=== PATIENT | female | born 1960 | race Caucasian/White ===

== ENCOUNTER 2016-05-13 05:00 | Inpatient (IN) ==
[2016-05-13] MEDS ORDERED: methylPREDNISolone 125 MG/2 ML VIAL IVP ONE (05:19)
[2016-05-13] MEDS ORDERED: Ipratropium/Albuterol Neb 3 ML IH ONE (05:19)
[2016-05-13] MEDS ORDERED: *HR* Promethazine 25 MG/ML VIAL IVP ONE (05:27)
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
[2016-05-13 05:49] LABS: Basophils % 0.3 %; Hemoglobin 15.5 g/dL (11.5-15.4); Immature Granulocytes % 0.5 % (0-4)
[2016-05-13 05:51] LABS: Eosinophils # 0.1 K/mcL (0.0-0.6); Eosinophils % 0.6 %; Hematocrit 48.1 % (35.3-44.9); Immature Platelets 21.2 % (1.1-6.1); Lymphocytes # 1.3 K/mcL (0.6-4.6); Lymphocytes % 10.8 %; Mean Corpuscular HGB Conc 32.2 g/dL (31.6-35.5); Mean Corpuscular Hemoglobin 28.1 pg (28.0-33.3); Mean Corpuscular Volume 87.3 fL (83.0-100.0); Mean Platelet Volume 13.1 fL (9.4-12.4); Neutrophils # 9.8 K/mcL (1.6-8.9); Platelet Count 118 K/mcL (140-400); Red Blood Count 5.51 M/mcL (3.82-4.97); Red Cell Distribution Width 15.9 % (11.5-14.5); Segmented Neutrophils % 79.8 %
[2016-05-13 06:02] LABS: Calcium 8.9 mg/dL (8.6-10.8); Potassium 3.4 mEq/L (3.5-4.5)
[2016-05-13 06:29] LABS: Platelet Estimate Slight Decrease (Normal)
[2016-05-13 06:30] LABS: Polychromasia 1+ (Not Present)
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
[2016-05-13] MEDS ORDERED: Vancomycin 1,000 MG in D5% in Water 250 ML IVPB ONE (06:57)
[2016-05-13] MEDS ORDERED: Cefepime HCl 2,000 MG in D5% in Water (Mini-Bag+) 100 ML IVPB ONE (06:58)
[2016-05-13] MEDS ORDERED: *HR* OxyCODONE/APAP 10/325 TABLET PO ONE (07:19)
[2016-05-13] MEDS ORDERED: *HR* Morphine 2 MG/ML SYRINGE IVP PRN (08:06)
[2016-05-13] MEDS ORDERED: Naloxone 0.4 MG/ML INJ IVP PRN (08:06)
[2016-05-13] MEDS ORDERED: *HR* Digoxin 0.125 MG TABLET PO SCH ×3 (08:15→22:28)
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
[2016-05-13] MEDS ORDERED: Torsemide 20 MG TABLET PO SCH (09:00)
[2016-05-13] MEDS ORDERED: Colchicine 0.6 MG TABLET PO SCH (09:00)
[2016-05-13] MEDS ORDERED: Valsartan 80 MG TABLET PO SCH ×2 (09:00→21:00)
[2016-05-13] MEDS: Magnesium Oxide 400 MG TABLET PO SCH (10:02)
[2016-05-13] MEDS: APIXABAN 5 MG TABLET PO SCH ×2 (10:06→21:48)
[2016-05-13] MEDS: Torsemide 20 MG TABLET PO SCH ×2 (13:05→21:48)
[2016-05-13] MEDS: *HR* OxyCODONE/APAP 5/325 TABLET PO PRN ×2 (13:09→21:48)
[2016-05-13 18:30] LABS: Bilirubin,Urine Negative (Negative); Blood,Urine Trace (Negative); Clarity,Urine Clear (Clear); Color,Urine Dark Yellow (Yellow); Glucose,Urine (UA) Normal (Normal); Ketones,Urine Negative (Negative); Leukocyte Esterase,Urine Negative (Negative); Nitrite,Urine Negative (Negative); Protein,Urine Trace mg/dL (Neg-Trace); Specific Gravity,Urine 1.021 (1.010-1.025); Urobilinogen,Urine Normal (Normal)
[2016-05-13 18:32] LABS: Bacteria,Urine None Seen per hpf (None-Few); Hyaline Casts,Urine None Seen per lpf (None-Few); Squamous Epithelial Cell,Urine Many per lpf (None-Few); WBC,Urine 0-3 per hpf (0-3)
[2016-05-13] MEDS: Cefepime HCl 2,000 MG in D5% in Water (Mini-Bag+) 100 ML IVPB SCH (18:38)
[2016-05-13] MEDS: Vancomycin 1,000 MG in D5% in Water 250 ML IVPB SCH (20:00)
[2016-05-13] MEDS: Melatonin 3 MG TABLET PO SCH (21:48)
[2016-05-13] MEDS: Colchicine 0.6 MG TABLET PO SCH (21:56)
[2016-05-14 00:27] LABS: Basophils % 0.3 %; Eosinophils # 0.1 K/mcL (0.0-0.6); Eosinophils % 0.8 %; Hematocrit 44.7 % (35.3-44.9); Hemoglobin 14.4 g/dL (11.5-15.4); Immature Granulocytes % 0.5 % (0-4); Immature Platelets 19.8 % (1.1-6.1); Lymphocytes # 1.6 K/mcL (0.6-4.6); Lymphocytes % 12.5 %; Mean Corpuscular HGB Conc 32.2 g/dL (31.6-35.5); Mean Corpuscular Hemoglobin 28.2 pg (28.0-33.3); Mean Corpuscular Volume 87.5 fL (83.0-100.0); Mean Platelet Volume 13.8 fL (9.4-12.4); Monocytes # 1.4 K/mcL (0.0-1.3); Monocytes % 11.1 %; Neutrophils # 9.6 K/mcL (1.6-8.9); Platelet Count 102 K/mcL (140-400); Red Blood Count 5.11 M/mcL (3.82-4.97); Red Cell Distribution Width 15.6 % (11.5-14.5); Segmented Neutrophils % 74.8 %
[2016-05-14 00:31] LABS: VBG HCO3 31.2 mEq/L (21-27); VBG PH 7.43 pH Units (7.32-7.42)
[2016-05-14 00:36] LABS: Ionized Calcium 1.13 mmol/L (1.15-1.35)
[2016-05-14 00:41] LABS: Albumin 3.2 g/dL (3.5-5.0); Albumin/Globulin Ratio 0.7 (1.1-2.2); Bilirubin,Total 2.5 mg/dL (0.2-1.2); Calcium 8.7 mg/dL (8.6-10.8); Chol/HDL Ratio 2.4 (0-4.9); Globulin 4.5 g/dL (2.4-3.5); Magnesium 1.9 mg/dL (1.6-2.6); Phosphorous 3.3 mg/dL (2.3-4.7); Potassium 3.5 mEq/L (3.5-4.5); Total Protein 7.7 g/dL (6.0-8.3)
[2016-05-14 00:48] LABS: Digoxin 0.3 ng/mL (0.8-2.0)
[2016-05-14] MEDS: Cefepime HCl 2,000 MG in D5% in Water (Mini-Bag+) 100 ML IVPB SCH ×2 (06:25→17:10)
[2016-05-14] MEDS: Magnesium Oxide 400 MG TABLET PO SCH (08:18)
[2016-05-14] MEDS: *HR* OxyCODONE/APAP 5/325 TABLET PO PRN ×3 (08:18→21:37)
[2016-05-14] MEDS: Vancomycin 1,000 MG in D5% in Water 250 ML IVPB SCH ×2 (08:18→21:25)
[2016-05-14] MEDS: Torsemide 20 MG TABLET PO SCH (08:18)
[2016-05-14] MEDS: APIXABAN 5 MG TABLET PO SCH ×2 (08:18→21:25)
--- NOTE | 2016-05-14 11:11 | Internal Med Progress Note ---
Date of Encounter: 05/14/16 Time of Encounter: 11:09 - Assessment and plan (1) CAP (community acquired pneumonia) Current Visit: Yes Status: Acute Assessment and plan: Patient presents with upper respiratory tract symptoms. Chest x-ray shows mild right-sided pleural effusion with possible underlying consolidation, reviewed independently. Could be having bronchitis and pneumonia, viral versus bacterial. Has been started on IV cefepime and vancomycin. Follow blood cultures and de-escalate antibiotics as needed. Continue supportive care and supplemental oxygen. (2) Acute on chronic systolic (congestive) heart failure Current Visit: Yes Status: Acute Assessment and plan: Patient does have history of systolic and diastolic CHF and came in with elevated BNP and chest x-ray showing pulmonary vascular congestion. She does feel better today although her BNP got worse. We will change diuretics to IV Lasix and monitor urine output. Avoid IV hydration. Continue home medications. Echocardiogram from December 2015 shows EF of 15-20% with global left ventricular systolic dysfunction and moderate diastolic dysfunction with mitral and tricuspid regurgitation and moderate pulmonary hypertension. She does follow with cardiology as outpatient and also is followed at [facility] and is on the list for heart transplant. (3) Gout Current Visit: Yes Status: Chronic Assessment and plan: Continue allopurinol and colchicine. Not in acute exacerbation. Qualifiers: Gout site: unspecified site Gout etiology: unspecified cause Chronicity: chronic Presence of tophus: without tophus Qualified Code(s): M1A.9XX0 - Chronic gout, unspecified, without tophus (tophi) (4) Ischemic cardiomyopathy Current Visit: Yes Status: Chronic (5) Atrial fibrillation Current Visit: Yes Status: Chronic Assessment and plan: Currently rate controlled. Continue Tikosyn. Continue correction anticoagulation with Eliquis. Qualifiers: Atrial fibrillation type: paroxysmal Qualified Code(s): I48.0 - Paroxysmal atrial fibrillation (6) CAD (coronary artery disease) Current Visit: Yes Status: Chronic Assessment and plan: resume home meds; Qualifiers: Coronary Disease-Associated Artery/Lesion type: [place] artery [place] vs. transplanted heart: [place] heart Associated angina: without angina Qualified Code(s): I25.10 - Atherosclerotic heart disease of [place] coronary artery without angina pectoris (7) MINNIE (acute kidney injury) Current Visit: Yes Status: Acute Assessment and plan: Serum creatinine noted to be slightly elevated from baseline. Expect worsening with IV Lasix but patient does need Lasix at this time. Monitor serum creatinine closely. Hold valsartan. - Subjective Interval history: Reports feeling much better and wants to go home today. Improved myalgia, congestion. No chest pain or shortness of breath. Has some leg swelling at baseline, which is not any worse now. - Constitutional Vitals: Temp Pulse Resp BP Pulse Ox 98.5 F 81 14 101/70 90 L 05/14/16 00:15 05/14/16 00:15 05/14/16 00:15 05/14/16 00:15 05/14/16 00:15 General appearance: Present: A&O X 3, answers questions appropriately - Respiratory Respiratory exam: Present: decreased breath sounds (At right base), CTAB. Absent: accessory muscle use, rales, rhonchi, wheezes - Cardiovascular Cardiovascular exam: Present: irregular rhythm, +S1, +S2. Absent: diastolic murmur, gallop, rubs, systolic murmur - GI/Abdominal GI/Abdominal exam: Present: normal bowel sounds, soft, no peritoneal signs. Absent: distended, tenderness - Extremities Exam Extremities exam: Present: full ROM, pedal edema, warm, radial pulses palpable and symetrical. Absent: calf tenderness, cyanotic - Neurological Exam Neurological exam: Present: CN II-XII intact, oriented X3, no focal deficits. Absent: pronater drift, facial droop, speech deficit - Skin Skin exam: Present: dry, intact Internal Medicine: Result - Labs CBC & Chem 7: 05/14/16 00:17 05/14/16 00:17 Labs: Short CBC 05/14/16 Range/Units 00:17 WBC 12.8 H (4.3-11.1) K/mcL Hgb 14.4 (11.5-15.4) g/dL Hct 44.7 (35.3-44.9) % Plt Count 102 L (140-400) K/mcL Neutrophils # 9.6 H (1.6-8.9) K/mcL BMP 05/14/16 00:17 Sodium 134 L Potassium 3.5 Chloride 98 Carbon Dioxide 26 BUN 19 Creatinine 1.28 H Glucose 118 H Calcium 8.7 Cardiac Enzymes 05/13/16 05/13/16 05/14/16 Range/Units 11:11 17:20 00:17 Troponin I 0.09 H* 0.09 H* 0.09 H* (0-0.03) ng/mL Liver Function 05/14/16 Range/Units 00:17 Total Bilirubin 2.5 H (0.2-1.2) mg/dL AST 21 (5-34) Units/L ALT 9 (0-55) Units/L Alkaline Phosphatase 113 (38-126) Units/L Albumin 3.2 L (3.5-5.0) g/dL Urine 05/13/16 Range/Units 18:00 Urine Color Dark Yellow (Yellow) Urine Clarity Clear (Clear) Urine pH 6.0 (5.0-8.0) pH Units Ur Specific [place] 1.021 (1.010-1.025) Urine Protein Trace (Neg-Trace) mg/dL Urine Glucose (UA) Normal (Normal) mg/dL Consult Discharge Plan - Plan Referrals: Giovanny Reardon MD [Primary Care Provider] -
[2016-05-14] MEDS: Furosemide 40 MG/4 ML VIAL IVP SCH (11:49)
[2016-05-14] MEDS ORDERED: *HR* Metoprolol 5 MG/5 ML VIAL IVP PRN (17:16)
[2016-05-14] MEDS: Melatonin 3 MG TABLET PO SCH (21:25)
[2016-05-14] MEDS: Colchicine 0.6 MG TABLET PO SCH (21:27)
[2016-05-15 05:42] VITALS: BP 107/82
[2016-05-15] MEDS: Cefepime HCl 2,000 MG in D5% in Water (Mini-Bag+) 100 ML IVPB SCH (06:25)
[2016-05-15] MEDS: Furosemide 40 MG/4 ML VIAL IVP SCH ×2 (06:25→09:12)
[2016-05-15 06:37] LABS: Basophils % 0.3 %; Eosinophils # 0.3 K/mcL (0.0-0.6); Hematocrit 42.9 % (35.3-44.9); Immature Granulocytes % 0.6 % (0-4); Lymphocytes # 1.4 K/mcL (0.6-4.6); Lymphocytes % 14.4 %; Mean Corpuscular HGB Conc 32.6 g/dL (31.6-35.5); Mean Corpuscular Hemoglobin 28.6 pg (28.0-33.3); Mean Corpuscular Volume 87.6 fL (83.0-100.0); Mean Platelet Volume 13.7 fL (9.4-12.4); Monocytes # 0.7 K/mcL (0.0-1.3); Monocytes % 6.8 %; Neutrophils # 7.2 K/mcL (1.6-8.9); Platelet Count 96 K/mcL (140-400); Red Cell Distribution Width 15.8 % (11.5-14.5); Segmented Neutrophils % 74.9 %
[2016-05-15 07:07] LABS: Calcium 8.5 mg/dL (8.6-10.8)
--- NOTE | 2016-05-15 07:10 | Electrocardiograph Report ---
[address] [place], [place] [address] Test Date: 2016-05-13 Pat Name: Nadja Avina Department: 105 Room: 2NE26 Gender: F Manager Deli: : 1960 Requested By: Jesse Sotelo Order Number: [id number] Reading MD: Brayden Carbajal MD Measurements Intervals [place] Rate: 92 P: 43 [place]: 199 QRS: -69 QRSD: 110 T: 58 QT: 399 QTc: 449 Interpretive Statements SINUS RHYTHM LEFT ATRIAL ENLARGEMENT MARKED LEFT AXIS DEVIATION LATERAL MYOCARDIAL INFARCTION, OF INDETERMINATE AGE Electronically Signed On 05-15-2016 7:08:28 EST by Brayden Carbajal MD
[2016-05-15] MEDS: Vancomycin 1,000 MG in D5% in Water 250 ML IVPB SCH (09:13)
[2016-05-15] MEDS: APIXABAN 5 MG TABLET PO SCH (09:14)
[2016-05-15] MEDS: Magnesium Oxide 400 MG TABLET PO SCH (09:14)
[2016-05-15] MEDS: *HR* OxyCODONE/APAP 5/325 TABLET PO PRN (10:04)
--- NOTE | 2016-05-15 10:07 | Discharge Summary ---
Date of Encounter: 05/15/16 Time of Encounter: 10:04 - Discharge Diagnosis (1) CAP (community acquired pneumonia) Priority: Primary Status: Acute (2) Acute on chronic systolic (congestive) heart failure Priority: Primary Status: Acute (3) Gout Priority: Secondary Status: Chronic Qualifiers: Gout site: unspecified site Gout etiology: unspecified cause Chronicity: chronic Presence of tophus: without tophus Qualified Code(s): M1A.9XX0 - Chronic gout, unspecified, without tophus (tophi) (4) Ischemic cardiomyopathy Priority: Secondary Status: Chronic (5) Atrial fibrillation Priority: Secondary Status: Chronic Qualifiers: Atrial fibrillation type: paroxysmal Qualified Code(s): I48.0 - Paroxysmal atrial fibrillation (6) CAD (coronary artery disease) Priority: Secondary Status: Chronic Qualifiers: Coronary Disease-Associated Artery/Lesion type: [place] artery [place] vs. transplanted heart: [place] heart Associated angina: without angina Qualified Code(s): I25.10 - Atherosclerotic heart disease of [place] coronary artery without angina pectoris (7) MINNIE (acute kidney injury) Priority: Primary Status: Acute - Discharge Medications Prescriptions: Benzonatate [Tessalon] 100 mg PO TID PRN #30 capsule PRN Reason: Cough Levofloxacin [Levaquin] 500 mg PO DAILY #5 tablet Home Medications: Allopurinol [Zyloprim 100 MG] 100 mg PO DAILY 05/13/16 [History] Apixaban [Eliquis] 5 mg PO BID 05/13/16 [History] Clopidogrel [Plavix] 75 mg PO DAILY 05/13/16 [History] Digoxin [Lanoxin] 0.125 mg PO MOWEFR 05/13/16 [History] Dofetilide [Tikosyn] 0.25 mg PO BID 05/13/16 [History] Magnesium Oxide [Mag-Ox] 400 mg PO DAILY 05/13/16 [History] Melatonin 3 mg PO HS 05/13/16 [History] Nitroglycerin [Nitrostat] 0.4 mg SL AD PRN 05/13/16 [History] Oxycodone HCl 10 mg PO Q6H PRN 05/13/16 [History] Potassium Chloride 20 meq PO BID 05/13/16 [History] Promethazine [Phenergan] 25 mg PO Q6H PRN 05/13/16 [History] Simvastatin [Zocor] 40 mg PO HS 05/13/16 [History] Torsemide [Demadex] 80 mg PO DAILY 05/13/16 [History] Valsartan 40 mg PO DAILY 05/13/16 [History] Benzonatate [Tessalon] 100 mg PO TID PRN #30 capsule 05/15/16 [Rx] Levofloxacin [Levaquin] 500 mg PO DAILY #5 tablet 05/15/16 [Rx] Allergies/Adverse Reactions: Allergies Amoxicillin Allergy (Verified 04/01/15 15:10) Hives aspirin Allergy (Verified 04/01/15 15:10) Anaphylaxis celecoxib [From Celebrex] Allergy (Verified 04/01/15 15:10) Anaphylaxis dicyclomine Allergy (Verified 04/01/15 15:10) Hives doxycycline Allergy (Verified 04/01/15 15:10) Hives gabapentin [From Neurontin] Allergy (Verified 04/01/15 15:10) Hives gentamicin [Gentamicin] Allergy (Verified 04/01/15 15:10) Hives methylprednisolone Allergy (Verified 04/01/15 15:10) Palpitations povidone-iodine [From Betadine] Allergy (Verified 04/01/15 15:10) Hives ramipril [From Altace] Allergy (Verified 04/01/15 15:10) Cough soap [From Betadine] Allergy (Verified 04/01/15 15:10) Hives Sulfa (Sulfonamide Antibiotics) Allergy (Verified 04/01/15 15:10) Palpitations Date of admission: 05/13/16 07:31 Primary care physician: Giovanny Reardon MD Discharging clinician: Libra Lima Anticipated date of discharge: 05/15/16 - Patient Status Disposition: Home, Self-Care Condition: Good Functional capacity at discharge: independent ambulation Overall status at discharge: patient is progressing back to baseline - Discharge Instructions Instructions: Heart Failure (DC), Atrial Fibrillation (DC), Sepsis (DC), Pneumonia (DC) Follow Up With: Giovanny Reardon MD [Primary Care Provider] - 05/18/16 1:20 pm Additional Instructions: F/up with [facility] as scheduled - Diet and Activity Activity: resume usual activities as tolerated, wear oxygen at all times Diet: low fat, low cholesterol, low salt diet Hospital course: Ms. Avina is a 55 year old female with multiple medical problems, admitted with respiratory complaints. She was noted to have leukocytosis and chest XRay showed right basal pleural effusion and possible underlying infiltrates. SHe was started on broad spectrum IV antibiotics for possible HCAP. She was also noted to have elevated BNP which got worse by next day and she has h/o- severe systolic CHF. She was started on IV Lasix with less than appropriate urine output, however she remains asymptomatic and her O2 requirements are at baseline. SHe is doing much better and wants to be discharged. She is noted to have multiple antibiotic allergies. She was given a dose of Levaquin and EKG checked which showed no significant change in QTc and she is being discharged on the same. - Time Spent with Patient Total time spent providing and/or coordinating discharge services: Greater than 30 minutes (50 min) - Constitutional Vitals: Temp Pulse Resp BP Pulse Ox 97.8 F 119 18 107/82 97 05/15/16 05:40 05/15/16 05:40 05/15/16 05:40 05/15/16 05:40 05/15/16 05:40 General appearance: Present: A&O X 3, answers questions appropriately - Respiratory Respiratory exam: Present: CTAB. Absent: accessory muscle use, rales, rhonchi, wheezes - Cardiovascular Cardiovascular exam: Present: irregular rhythm, +S1, +S2, tachycardia. Absent: diastolic murmur, gallop, rubs, systolic murmur
[2016-05-15] MEDS ORDERED: levoFLOXacin 500 MG TABLET PO ONE (10:16)
[2016-05-15] MEDS ORDERED: Aminoglycoside Consult 1 EACH MC ONE (13:45)
--- NOTE | 2016-05-16 13:51 | Electrocardiograph Report ---
[address] [place] [address] Test Date: 2016-05-15 Pat Name: Nadja Avina Department: 111 Room: 2NE26 Gender: F Hand Rounder: : 1960 Requested By: Janet Lima Order Number: [id number] Reading MD: Charles Escalante Measurements Intervals [place] Rate: 117 P: [place]: 0 QRS: 258 QRSD: 155 T: 25 QT: 417 QTc: 486 Interpretive Statements ATRIAL FIBRILLATION WITH RAPID VENTRICULAR RESPONSE MARKED RIGHT AXIS DEVIATION RIGHT BUNDLE BRANCH BLOCK INFERIOR MYOCARDIAL INFARCTION, OF INDETERMINATE AGE Electronically Signed On 05-16-2016 13:49:21 EST by Charles Escalante
--- NOTE | 2016-05-16 13:51 | Electrocardiograph Report ---
[address] [place] [address] Test Date: 2016-05-15 Pat Name: Nadja Avina Department: 111 Room: 2NE26 Gender: F Sound Recording Technician: : 1960 Requested By: Janet Lima Order Number: [id number] Reading MD: Charles Escalante Measurements Intervals [place] Rate: 109 P: [place]: 0 QRS: -79 QRSD: 109 T: 48 QT: 364 QTc: 428 Interpretive Statements ATRIAL FIBRILLATION WITH RAPID VENTRICULAR RESPONSE WITH ABERRANT CONDUCTION OR VENTRICULAR PREMATURE COMPLEXES LATERAL MYOCARDIAL INFARCTION, OF INDETERMINATE AGE INFERIOR MYOCARDIAL INFARCTION, PROBABLY OLD Electronically Signed On 05-16-2016 13:49:55 EST by Charles Escalante
== END 2016-05-15 13:46 | disposition home or self-care (01) | DRG 291 ==
LOC: EMEROO 05:00 → 2NENU 07:31
PROVIDERS: ADMIT Internal Medicine; ATTEND Internal Medicine

== ENCOUNTER 2016-06-03 17:25 | Inpatient (IN) ==
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
[2016-06-03] MEDS ORDERED: *HR* LORazepam 2 MG/ML VIAL IVP ONE (17:48)
[2016-06-03 17:55] LABS: ABG Base Excess 0.9 mEq/L (-2.0 to 3.0); ABG HCO3 29.3 mEQ/L (21-27); ABG Oxygen Saturation 87 % (95-98); ABG PCO2 61 mmHg (35-45); ABG PH 7.29 pH Units (7.32-7.45); ABG PO2 59 mmHg (85-104); ABG TCO2 31.2 mEq/L (20-26)
[2016-06-03] MEDS: 0.9 % Sodium Chloride 1,000 ML IVC ONE ×2 (17:56→21:15)
[2016-06-03 17:57] LABS: Blood Gas FiO2 40 %
[2016-06-03 18:00] LABS: Basophils # 0.1 K/mcL (0.0-0.2); Basophils % 0.5 %; Eosinophils % 0.3 %; Hematocrit 47.4 % (35.3-44.9); Hemoglobin 14.6 g/dL (11.5-15.4); Immature Granulocytes % 0.7 % (0-4); Lymphocytes # 1.4 K/mcL (0.6-4.6); Lymphocytes % 10.2 %; Mean Corpuscular HGB Conc 30.8 g/dL (31.6-35.5); Mean Corpuscular Hemoglobin 27.5 pg (28.0-33.3); Mean Corpuscular Volume 89.4 fL (83.0-100.0); Mean Platelet Volume 12.7 fL (9.4-12.4); Monocytes # 1.7 K/mcL (0.0-1.3); Monocytes % 12.3 %; Neutrophils # 10.4 K/mcL (1.6-8.9); Platelet Count 230 K/mcL (140-400); Red Cell Distribution Width 16.5 % (11.5-14.5)
[2016-06-03] MEDS: Ipratropium/Albuterol Neb 3 ML IH SCH (18:05)
[2016-06-03 18:06] LABS: INR 3.7
[2016-06-03] MEDS ORDERED: Furosemide 40 MG/4 ML VIAL IVP ONE (18:07)
[2016-06-03 18:08] LABS: Activated Partial Thrombo Time 54.7 Seconds (26.0-36.0)
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
[2016-06-03 18:16] LABS: Albumin 3.4 g/dL (3.5-5.0); Albumin/Globulin Ratio 0.7 (1.1-2.2); Bilirubin,Total 2.2 mg/dL (0.2-1.2); Calcium 9.6 mg/dL (8.6-10.8); Magnesium 2.5 mg/dL (1.6-2.6); Phosphorous 5.9 mg/dL (2.3-4.7); Total Protein 8.4 g/dL (6.0-8.3)
[2016-06-03 18:20] LABS: Potassium 6.9 mEq/L (3.5-4.5)
[2016-06-03] MEDS ORDERED: Insulin Human Regular 10 UNIT in 0.9 % Sodium Chloride 10 ML IV ONE (18:21)
[2016-06-03] MEDS ORDERED: *HR* Dextrose 50 % in Water (Syg) 50 ML SYRINGE IVP ONE (18:21)
[2016-06-03] MEDS ORDERED: Sodium Bicarbonate 50 MEQ/50 ML VIAL IVP ONE (20:00)
[2016-06-03] MEDS: Calcium Gluconate 1,000 MG in D5% in Water 100 ML IVPB ONE ×2 (20:07→22:15)
[2016-06-03] MEDS ORDERED: Sodium Bicarbonate 50 MEQ/50 ML VIAL ONE (20:13)
[2016-06-03] MEDS ORDERED: Amiodarone Premix 360 MG/200 ML BAG IVC ONE ×2 (20:53→20:57)
[2016-06-03] MEDS ORDERED: Amiodarone Premix 150 MG/100 ML BAG IVPB ONE ×2 (20:53→20:57)
[2016-06-03] MEDS ORDERED: Albumin 25% 25gram/100mL 25 GM/100 ML IV.SOLN IVPB ONE (21:06)
[2016-06-03] MEDS ORDERED: Albumin 25% 25gram/100mL 25 GM/100 ML IV.SOLN ONE (21:10)
[2016-06-03] MEDS ORDERED: 0.9 % Sodium Chloride 1,000 ML ONE (21:10)
[2016-06-03] MEDS: 0.9 % Sodium Chloride 500 ML IVC ONE (21:15)
[2016-06-03 21:20] LABS: ABG Base Excess 1.2 mEq/L (-2.0 to 3.0); ABG HCO3 30.3 mEQ/L (21-27); ABG Oxygen Saturation 89 % (95-98); ABG PCO2 69 mmHg (35-45); ABG PH 7.25 pH Units (7.32-7.45); ABG PO2 66 mmHg (85-104); ABG TCO2 32.4 mEq/L (20-26); Blood Gas FiO2 60 %
[2016-06-03 21:36] LABS: Albumin 2.9 g/dL (3.5-5.0); Albumin/Globulin Ratio 0.6 (1.1-2.2); Bilirubin,Total 1.6 mg/dL (0.2-1.2); Calcium 9.4 mg/dL (8.6-10.8); Globulin 4.5 g/dL (2.4-3.5); Magnesium 2.4 mg/dL (1.6-2.6); Potassium 5.9 mEq/L (3.5-4.5); Total Protein 7.4 g/dL (6.0-8.3)
[2016-06-03] MEDS ORDERED: Calcium Gluconate 1,000 MG in D5% in Water 100 ML IVPB ONE (21:49)
[2016-06-03] MEDS ORDERED: Vancomycin 1,250 MG in D5% in Water 250 ML IVPB ONE (22:00)
[2016-06-03] MEDS ORDERED: Vancomycin (wt based) 1,000 MG VIAL IV SCH (22:00)
[2016-06-03] MEDS ORDERED: Lidocaine -MPF 2% 5 ML VIAL INFILT ONE (22:13)
[2016-06-03] MEDS ORDERED: PHENYLEPHRINE IVC SCH (22:15)
[2016-06-03] MEDS ORDERED: WATER IVC SCH (22:15)
[2016-06-03] MEDS ORDERED: D5 IVC SCH (22:15)
[2016-06-03] MEDS: Phenylephrine 20 MG in D5% in Water 250 ML IVC SCH (22:30)
[2016-06-03] MEDS: FentaNYL (PF) 1,000 MCG in 0.9 % Sodium Chloride 80 ML IVC SCH (22:43)
--- NOTE | 2016-06-03 22:51 | Procedure Note ---
Date of procedure: 06/03/16 Pre-op diagnosis: Respiratory failure with hypoxia and hypercapnia Post-op diagnosis: same Procedure: Endotracheal Intubation Date: 06/03/16 Time: 2144 Indication: Respiratory failure with hypoxia and hypercapnia Resident: Dr. Chapman Attending: Dr. Baeza A time-out was completed verifying correct patient, procedure, site, positioning , and special equipment if applicable. The patient was placed in a flat position. Sedation was obtained using Versed 5mg, and additionally with Etomidate 20mg. The patient was easily ventilated using an ambu bag. The MAC 3 BLADE was used and inserted into the oropharynx at which time there was a Grade 1 view of the vocal cords. A 7.5-cuban endotracheal tube was inserted and visualized going through the vocal cords. The stylette was removed. Colorimetric change was visualized on the CO2 meter. Breath sounds were heard in both lung merlos equally. The endotracheal tube was placed at 23 cm, measured at the teeth. Dr. Baeza was present for the entire procedure. A chest x-ray was ordered to assess for pneumothorax and verify endotrachealtube placement. Estimated Blood Loss: 0 cc The patient tolerated the procedure well and there were no complications. Anesthesia: IV sedation Surgeon: Huber Chapman [employer] Maintenance Technician: Guzman Baeza Estimated blood loss (cc): 0 IV fluids (cc): 0 Urine output (cc): 0 Pathology: none sent Condition: critical Disposition: ICU
--- NOTE | 2016-06-03 22:55 | Procedure Note ---
Date of procedure: 06/03/16 Pre-op diagnosis: Hypotension, respiratory failure with hypoxia and hypercapnia Post-op diagnosis: same Procedure: Central Venous Catheter (CVC, Central Line) Placement Date: 06/03/16 Time: 2200 Indication: Hemodynamic monitoring/Intravenous access in the setting of hypotension and is toward failure with hypoxia and hypercapnia Resident: Dr. Chapman Attending: Dr. Baeza A time-out was completed verifying correct patient, procedure, site, positioning , and special equipment if applicable. The patient was placed in a dependent position appropriate for central line placement based on the vein to be cannulated. The patients right groin was prepped and draped in sterile fashion. 1% Lidocaine was used to anesthetize the surrounding skin area. A triple lumen 9-Citizen Of [place] Cord[place] catheter was introduced into the the common femoral vein using the Seldinger technique and under ultrasound guidance. The catheter was threaded smoothly over the guide wire and appropriate blood return was obtained. Each lumen of the catheter was evacuated of air and flushed with sterile saline. The catheter was then sutured in place to the skin and a sterile dressing applied. Perfusion to the extremity distal to the point of catheter insertion was checked and found to be adequate. Dr. Baeza was present for the entire procedure. Estimated Blood Loss: 5 cc The patient tolerated the procedure well and there were no complications. Anesthesia: IV sedation Surgeon: Huber Chapman Psychology Tech: Guzman Baeza Estimated blood loss (cc): 5 IV fluids (cc): 500 Urine output (cc): 0 Pathology: none sent Condition: critical Disposition: ICU
[2016-06-03] MEDS: Vasopressin 40 UNIT in D5% in Water 100 ML IVC SCH (23:08)
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
[2016-06-03 23:54] LABS: ABG Base Excess -1.5 mEq/L (-2.0 to 3.0); ABG HCO3 29.5 mEQ/L (21-27); ABG Oxygen Saturation 81 % (95-98); ABG PCO2 79 mmHg (35-45); ABG PO2 57 mmHg (85-104); ABG TCO2 31.9 mEq/L (20-26)
[2016-06-03 23:55] LABS: ABG PH 7.18 pH Units (7.32-7.45); Blood Gas FiO2 100 %
[2016-06-04] MEDS: Ipratropium/Albuterol Neb 3 ML IH SCH ×8 (00:14→23:35)
[2016-06-04] MEDS ORDERED: Naloxone 0.4 MG/ML INJ IVP PRN (00:23)
[2016-06-04] MEDS: Hydrocortisone Sodium Succ 100 MG/2 ML VIAL IVP SCH ×3 (00:25→15:25)
[2016-06-04] MEDS ORDERED: 0.9 % Sodium Chloride 1,000 ML IVC ONE (00:27)
[2016-06-04] MEDS: Phenylephrine 20 MG in D5% in Water 250 ML IVC SCH ×4 (00:29→10:28)
--- NOTE | 2016-06-04 01:33 | Event Note ---
Date of Encounter: 06/04/16 Time of Encounter: 01:32 Conversation with the patient's about code status. Changed to DNR CCA.
[2016-06-04] MEDS: Norepinephrine 4 MG in D5% in Water 250 ML IVC SCH ×5 (02:00→19:22)
[2016-06-04] MEDS: Amiodarone Premix 360 MG/200 ML BAG IVC SCH ×2 (02:57→13:46)
[2016-06-04 03:49] LABS: Basophils % 0.1 %; Hematocrit 43.3 % (35.3-44.9); Hemoglobin 13.1 g/dL (11.5-15.4); Immature Granulocytes % 0.7 % (0-4); Lymphocytes # 0.8 K/mcL (0.6-4.6); Lymphocytes % 5.5 %; Mean Corpuscular HGB Conc 30.3 g/dL (31.6-35.5); Mean Corpuscular Hemoglobin 27.5 pg (28.0-33.3); Mean Platelet Volume 12.1 fL (9.4-12.4); Monocytes % 7.1 %; Neutrophils # 11.8 K/mcL (1.6-8.9); Platelet Count 163 K/mcL (140-400); Red Blood Count 4.76 M/mcL (3.82-4.97); Red Cell Distribution Width 16.6 % (11.5-14.5); Segmented Neutrophils % 86.6 %
[2016-06-04 03:54] LABS: INR 3.9
[2016-06-04 03:57] LABS: Activated Partial Thrombo Time 51.6 Seconds (26.0-36.0)
[2016-06-04 04:02] LABS: Prothrombin Time 43.3 Seconds (9.4-12.1)
[2016-06-04 04:06] LABS: Albumin 2.7 g/dL (3.5-5.0); Albumin/Globulin Ratio 0.8 (1.1-2.2); Bilirubin,Total 1.8 mg/dL (0.2-1.2); Calcium 8.4 mg/dL (8.6-10.8); Globulin 3.6 g/dL (2.4-3.5); Magnesium 2.2 mg/dL (1.6-2.6); Phosphorous 5.8 mg/dL (2.3-4.7); Potassium 5.1 mEq/L (3.5-4.5); Total Protein 6.3 g/dL (6.0-8.3)
[2016-06-04 04:47] LABS: ABG Base Excess 0.1 mEq/L (-2.0 to 3.0); ABG HCO3 30.4 mEQ/L (21-27); ABG Oxygen Saturation 88 % (95-98); ABG PH 7.21 pH Units (7.32-7.45); ABG PO2 66 mmHg (85-104); ABG TCO2 32.7 mEq/L (20-26)
[2016-06-04 04:48] LABS: Blood Gas FiO2 100 %
[2016-06-04 04:49] LABS: ABG PCO2 76 mmHg (35-45)
[2016-06-04] MEDS: Famotidine 20 MG/2 ML VIAL IVP SCH (06:23)
[2016-06-04 06:41] LABS: Bilirubin,Urine Negative (Negative); Blood,Urine Moderate (Negative); Clarity,Urine Clear (Clear); Color,Urine Yellow (Yellow); Glucose,Urine (UA) Normal (Normal); Ketones,Urine Negative (Negative); Leukocyte Esterase,Urine Trace (Negative); Nitrite,Urine Negative (Negative); Protein,Urine Negative (Neg-Trace); Specific Gravity,Urine 1.013 (1.010-1.025); Urobilinogen,Urine Normal (Normal)
[2016-06-04 06:43] LABS: Bacteria,Urine None Seen per hpf (None-Few); RBC,Urine 15-30 per hpf (0-3); Squamous Epithelial Cell,Urine Many per lpf (None-Few)
[2016-06-04 06:53] LABS: Hyaline Casts,Urine None Seen per lpf (None-Few)
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
[2016-06-04] MEDS ORDERED: *HR* Midazolam HCl 2 MG/2 ML VIAL IV ONE (08:57)
[2016-06-04] MEDS ORDERED: *HR* Etomidate 20 MG/10 ML AMPUL IVP ONE (08:57)
[2016-06-04] MEDS ORDERED: *HR* Midazolam HCl 5 MG/5 ML VIAL IVP ONE (08:57)
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
[2016-06-04] MEDS ORDERED: Lacri-Lube 3.5 GM TUBE BOTH EYES PRN (10:06)
[2016-06-04] MEDS ORDERED: Dextrose Gel 15 GM PO PRN ×2 (10:08)
[2016-06-04] MEDS ORDERED: D5% in Water 1,000 ML IVC PRN (10:08)
[2016-06-04] MEDS ORDERED: *HR* Dextrose 50 % in Water (Syg) 50 ML SYRINGE IVP PRN (10:08)
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
[2016-06-04] MEDS ORDERED: 0.9 % Sodium Chloride 500 ML ONE (10:47)
[2016-06-04] MEDS ORDERED: Levofloxacin 750 MG/150 ML 750 MG/150 ML BAG IVPB SCH (11:00)
[2016-06-04] MEDS ORDERED: *HR* Heparin 5,000 UNIT/ML VIAL ONE (11:57)
[2016-06-04] MEDS ORDERED: Piperacillin/Tazobactam 3.375 GM in D5% in Water (Mini-Bag+) 100 ML IVPB SCH ×2 (12:00)
[2016-06-04] MEDS: 0.9 % Sodium Chloride 500 ML IVC ONE (12:06)
[2016-06-04] MEDS: Insulin LISPRO 300 UNITS/3 ML VIAL SQ SCH ×2 (12:14→17:42)
--- NOTE | 2016-06-04 12:27 | Procedure Note ---
Date of procedure: 06/04/16 Pre-op diagnosis: Acute respiratory failure and acute on chronic renal failure Post-op diagnosis: same Procedure: Procedure: Hemodialysis catheter placement Consent: Patient's family was explained the indication and risks of procedure. Questions were answered and consent was signed prior to procedure. Procedure summary: A timeout was performed. The patient's left groin region was prepped and draped in sterile fashion using chlorhexidine scrub. Patient also on the ventilator on drips for sedation. The left femoral vein was accessed under ultrasound guidance using a finder needle and sheath. Venous blood was withdrawn and the sheath was advanced into the vein and the needle was withdrawn. A guidewire was advanced through the sheath. A small incision was made with a 10 blade scalpel and the sheath was exchanged for a 12F dilator over the guidewire until appropriate dilation was obtained. The dilator was removed and an 11.5-Icelandic Tri-Flow Triple Lumen catheter central venous was advanced over the guidewire and secured into place with sutures. At the time of procedure completion, all ports aspirated and flushed properly. Complications: None Estimated blood loss: 5 mL Anesthesia: IV sedation Surgeon: Anselmo Carter Estimated blood loss (cc): 5 Pathology: none sent Condition: critical Disposition: ICU
--- NOTE | 2016-06-04 12:32 | Procedure Note ---
Date of procedure: 06/04/16 Pre-op diagnosis: Shock with acute respiratory failure Post-op diagnosis: same Procedure: Procedure: Left femoral arterial line placement Consent: Patient's family was explained the indication and risks of procedure. Questions were answered and consent was signed prior to procedure. Procedure summary: A timeout was performed. The patient's left groin region was prepped and draped in sterile fashion using chlorhexidine scrub. Left femoral artery was accessed under ultrasound guidance using a finder needle and sheath. Arterilal blood was withdrawn and the sheath was advanced into the vein and the needle was withdrawn. A guidewire was advanced through the sheath. Arterial catheter passed over the guidewire until appropriate dilation was obtained. Single lumen catheter was advanced over the guidewire and secured into place with sutures. At the time of procedure completion, this was connected with A-line set up and arterial wave form was observed. Complications: None Estimated blood loss: 2 mL Anesthesia: IV sedation Surgeon: Anselmo Carter Estimated blood loss (cc): 2 Condition: critical Disposition: ICU
[2016-06-04] MEDS ORDERED: *HR* Alteplase (Cathflo) 2 MG VIAL IVP PRN (12:34)
[2016-06-04] MEDS: Lacri-Lube 3.5 GM TUBE BOTH EYES SCH ×3 (12:59→20:38)
[2016-06-04 14:06] LABS: ABG Base Excess -0.3 mEq/L (-2.0 to 3.0); ABG HCO3 28.9 mEQ/L (21-27); ABG Oxygen Saturation 88 % (95-98); ABG PCO2 66 mmHg (35-45); ABG PH 7.25 pH Units (7.32-7.45); ABG PO2 63 mmHg (85-104); ABG TCO2 30.9 mEq/L (20-26)
[2016-06-04 14:07] LABS: Blood Gas FiO2 100 %; Blood Gas VT 450 cc
[2016-06-04] MEDS: 0.9 % Sodium Chloride 1,000 ML PRIME SCH ×4 (14:10→16:24)
[2016-06-04] MEDS: PrismaSATE BGK 4/2.5 5,000 ML CRRT SCH ×3 (14:13→21:22)
[2016-06-04] MEDS ORDERED: 0.9 % Sodium Chloride 250 ML ONE (14:16)
[2016-06-04] MEDS: Chlorhexidine Rinse 15 ML MOUTHWASH MM SCH (20:38)
[2016-06-04] MEDS: Norepinephrine 8 MG in D5% in Water 500 ML IVC SCH (22:39)
[2016-06-05] MEDS ORDERED: Vancomycin 1,250 MG in D5% in Water 250 ML IVPB ONE
[2016-06-05] MEDS: Hydrocortisone Sodium Succ 100 MG/2 ML VIAL IVP SCH ×3 (00:14→15:38)
[2016-06-05] MEDS: Lacri-Lube 3.5 GM TUBE BOTH EYES SCH ×6 (00:14→19:50)
[2016-06-05] MEDS: Insulin LISPRO 300 UNITS/3 ML VIAL SQ SCH ×2 (00:19→06:38)
[2016-06-05] MEDS: Amiodarone Premix 360 MG/200 ML BAG IVC SCH ×2 (01:00→13:52)
[2016-06-05] MEDS: PrismaSATE BGK 4/2.5 5,000 ML CRRT SCH ×5 (02:15→22:19)
[2016-06-05] MEDS: Ipratropium/Albuterol Neb 3 ML IH SCH ×5 (03:37→20:04)
[2016-06-05 04:08] LABS: Basophils % 0.1 %; Hematocrit 44.5 % (35.3-44.9); Hemoglobin 13.8 g/dL (11.5-15.4); Immature Granulocytes % 0.5 % (0-4); Lymphocytes # 0.6 K/mcL (0.6-4.6); Lymphocytes % 2.6 %; Mean Corpuscular Hemoglobin 27.9 pg (28.0-33.3); Mean Corpuscular Volume 89.9 fL (83.0-100.0); Mean Platelet Volume 12.3 fL (9.4-12.4); Monocytes # 1.7 K/mcL (0.0-1.3); Monocytes % 7.8 %; Neutrophils # 19.4 K/mcL (1.6-8.9); Nucleated Red Blood Cells 0.1 /100 WBC (0); Platelet Count 167 K/mcL (140-400); Red Blood Count 4.95 M/mcL (3.82-4.97); Red Cell Distribution Width 16.7 % (11.5-14.5)
[2016-06-05] MEDS: Norepinephrine 8 MG in D5% in Water 500 ML IVC SCH ×4 (04:14→19:45)
[2016-06-05 04:26] LABS: Albumin 2.8 g/dL (3.5-5.0); Albumin/Globulin Ratio 0.7 (1.1-2.2); Bilirubin,Indirect 0.5 mg/dL (0.0-1.2); Bilirubin,Total 1.5 mg/dL (0.2-1.2); Calcium 8.4 mg/dL (8.6-10.8); Globulin 4.3 g/dL (2.4-3.5); Phosphorous 3.8 mg/dL (2.3-4.7); Potassium 4.7 mEq/L (3.5-4.5); Total Protein 7.1 g/dL (6.0-8.3)
[2016-06-05] MEDS: Famotidine 20 MG/2 ML VIAL IVP SCH (05:55)
[2016-06-05] MEDS: FentaNYL (PF) 1,000 MCG in 0.9 % Sodium Chloride 80 ML IVC SCH (06:14)
--- NOTE | 2016-06-05 06:35 | Electrocardiograph Report ---
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
[2016-06-05] MEDS: Vasopressin 40 UNIT in D5% in Water 100 ML IVC SCH (06:41)
--- NOTE | 2016-06-05 06:50 | Electrocardiograph Report ---
[address] [place] [address] Test Date: 2016-06-03 Pat Name: Nadja Avina Department: 104 Room: [facility] Gender: F Mosaic Tile Maker: : 1960 Requested By: Jesse Sotelo Order Number: [id number] Reading MD: Raffi Blackman MD Measurements Intervals [place] Rate: 142 P: [place]: 0 QRS: -64 QRSD: 132 T: 83 QT: 316 QTc: 398 Interpretive Statements ATRIAL FIBRILLATION WITH RAPID VENTRICULAR RESPONSE WITH ABERRANT CONDUCTION RIGHT BUNDLE BRANCH BLOCK INFERIOR MYOCARDIAL INFARCTION, OF INDETERMINATE AGE Electronically Signed On 06-05-2016 6:49:12 EDT by Raffi Blackman MD
--- NOTE | 2016-06-05 06:53 | Electrocardiograph Report ---
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
--- NOTE | 2016-06-05 07:09 | Pulmonology Progress Note ---
<Jamal Katz W - Last Filed: 06/05/16 10:35> Objective PUL Vital signs: Last Vital Signs Temp 97.8 F 06/05/16 07:53 Pulse 129 06/05/16 07:53 Resp 15 06/05/16 07:53 BP 94/54 06/05/16 07:53 Pulse Ox 90 L 06/05/16 07:53 Ventilator Settings Ventilator Settings: Ventilator Settings, Last 8 Hours Ventilator Mode VC+ Ventilator Mode VC+ Ventilator Mode VC+ Ventilator Mode VC+ Ventilator Mode VC+ Ventilator Mode VC+ Ventilator Mode VC+ Ventilator Mode VC+ Ventilator Mode VC+ Ventilator Mode VC+ Ventilator Mode VC+ Ventilator Mode VC+ Ventilator Tidal Volume 450 Setting Ventilator Tidal Volume 450 Setting Ventilator Tidal Volume 450 Setting Ventilator Tidal Volume 450 Setting Ventilator Tidal Volume 450 Setting Ventilator Tidal Volume 450 Setting Ventilator Tidal Volume 450 Setting Ventilator Tidal Volume 450 Setting Ventilator Tidal Volume 450 Setting Ventilator Tidal Volume 450 Setting Ventilator Tidal Volume 450 Setting Ventilator Tidal Volume 450 Setting Ventilator Respiratory Rate 14 Setting Ventilator Respiratory Rate 14 Setting Ventilator Respiratory Rate 14 Setting Ventilator Respiratory Rate 14 Setting Ventilator Respiratory Rate 14 Setting Ventilator Respiratory Rate 14 Setting Ventilator Respiratory Rate 14 Setting Ventilator Respiratory Rate 14 Setting Ventilator Respiratory Rate 14 Setting Ventilator Respiratory Rate 14 Setting Ventilator Respiratory Rate 14 Setting Ventilator Respiratory Rate 14 Setting Actual Respiratory Rate 15 Actual Respiratory Rate 17 Actual Respiratory Rate 16 Actual Respiratory Rate 17 Actual Respiratory Rate 22 Actual Respiratory Rate 16 Actual Respiratory Rate 18 Actual Respiratory Rate 15 Actual Respiratory Rate 16 Actual Respiratory Rate 20 Actual Respiratory Rate 16 Positive End Expiratory 5 Pressure Positive End Expiratory 5 Pressure Positive End Expiratory 5 Pressure Positive End Expiratory 5 Pressure Positive End Expiratory 5 Pressure Positive End Expiratory 5 Pressure Positive End Expiratory 5 Pressure Positive End Expiratory 5 Pressure Positive End Expiratory 5 Pressure Positive End Expiratory 5 Pressure Positive End Expiratory 5 Pressure Positive End Expiratory 5 Pressure Peak Inspiratory Airway 18 Pressure Peak Inspiratory Airway 15 Pressure Peak Inspiratory Airway 21 Pressure Peak Inspiratory Airway 20 Pressure Peak Inspiratory Airway 24 Pressure Peak Inspiratory Airway 21 Pressure Peak Inspiratory Airway 24 Pressure Peak Inspiratory Airway 22 Pressure Peak Inspiratory Airway 20 Pressure Peak Inspiratory Airway 24 Pressure Peak Inspiratory Airway 22 Pressure Results - Laboratory Findings CBC and BMP: 06/05/16 03:45 06/05/16 03:45 ABG ABG pH 7.21 pH Units (7.32-7.45) L 06/05/16 08:18 ABG pCO2 69 mmHg (35-45) H 06/05/16 08:18 ABG pO2 75 mmHg (85-104) L 06/05/16 08:18 ABG O2 Saturation 91 % (95-98) L 06/05/16 08:18 PT/INR, D-dimer PT 43.3 Seconds (9.4-12.1) H* 06/04/16 03:35 Abnormal lab findings: Abnormal lab results WBC 21.8 K/mcL (4.3-11.1) H D 06/05/16 03:45 MCH 27.9 pg (28.0-33.3) L 06/05/16 03:45 MCHC 31.0 g/dL (31.6-35.5) L 06/05/16 03:45 RDW 16.7 % (11.5-14.5) H 06/05/16 03:45 Neutrophils # 19.4 K/mcL (1.6-8.9) H 06/05/16 03:45 Monocytes # 1.7 K/mcL (0.0-1.3) H 06/05/16 03:45 Nucleated RBCs/100 WBC 0.1 /100 WBC (0) H 06/05/16 03:45 PT 43.3 Seconds (9.4-12.1) H* 06/04/16 03:35 APTT 38.6 Seconds (26.0-36.0) H 06/05/16 03:45 ABG pH 7.21 pH Units (7.32-7.45) L 06/05/16 08:18 ABG pCO2 69 mmHg (35-45) H 06/05/16 08:18 ABG pO2 75 mmHg (85-104) L 06/05/16 08:18 ABG HCO3 27.6 mEQ/L (21-27) H 06/05/16 08:18 ABG Total CO2 29.7 mEq/L (20-26) H 06/05/16 08:18 ABG O2 Saturation 91 % (95-98) L 06/05/16 08:18 Sodium 128 mEq/L (136-145) L 06/05/16 03:45 Potassium 4.7 mEq/L (3.5-4.5) H 06/05/16 03:45 Chloride 94 mEq/L (98-109) L 06/05/16 03:45 BUN 35 mg/dL (7-20) H D 06/05/16 03:45 Creatinine 1.81 mg/dL (0.57-1.11) H 06/05/16 03:45 Est GFR ( Amer) 35 (> 60) L 06/05/16 03:45 Est GFR (Non-Af Amer) 29 (> 60) L 06/05/16 03:45 Glucose 231 mg/dL (70-99) H 06/05/16 03:45 POC Glucose 216 (58-89) H 06/05/16 05:57 Calcium 8.4 mg/dL (8.6-10.8) L 06/05/16 03:45 Total Bilirubin 1.5 mg/dL (0.2-1.2) H 06/05/16 03:45 Direct Bilirubin 1.0 mg/dL (0.0-0.5) H 06/05/16 03:45 B-Natriuretic Peptide 1350 pg/mL (0-100) H 06/04/16 03:35 Albumin 2.8 g/dL (3.5-5.0) L 06/05/16 03:45 Globulin 4.3 g/dL (2.4-3.5) H 06/05/16 03:45 Albumin/Globulin Ratio 0.7 (1.1-2.2) L 06/05/16 03:45 HDL Cholesterol 15 mg/dL (40-59) L 06/04/16 03:35 TSH 6.183 mcIU/mL (0.350-4.840) H 06/03/16 21:07 Urine Blood Moderate (Negative) H 06/04/16 06:30 Ur Leukocyte Esterase Trace (Negative) H 06/04/16 06:30 Urine Microscopic RBC 15-30 per hpf (0-3) H 06/04/16 06:30 Urine Microscopic WBC 5-15 per hpf (0-3) H 06/04/16 06:30 Ur Squamous Epith Cells Many per lpf (None-Few) H 06/04/16 06:30 Ur Culture Indicated? YES (NO) A 06/04/16 06:30 - Microbiology Findings Microbiology Findings: Microbiology, Last 48 Hours 06/04/16 06:30 Urine Culture - Final Urine,Clean Catch No growth. 06/04/16 09:40 Sputum Culture - Preliminary Sputum - Clinical Findings Intake & Output: Intake & Output 06/04/16 06/05/16 06/05/16 23:59 07:59 15:59 Intake Total 6367.6 / 6367.6 6776.9 / 6776.9 Output Total 1661 / 1661 2224 / 2224 225 / 225 Balance 4706.6 / 4706.6 4552.9 / 4552.9 -225 / -225 Consult Discharge Plan - Plan Referrals: Giovanny Reardon MD [Primary Care Provider] - - Attending Attestation I examined this patient and my medical decision-making was reviewed with the HEATING AND COOLING TECHNICIAN/PA/Advanced Practice Nurse/Resident Physician. I agree with the documented findings, disposition and treatment plan as described except to the extent set forth below. I spent 35min of Critical Care time with this patient. It involved decision making of high complexity to assess, manipulate, and support vital organ system failure and/or to prevent further life threatening deterioration of the patient' s condition. The time involved in the performance of separately reportable procedures was not counted toward critical care time. Patient seen and examined at bedside Labs, radiology, chart personally reviewed. All lines examined without evidence of infection. Neuropsych: intuabted and sedated. Wean benzo. cont fentanyl. daily sedation holiday. Pulm: hypoxic hypercapnic respiratory failure s/t to pulmonary edema and pneumonia. 100% Cards: cardiogenic +/- septic shock. with severe underlying Ischemic Cardiomyopathy. COnt Vasopressors (levo + Vaso) and inotrope (wean dobutamine as tolerated). Cardiologiy on board FEN-GI: NPO for now as unstable. Add bowel regimen. cont ppi prophylaxis. Renal: MINNIE with volume overload. CVVH started. Hyperkalemia improved. Mixed acidosis ID: Vanc/Levaquin, leukocytosis worsening overnight (? steroid induced) will reeculture. Heme/Onc: Cogulopathy without overt signs of bleeding. Stable H/H. Was on NOAC for afib but held currently. Endo: Stress dose hydrocortisone monitor glucose, hyperglycemia add insulin gtt Integ/MSK: skin care per ICU protocol CODE: DNRCCA, Poor Prognosis family udpdated that patient unlikely to survive. Palliative care will be consulted <Adrian Dennis - Last Filed: 06/05/16 14:20> Date of Encounter: 06/05/16 Time of Encounter: 07:09 Assessment and Plan (1) Shock Current Visit: Yes Status: Acute Cardiogenic and/or septic, patient has ischemic cardiomyopathy with EF 10-15%, ICD in place, patient is still on dobutamine, Levophed, and vasopressin IV drip , blood pressure is still around 90/60, MAP is 70, currently on vancomycin and Levaquin IV for possible hospital-acquired bacterial pneumonia, patient was recently discharged from this hospital 3 weeks ago for community acquired pneumonia, overall very poor prognosis, palliative team has been consulted, her code status has been changed to DNR CCA over the weekend, patient is also on Allison now for acute renal failure and hyperkalemia, continue to closely monitor patient's blood pressure in the ICU. (2) Acute on chronic respiratory failure with hypoxia and hypercapnia Current Visit: Yes Status: Acute Currently patient is intubated on mechanical ventilation, this morning patient was still requiring 100% FiO2, ABG was worse than yesterday, will adjust vent setting, acute on chronic respiratory failure likely multifactorial secondary to underlying bacterial pneumonia, acute exacerbation of COPD, acute on chronic systolic CHF along with acute renal failure. Continue to treat underlying causes with Allison, mechanical ventilation, IV steroid and antibiotics. (3) Ischemic cardiomyopathy Current Visit: Yes Status: Acute Previous echo on December 2015 showed left ventricular ejection fraction 15-20% with global left ventricular systolic dysfunction and severely dilated left ventricle, ICD in place, currently on dobutamine drip for possible underlying cardiogenic shock on top of two other pressors, MAP is around 70, overall very poor prognosis, palliative team has been consulted and cardio has been following. Con't to closely monitor BP in ICU. (4) Bacterial pneumonia Current Visit: Yes Status: Acute Recently discharged from this hospital on 05/15/2016 community-acquired pneumonia, she was discharged on Levaquin however it was switched to doxycycline , this time she came back with acute on chronic respiratory failure, possible underlying septic shock therefore she was started on vancomycin and Levaquin IV for possible hospital-acquired bacterial pneumonia from previous admission, continue current regimen for now, worsening leukocytosis today this could be from IV steroid however we will panculture her again. (5) Acute kidney injury Current Visit: Yes Status: Acute This could be secondary to cardiorenal with a history of ischemic cardiomyopathy and/or prerenal from septic shock, nephrology has been consulted , she was started on Allison, renal function has improved compare to yesterday, con't Allison for now, MAP is 70 this AM. (6) Acute on chronic systolic (congestive) heart failure Current Visit: Yes Status: Acute BNP was 1350, chest x-ray showed moderate bilateral pleural effusion increased from the previous study with bibasilar airspace opacities and pulmonary vascular congestion, patient is currently on Allison for acute renal failure and shock, history of ischemic cardiomyopathy. (7) Hyperkalemia Current Visit: Yes Status: Acute This is likely secondary to acute renal failure, patient was started on Allison over the weekend, potassium level improved to 4.7 today, nephrology has been following, continue to closely monitor her potassium level. (8) Atrial fibrillation with RVR Current Visit: Yes Status: Acute Tikosyn is on hold now, currently on amiodarone drip, HR has improved but still tachycardic, cardio has been following, Eliquis is on hold now for supratherapeutic INR, recheck level in AM. (9) Acute exacerbation of chronic obstructive airways disease Current Visit: Yes Status: Acute Extensive hx of smoking, this could be contributing to her acute on chronic respiratory failure picture, con't duoneb, IV steroid, oxygen support and IV abxs. (10) Hyperglycemia Current Visit: Yes Status: Acute Last A1C was 6.7 on 11/20/2013, not on any home antidiabetic meds, still hyperglycemic with high SSI, could be from IV steroid, will start her on insulin drip. (11) DVT prophylaxis Current Visit: Yes Status: Acute Supratherapeutic INR, home dosage of Eliquis is on hold now. Subjective Principal diagnosis: Shock, hyperkalemia, MINNIE, and acute on chronic respiratory failure Interval history: This is a 56 years old female with history of severe chronic systolic CHF, ischemic cardiomyopathy EF 10-15% with ICD, atrial fibrillation, COPD, cardiac cirrhosis and CAD, who presented to the ER with progressively worsening of shortness of breath, hypotension, acute kidney injury and hyperkalemia, subsequently patient was intubated and transferred to ICU. Patient seen and examined. Patient is currently on dobutamine, amiodarone, fentanyl, versed, and vasopressin IV drip, no acute events overnight, she still requires 100% FiO2 on mechanical ventilation setting, blood pressure is still around 90/60 with MAP of 70. Objective PUL Vital signs: Last Vital Signs Temp 98.1 F 06/05/16 04:00 Pulse 128 06/05/16 06:00 Resp 17 06/05/16 06:00 BP 92/59 06/05/16 06:00 Pulse Ox 89 L 06/05/16 06:00 General appearance: no acute distress, other (on sedation) Eyes: nonicteric ENT: oropharynx moist Neck: supple Effort: other (Intubated on mechanical ventilation) Auscultation: bilateral: diminished breath sounds (Diffusely), rales (Slightly bibasilar) Cardiovascular: irregular rhythm (Tachycardic) Gastrointestinal: normoactive bowel sounds, soft, non-distended Integumentary: normal Extremities: edema (Bilateral pedal pitting +2) pupils equal and round, other (Currently on IV sedation meds) Ventilator Settings Ventilator Settings: Ventilator Settings, Last 8 Hours Ventilator Mode VC+ Ventilator Mode VC+ Ventilator Mode VC+ Ventilator Mode VC+ Ventilator Mode VC+ Ventilator Mode VC+ Ventilator Mode VC+ Ventilator Mode VC+ Ventilator Mode VC+ Ventilator Mode VC+ Ventilator Mode VC+ Ventilator Tidal Volume 450 Setting Ventilator Tidal Volume 450 Setting Ventilator Tidal Volume 450 Setting Ventilator Tidal Volume 450 Setting Ventilator Tidal Volume 450 Setting Ventilator Tidal Volume 450 Setting Ventilator Tidal Volume 450 Setting Ventilator Tidal Volume 450 Setting Ventilator Tidal Volume 450 Setting Ventilator Tidal Volume 450 Setting Ventilator Tidal Volume 450 Setting Ventilator Respiratory Rate 14 Setting Ventilator Respiratory Rate 14 Setting Ventilator Respiratory Rate 14 Setting Ventilator Respiratory Rate 14 Setting Ventilator Respiratory Rate 14 Setting Ventilator Respiratory Rate 14 Setting Ventilator Respiratory Rate 14 Setting Ventilator Respiratory Rate 14 Setting Ventilator Respiratory Rate 14 Setting Ventilator Respiratory Rate 14 Setting Ventilator Respiratory Rate 14 Setting Actual Respiratory Rate 17 Actual Respiratory Rate 22 Actual Respiratory Rate 16 Actual Respiratory Rate 18 Actual Respiratory Rate 15 Actual Respiratory Rate 16 Actual Respiratory Rate 20 Actual Respiratory Rate 16 Actual Respiratory Rate 16 Actual Respiratory Rate 16 Actual Respiratory Rate 16 Positive End Expiratory 5 Pressure Positive End Expiratory 5 Pressure Positive End Expiratory 5 Pressure Positive End Expiratory 5 Pressure Positive End Expiratory 5 Pressure Positive End Expiratory 5 Pressure Positive End Expiratory 5 Pressure Positive End Expiratory 5 Pressure Positive End Expiratory 5 Pressure Positive End Expiratory 5 Pressure Positive End Expiratory 5 Pressure Peak Inspiratory Airway 20 Pressure Peak Inspiratory Airway 24 Pressure Peak Inspiratory Airway 21 Pressure Peak Inspiratory Airway 24 Pressure Peak Inspiratory Airway 22 Pressure Peak Inspiratory Airway 20 Pressure Peak Inspiratory Airway 24 Pressure Peak Inspiratory Airway 22 Pressure Peak Inspiratory Airway 22 Pressure Peak Inspiratory Airway 23 Pressure Peak Inspiratory Airway 24 Pressure Results - Laboratory Findings CBC and BMP: 03/27/17 03:45 06/05/16 03:45 ABG ABG pH 7.25 pH Units (7.32-7.45) L 06/04/16 14:00 ABG pCO2 66 mmHg (35-45) H 06/04/16 14:00 ABG pO2 63 mmHg (85-104) L 06/04/16 14:00 ABG O2 Saturation 88 % (95-98) L 06/04/16 14:00 PT/INR, D-dimer PT 43.3 Seconds (9.4-12.1) H* 06/04/16 03:35 Abnormal lab findings: Abnormal lab results WBC 21.8 K/mcL (4.3-11.1) H D 06/05/16 03:45 MCH 27.9 pg (28.0-33.3) L 06/05/16 03:45 MCHC 31.0 g/dL (31.6-35.5) L 06/05/16 03:45 RDW 16.7 % (11.5-14.5) H 06/05/16 03:45 Neutrophils # 19.4 K/mcL (1.6-8.9) H 06/05/16 03:45 Monocytes # 1.7 K/mcL (0.0-1.3) H 06/05/16 03:45 Nucleated RBCs/100 WBC 0.1 /100 WBC (0) H 06/05/16 03:45 PT 43.3 Seconds (9.4-12.1) H* 06/04/16 03:35 APTT 38.6 Seconds (26.0-36.0) H 06/05/16 03:45 ABG pH 7.25 pH Units (7.32-7.45) L 06/04/16 14:00 ABG pCO2 66 mmHg (35-45) H 06/04/16 14:00 ABG pO2 63 mmHg (85-104) L 06/04/16 14:00 ABG HCO3 28.9 mEQ/L (21-27) H 06/04/16 14:00 ABG Total CO2 30.9 mEq/L (20-26) H 06/04/16 14:00 ABG O2 Saturation 88 % (95-98) L 06/04/16 14:00 Sodium 128 mEq/L (136-145) L 06/05/16 03:45 Potassium 4.7 mEq/L (3.5-4.5) H 06/05/16 03:45 Chloride 94 mEq/L (98-109) L 06/05/16 03:45 BUN 35 mg/dL (7-20) H D 06/05/16 03:45 Creatinine 1.81 mg/dL (0.57-1.11) H 06/05/16 03:45 Est GFR ( Amer) 35 (> 60) L 06/05/16 03:45 Est GFR (Non-Af Amer) 29 (> 60) L 06/05/16 03:45 Glucose 231 mg/dL (70-99) H 06/05/16 03:45 POC Glucose 216 (58-89) H 06/05/16 05:57 Calcium 8.4 mg/dL (8.6-10.8) L 06/05/16 03:45 Total Bilirubin 1.5 mg/dL (0.2-1.2) H 06/05/16 03:45 Direct Bilirubin 1.0 mg/dL (0.0-0.5) H 06/05/16 03:45 B-Natriuretic Peptide 1350 pg/mL (0-100) H 06/04/16 03:35 Albumin 2.8 g/dL (3.5-5.0) L 06/05/16 03:45 Globulin 4.3 g/dL (2.4-3.5) H 06/05/16 03:45 Albumin/Globulin Ratio 0.7 (1.1-2.2) L 06/05/16 03:45 HDL Cholesterol 15 mg/dL (40-59) L 06/04/16 03:35 TSH 6.183 mcIU/mL (0.350-4.840) H 06/03/16 21:07 Urine Blood Moderate (Negative) H 06/04/16 06:30 Ur Leukocyte Esterase Trace (Negative) H 06/04/16 06:30 Urine Microscopic RBC 15-30 per hpf (0-3) H 06/04/16 06:30 Urine Microscopic WBC 5-15 per hpf (0-3) H 06/04/16 06:30 Ur Squamous Epith Cells Many per lpf (None-Few) H 06/04/16 06:30 Ur Culture Indicated? YES (NO) A 06/04/16 06:30 - Microbiology Findings Microbiology Findings: Microbiology, Last 48 Hours 06/04/16 06:30 Urine Culture - Final Urine,Clean Catch No growth. 06/04/16 09:40 Sputum Culture - Preliminary Sputum - Clinical Findings Intake & Output: Intake & Output 06/04/16 06/04/16 06/05/16 15:59 23:59 07:59 Intake Total 2672.3 / 2672.3 6367.6 / 6367.6 6758.9 / 6758.9 Output Total 710 / 710 1661 / 1661 2061 / 2061 Balance 1962.3 / 1962.3 4706.6 / 4706.6 4697.9 / 4697.9
[2016-06-05 08:38] LABS: ABG HCO3 27.6 mEQ/L (21-27); ABG Oxygen Saturation 91 % (95-98); ABG PCO2 69 mmHg (35-45); ABG PH 7.21 pH Units (7.32-7.45); ABG PO2 75 mmHg (85-104); ABG TCO2 29.7 mEq/L (20-26)
[2016-06-05] MEDS: Chlorhexidine Rinse 15 ML MOUTHWASH MM SCH ×2 (08:38→19:49)
[2016-06-05 08:41] LABS: Blood Gas FiO2 100 %; Blood Gas Liter Flow 450 L/MIN
[2016-06-05] MEDS ORDERED: *HR* Dextrose 50 % in Water (Syg) 50 ML SYRINGE IVP PRN (10:39)
[2016-06-05] MEDS: Insulin Human Regular 100 UNIT in 0.9 % Sodium Chloride 100 ML IVC SCH (11:15)
--- NOTE | 2016-06-05 11:49 | Nephrology Progress Note ---
Date of Encounter: 06/05/16 Time of Encounter: 11:30 - Assessment and Plan (1) MINNIE (acute kidney injury) Current Visit: No Status: Acute A/P- Respiratory failure, cardiogenic shock r/t severe systolic dysfunction. Sedated/intubated on multiple pressors. MINNIE on known mild CKD in setting of chronic NSAID use with recent baseline creat 1.2. Today urine output 15cc. Will continue Allison at current settings. Palliative care on board. Subjective Interval history: Intubated on vent, FIO2 90%, multiple pressors Objective - Vital Signs Vital signs: Vital Signs Temp Pulse Resp BP Pulse Ox 06/05/16 11:00 97.6 F 103 15 93/60 92 L 06/05/16 10:34 14 91 L 06/05/16 10:00 111 17 97/60 91 L 06/05/16 09:00 105 16 94/56 89 L 06/05/16 07:53 97.8 F 129 15 94/54 90 L 06/05/16 07:49 97.8 F 112 15 94/56 91 L 06/05/16 07:45 17 89 L 06/05/16 07:00 125 15 85/54 89 L 06/05/16 06:00 128 17 92/59 89 L 06/05/16 05:30 22 94/58 89 L 06/05/16 05:00 116 15 101/57 88 L 06/05/16 04:00 98.1 F 118 19 90/60 88 L 06/05/16 03:37 15 89/56 89 L 06/05/16 03:00 117 15 87/56 88 L 06/05/16 02:00 120 21 95/56 89 L 06/05/16 01:33 16 83/55 88 L 06/05/16 01:00 128 15 95/55 88 L 06/05/16 00:00 97.9 F 120 16 91/58 88 L 06/04/16 23:35 16 97/53 87 L 06/04/16 23:00 121 15 91/57 87 L 06/04/16 22:00 118 16 97/55 88 L 06/04/16 21:27 17 92/55 88 L 06/04/16 21:00 129 15 91/54 87 L 06/04/16 20:00 97.8 F 112 15 90/56 90 L 06/04/16 19:58 15 86/49 88 L 06/04/16 19:00 120 16 93/54 88 L 06/04/16 18:00 112 15 90/58 88 L 06/04/16 17:10 14 95/56 88 L 06/04/16 17:00 97.8 F 114 14 99/55 88 L 06/04/16 16:52 111 06/04/16 16:00 111 14 102/59 90 L 06/04/16 15:45 17 85/58 88 L 06/04/16 15:00 112 14 93/57 89 L 06/04/16 14:00 106 15 96/53 89 L 06/04/16 13:00 112 17 99/55 90 L 06/04/16 12:00 112 17 100/58 90 L Intake and Output 06/04/16 06/05/16 06/05/16 23:59 07:59 15:59 Intake Total 6367.6 / 6367.6 6776.9 / 6776.9 606.8 / 606.8 Output Total 1661 / 1661 2224 / 2224 944 / 944 Balance 4706.6 / 4706.6 4552.9 / 4552.9 -337.2 / -337.2 Intake: IV Fluids 6367.6 / 6367.6 6776.9 / 6776.9 606.8 / 606.8 PrismaSATE BGK 4/2.5 5, 5000 / 5000 5000 / 5000 000 ML @ 1000 mls/hr CRRT CONT CARLENE Rx#:[id number] Amiodarone 360mg/200mL 175 / 175 107.6 / 107.6 Drip Premix 360 mg In 200 ml @ 0.5 MG/MIN 16.667 mls/hr IVC CONT CARLENE Rx#: [id number] DOBUTamine 250 MG/250 ML 600 / 600 500.0 / 500.0 290 / 290 D5W 250 mg In 250 ml @ 2. 5 MCG/KG/MIN 13.472 mls/ hr IVC .[id number] CARLENE Rx#: [id number] FentaNYL (PF) 1,000 MCG 40 / 40 60.0 / 60.0 7.5 / 7.5 In 0.9 % Sodium Chloride 80 ML @ 25 MCG/HR 2.5 mls /hr IVC CONT CARLENE Rx#: [id number] Versed 50 MG In 0.9 % 140 / 140 111.1 / 111.1 12.3 / 12.3 Sodium Chloride 90 ML @ 0 .2 MG/HR 0.4 mls/hr IVC CONT CARLENE Rx#:[id number] Levophed 4 MG In Dextrose 345.6 / 345.6 5% 250 ML @ 5 MCG/MIN 18 .75 mls/hr IVC CONT CARLENE Rx#:[id number] Levophed 8 MG In Dextrose 702.0 / 702.0 297 / 297 5% 500 ML @ 5 MCG/MIN 19 .05 mls/hr IVC CONT CARLENE Rx#:[id number] Vasostrict 40 UNIT In 50 / 50 46.2 / 46.2 Dextrose 5% 100 ML @ 0.03 UNIT/MIN 4.59 mls/hr IVC .[id number] CARLENE Rx#: [id number] Vancocin 1,250 MG In 250 / 250 Dextrose 5% 250 ML @ 166. 667 mls/hr IVPB ONCE ONE Rx#:[id number] Output: Urine Allison 1266 / 1266 1968 / 1968 904 / 904 Catheter 395 / 395 205 / 205 5 / 5 Gastric Drainage Other: Blood Glucose* 193 205 - General Appearance General appearance: Present: chronically ill EENT: Present: mucous membranes moist Neck: Present: no JVD Respiratory: Present: clear Cardiology: Present: edema, irregular rhythm Additional Comments: generalized Gastrointestinal: Present: hypoactive bowel sounds Integumentary: Present: warm and dry - Lab 06/05/16 03:45 06/05/16 03:45 Most recent lab results ABG pH 7.21 pH Units (7.32-7.45) L 06/05/16 08:18 ABG pCO2 69 mmHg (35-45) H 06/05/16 08:18 ABG pO2 75 mmHg (85-104) L 06/05/16 08:18 ABG HCO3 27.6 mEQ/L (21-27) H 06/05/16 08:18 ABG O2 Saturation 91 % (95-98) L 06/05/16 08:18 Calcium 8.4 mg/dL (8.6-10.8) L 06/05/16 03:45 Phosphorus 3.8 mg/dL (2.3-4.7) 06/05/16 03:45 Magnesium 2.0 mg/dL (1.6-2.6) 06/05/16 03:45 Consult Discharge Plan - Plan Referrals: Giovanny Reardon MD [Primary Care Provider] -
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
[2016-06-05] MEDS: Phenylephrine 20 MG in D5% in Water 250 ML IVC SCH (14:33)
[2016-06-05 14:38] LABS: ABG Base Excess -4.7 mEq/L (-2.0 to 3.0); ABG Oxygen Saturation 96 % (95-98); ABG PCO2 67 mmHg (35-45); ABG PO2 99 mmHg (85-104); ABG TCO2 27.1 mEq/L (20-26)
[2016-06-05 14:41] LABS: ABG PH 7.18 pH Units (7.32-7.45)
[2016-06-05 14:42] LABS: Blood Gas FiO2 90 %; Blood Gas PEEP 8 cm H2O
[2016-06-05 15:25] LABS: Adenovirus Not Detected (Not Detect); Bordetella Pertussis Not Detected (Not Detect); Chlamydophila pneumoniae Not Detected (Not Detect); Coronavirus 229E Not Detected (Not Detect); Coronavirus HKU1 Not Detected (Not Detect); Coronavirus NL63 Not Detected (Not Detect); Coronavirus OC43 Not Detected (Not Detect); Human Metapneumovirus Not Detected (Not Detect); Human Rhinovirus/Enterovirus Not Detected (Not Detect); Influenza A Subtype 2009 H1 Not Detected (Not Detect); Influenza A Untypeable Not Detected (Not Detect); Influenza B Not Detected (Not Detect); Mycoplasma pneumoniae Not Detected (Not Detect); Parainfluenza Virus 1 Not Detected (Not Detect); Parainfluenza Virus 2 Not Detected (Not Detect); Parainfluenza Virus 3 Not Detected (Not Detect); Parainfluenza Virus 4 Not Detected (Not Detect); Respiratory Syncytial Virus Not Detected (Not Detect)
[2016-06-05 16:14] LABS: ABG Base Excess -4.6 mEq/L (-2.0 to 3.0); ABG HCO3 23.6 mEQ/L (21-27); ABG Oxygen Saturation 94 % (95-98); ABG PCO2 55 mmHg (35-45); ABG PH 7.24 pH Units (7.32-7.45); ABG PO2 81 mmHg (85-104); ABG TCO2 25.3 mEq/L (20-26); Blood Gas FiO2 80 %
--- NOTE | 2016-06-05 17:40 | Cardiology Progress Note ---
Date of Encounter: 06/05/16 Time of Encounter: 10:00 Assessment and Plan (1) Heart failure, systolic and diastolic, acute on chronic Current Visit: No Status: Acute No change in UOP. Still undergoing UF for volume removal. Recommend continuing dobutamine. (2) Atrial fibrillation Current Visit: No Status: Chronic Presently on amiodarone drip with reasonable control of heart rates. Qualifiers: Atrial fibrillation type: paroxysmal Qualified Code(s): I48.0 - Paroxysmal atrial fibrillation (3) Ischemic cardiomyopathy Current Visit: No Status: Chronic Patient with history of ischemic cardiomyopathy. She was on plavix as an outpatient with allergy to aspirin. However, plavix is not on her medication list for unclear reasons. Will need to discuss with primary team. Discussion w patient/family: Family was not present at bedside. The patient remains in guarded condition. Subjective Principal diagnosis: Shock, hyperkalemia, MINNIE, and acute on chronic respiratory failure Interval history: No new overnight events. Patient remains intubated and in guarded condition. Objective Vital signs reviewed. Vital Signs, Last 4 Hours Temp Pulse Resp BP Pulse Ox 06/05/16 16:21 24 94 L 06/05/16 16:00 97.7 F 96 24 99/60 94 L 06/05/16 15:47 98 24 103/61 94 L 06/05/16 15:00 101 24 87/55 95 06/05/16 14:15 18 96 06/05/16 14:00 113 18 93/54 96 General: Other (Intubated, sedated) HEENT: Other (ETT in place) Neck: Other (difficult to appreciate JVP) Cardiac: Other (irregularly irregular) Lungs: Other (decreased breath sounds bilaterally) Neuro: Other (intubated, sedated) Abdomen: Soft, Other (mildly distended) Extremities: Other (2+ bilateral pitting edema) Results 06/05/16 03:45 06/05/16 03:45 Lab Results 06/05/16 06/05/16 06/05/16 03:45 03:45 03:45 WBC 21.8 H D Hgb 13.8 Hct 44.5 Plt Count 167 APTT 38.6 H Sodium 128 L Potassium 4.7 H Chloride 94 L Carbon Dioxide 27 BUN 35 H D Creatinine 1.81 H Glucose 231 H Calcium 8.4 L Magnesium 2.0 Total Bilirubin 1.5 H AST 28 ALT 13 Alkaline Phosphatase 112 - Imaging and Cardiology Chest Xray: report reviewed - EKG Interpretation EKG results cardiology: other (24h telemetry; no concerning dysrhythmia) Consult Discharge Plan - Plan Referrals: Giovanny Reardon MD [Primary Care Provider] -
[2016-06-05 17:58] LABS: Calcium 8.6 mg/dL (8.6-10.8); Potassium 4.2 mEq/L (3.5-4.5)
[2016-06-05 20:01] LABS: ABG Base Excess -1.4 mEq/L (-2.0 to 3.0); ABG HCO3 26.4 mEQ/L (21-27); ABG Oxygen Saturation 88 % (95-98); ABG PCO2 55 mmHg (35-45); ABG PH 7.29 pH Units (7.32-7.45); ABG PO2 61 mmHg (85-104); ABG TCO2 28.1 mEq/L (20-26); Blood Gas FiO2 70 %
[2016-06-06] MEDS: Hydrocortisone Sodium Succ 100 MG/2 ML VIAL IVP SCH ×3 (01:06→15:03)
[2016-06-06] MEDS: Lacri-Lube 3.5 GM TUBE BOTH EYES SCH ×6 (01:07→20:09)
[2016-06-06] MEDS: Amiodarone Premix 360 MG/200 ML BAG IVC SCH ×2 (02:08→16:21)
[2016-06-06] MEDS: Norepinephrine 8 MG in D5% in Water 500 ML IVC SCH ×3 (02:47→17:43)
[2016-06-06 04:07] LABS: Basophils % 0.1 %; Hematocrit 44.2 % (35.3-44.9); Hemoglobin 14.1 g/dL (11.5-15.4); Immature Granulocytes % 0.7 % (0-4); Lymphocytes # 0.4 K/mcL (0.6-4.6); Lymphocytes % 2.2 %; Mean Corpuscular HGB Conc 31.9 g/dL (31.6-35.5); Mean Corpuscular Hemoglobin 27.4 pg (28.0-33.3); Mean Platelet Volume 12.6 fL (9.4-12.4); Monocytes # 1.7 K/mcL (0.0-1.3); Monocytes % 8.7 %; Neutrophils # 17.3 K/mcL (1.6-8.9); Nucleated Red Blood Cells 0.3 /100 WBC (0); Platelet Count 179 K/mcL (140-400); Red Blood Count 5.14 M/mcL (3.82-4.97); Red Cell Distribution Width 16.4 % (11.5-14.5); Segmented Neutrophils % 88.3 %
[2016-06-06] MEDS: FentaNYL (PF) 1,000 MCG in 0.9 % Sodium Chloride 80 ML IVC SCH (04:08)
[2016-06-06] MEDS: Vasopressin 40 UNIT in D5% in Water 100 ML IVC SCH (04:09)
[2016-06-06 04:12] LABS: INR 1.9; Prothrombin Time 20.5 Seconds (9.4-12.1)
[2016-06-06 04:19] LABS: Calcium 8.8 mg/dL (8.6-10.8); Potassium 4.9 mEq/L (3.5-4.5)
[2016-06-06] MEDS: Ipratropium/Albuterol Neb 3 ML IH SCH ×6 (04:35→19:29)
[2016-06-06 04:40] LABS: ABG HCO3 25.4 mEQ/L (21-27); ABG Oxygen Saturation 95 % (95-98); ABG PCO2 47 mmHg (35-45); ABG PH 7.34 pH Units (7.32-7.45); ABG PO2 78 mmHg (85-104); ABG TCO2 26.8 mEq/L (20-26); Blood Gas FiO2 75 %
[2016-06-06] MEDS: Phenylephrine 20 MG in D5% in Water 250 ML IVC SCH (04:45)
[2016-06-06] MEDS: Famotidine 20 MG/2 ML VIAL IVP SCH (05:07)
[2016-06-06] MEDS: PrismaSATE BGK 4/2.5 5,000 ML CRRT SCH ×5 (05:08→20:49)
--- NOTE | 2016-06-06 06:55 | Pulmonology Progress Note ---
<Jamal Katz W - Last Filed: 06/06/16 10:24> Objective PUL Vital signs: Last Vital Signs Temp 98.5 F 06/06/16 04:32 Pulse 125 06/06/16 07:00 Resp 24 06/06/16 07:00 BP 98/58 06/06/16 07:00 Pulse Ox 92 L 06/06/16 07:00 Ventilator Settings Ventilator Settings: Ventilator Settings, Last 8 Hours Ventilator Mode VC+ Ventilator Mode VC+ Ventilator Mode VC+ Ventilator Mode VC+ Ventilator Mode VC+ Ventilator Mode VC+ Ventilator Mode VC+ Ventilator Mode VC+ Ventilator Mode VC+ Ventilator Mode VC+ Ventilator Mode VC+ Ventilator Tidal Volume 450 Setting Ventilator Tidal Volume 450 Setting Ventilator Tidal Volume 450 Setting Ventilator Tidal Volume 450 Setting Ventilator Tidal Volume 450 Setting Ventilator Tidal Volume 450 Setting Ventilator Tidal Volume 450 Setting Ventilator Tidal Volume 450 Setting Ventilator Tidal Volume 450 Setting Ventilator Tidal Volume 450 Setting Ventilator Tidal Volume 450 Setting Ventilator Respiratory Rate 24 Setting Ventilator Respiratory Rate 24 Setting Ventilator Respiratory Rate 24 Setting Ventilator Respiratory Rate 24 Setting Ventilator Respiratory Rate 24 Setting Ventilator Respiratory Rate 24 Setting Ventilator Respiratory Rate 24 Setting Ventilator Respiratory Rate 24 Setting Ventilator Respiratory Rate 24 Setting Ventilator Respiratory Rate 24 Setting Ventilator Respiratory Rate 24 Setting Actual Respiratory Rate 26 Actual Respiratory Rate 24 Actual Respiratory Rate 28 Positive End Expiratory 5 Pressure Positive End Expiratory 5 Pressure Positive End Expiratory 5 Pressure Positive End Expiratory 5 Pressure Positive End Expiratory 5 Pressure Positive End Expiratory 5 Pressure Positive End Expiratory 5 Pressure Positive End Expiratory 5 Pressure Positive End Expiratory 5 Pressure Positive End Expiratory 5 Pressure Positive End Expiratory 5 Pressure Peak Inspiratory Airway 32 Pressure Peak Inspiratory Airway 32 Pressure Peak Inspiratory Airway 30 Pressure Peak Inspiratory Airway 32 Pressure Results - Laboratory Findings CBC and BMP: 06/06/16 04:00 06/06/16 04:00 ABG ABG pH 7.34 pH Units (7.32-7.45) 06/06/16 04:29 ABG pCO2 47 mmHg (35-45) H 06/06/16 04:29 ABG pO2 78 mmHg (85-104) L 06/06/16 04:29 ABG O2 Saturation 95 % (95-98) 06/06/16 04:29 PT/INR, D-dimer PT 20.5 Seconds (9.4-12.1) H D 06/06/16 04:00 Abnormal lab findings: Abnormal lab results WBC 19.6 K/mcL (4.3-11.1) H 06/06/16 04:00 RBC 5.14 M/mcL (3.82-4.97) H 06/06/16 04:00 MCH 27.4 pg (28.0-33.3) L 06/06/16 04:00 RDW 16.4 % (11.5-14.5) H 06/06/16 04:00 MPV 12.6 fL (9.4-12.4) H 06/06/16 04:00 Neutrophils # 17.3 K/mcL (1.6-8.9) H 06/06/16 04:00 Lymphocytes # 0.4 K/mcL (0.6-4.6) L 06/06/16 04:00 Monocytes # 1.7 K/mcL (0.0-1.3) H 06/06/16 04:00 Nucleated RBCs/100 WBC 0.3 /100 WBC (0) H 06/06/16 04:00 PT 20.5 Seconds (9.4-12.1) H D 06/06/16 04:00 APTT 38.6 Seconds (26.0-36.0) H 06/05/16 03:45 ABG pCO2 47 mmHg (35-45) H 06/06/16 04:29 ABG pO2 78 mmHg (85-104) L 06/06/16 04:29 ABG Total CO2 26.8 mEq/L (20-26) H 06/06/16 04:29 Sodium 124 mEq/L (136-145) L 06/06/16 04:00 Potassium 4.9 mEq/L (3.5-4.5) H 06/06/16 04:00 Chloride 94 mEq/L (98-109) L 06/06/16 04:00 BUN 32 mg/dL (7-20) H 06/06/16 04:00 Creatinine 1.93 mg/dL (0.57-1.11) H 06/06/16 04:00 Est GFR ( Amer) 32 (> 60) L 06/06/16 04:00 Est GFR (Non-Af Amer) 27 (> 60) L 06/06/16 04:00 Glucose 168 mg/dL (70-99) H 06/06/16 04:00 POC Glucose 135 (58-89) H 06/06/16 08:15 Calculated Osmolality 269 (280-300) L 06/06/16 04:00 Total Bilirubin 1.5 mg/dL (0.2-1.2) H 06/05/16 03:45 Direct Bilirubin 1.0 mg/dL (0.0-0.5) H 06/05/16 03:45 B-Natriuretic Peptide 1350 pg/mL (0-100) H 06/04/16 03:35 Albumin 2.8 g/dL (3.5-5.0) L 06/05/16 03:45 Globulin 4.3 g/dL (2.4-3.5) H 06/05/16 03:45 Albumin/Globulin Ratio 0.7 (1.1-2.2) L 06/05/16 03:45 HDL Cholesterol 15 mg/dL (40-59) L 06/04/16 03:35 TSH 6.183 mcIU/mL (0.350-4.840) H 06/03/16 21:07 Urine Blood Moderate (Negative) H 06/04/16 06:30 Ur Leukocyte Esterase Trace (Negative) H 06/04/16 06:30 Urine Microscopic RBC 15-30 per hpf (0-3) H 06/04/16 06:30 Urine Microscopic WBC 5-15 per hpf (0-3) H 06/04/16 06:30 Ur Squamous Epith Cells Many per lpf (None-Few) H 06/04/16 06:30 Ur Culture Indicated? YES (NO) A 06/04/16 06:30 - Microbiology Findings Microbiology Findings: Microbiology, Last 48 Hours 06/04/16 08:35 Blood Culture - Preliminary Peripheral Venipuncture No growth. 06/05/16 13:30 Urine Culture - Final Urine,Catheterized No growth. 06/04/16 09:40 Sputum Culture - Final Sputum 06/04/16 06:30 Urine Culture - Final Urine,Clean Catch No growth. - Clinical Findings Intake & Output: Intake & Output 06/05/16 06/06/16 06/06/16 23:59 07:59 15:59 Intake Total 707.4 / 707.4 1849.5 / 1849.5 2.4 / 2.4 Output Total 1685 / 1685 1423 / 1423 Balance -977.6 / -977.6 426.5 / 426.5 2.4 / 2.4 Weight 92.76 kg Consult Discharge Plan - Plan Referrals: Giovanny Reardon MD [Primary Care Provider] - - Attending Attestation I examined this patient and my medical decision-making was reviewed with the FLOUR INSPECTOR/PA/Advanced Practice Nurse/Resident Physician. I agree with the documented findings, disposition and treatment plan as described except to the extent set forth below. I spent 35min of Critical Care time with this patient. It involved decision making of high complexity to assess, manipulate, and support vital organ system failure and/or to prevent further life threatening deterioration of the patient' s condition. The time involved in the performance of separately reportable procedures was not counted toward critical care time. Patient seen and examined at bedside Labs, radiology, chart personally reviewed. All lines examined without evidence of infection. Neuropsych: intuabted and sedated. Wean benzo. cont fentanyl. daily sedation holiday. able to respond to voice (minimally) Pulm: hypoxic hypercapnic respiratory failure s/t to pulmonary edema and pneumonia.able to wean FIO2 to 75%. Increase PEEP to 8 today. wean FIO2 for goal of 60. Cuff leak today ETT exchanged. Overall improvement in V/Q mismatch with resultant improvment in ventilation and acidosis. Cards: cardiogenic +/- septic shock. with severe underlying Ischemic Cardiomyopathy. COnt Vasopressors (levo + Vaso) and inotrope (wean dobutamine as tolerated). Cardiologiy on board. Holding Plavix and LTA for Afib for bleeding risk. COnt amiodarone. FEN-GI: NPO for now as unstable. Add bowel regimen. cont ppi prophylaxis. Suspect hypervolemic hyponatremia. . Renal: MINNIE with volume overload. CONT CVVH with removal as tolerated. Hyperkalemia improved. Mixed acidosis improving ID: Vanc/Levaquin, leukocytosis imroved overnight (? steroid induced) cultures pending (viral panel negative) Heme/Onc: Cogulopathy without mild hmturia. VitK 5mg x 3 doses given. Stable H/ H. Was on NOAC for afib but held currently. Endo: Stress dose hydrocortisone monitor glucose, hyperglycemia add insulin gtt Integ/MSK: skin care per ICU protocol CODE: DNRCCA, Poor Prognosis family udpdated that patient unlikely to survive. Palliative care will be consulted <Adrian Dennis - Last Filed: 06/06/16 14:21> Date of Encounter: 06/06/16 Time of Encounter: 06:55 Assessment and Plan (1) Shock Current Visit: Yes Status: Acute Cardiogenic and/or septic, patient has ischemic cardiomyopathy with EF 10-15%, ICD in place, patient is still on dobutamine, Levophed (titrated down overnight) , and vasopressin IV drip, blood pressure is still around 90/60, MAP is 70, currently on vancomycin and Levaquin IV for possible hospital-acquired bacterial pneumonia, patient was recently discharged from this hospital 3 weeks ago for community acquired pneumonia, overall very poor prognosis, palliative team has been consulted, her code status has been changed to DNR CCA over the weekend, patient is also on Allison now for acute renal failure and hyperkalemia , continue to closely monitor patient's blood pressure in the ICU. (2) Acute on chronic respiratory failure with hypoxia and hypercapnia Current Visit: Yes Status: Acute Repeated ABG showed improvement compare to yesterday, will try to decrease FIO2 to 60% today and increase PEEP to 8, acute on chronic respiratory failure likely multifactorial secondary to underlying bacterial pneumonia, acute exacerbation of COPD, acute on chronic systolic CHF along with acute renal failure. Continue to treat underlying causes with Allison, mechanical ventilation, IV steroid and antibiotics. (3) Ischemic cardiomyopathy Current Visit: Yes Status: Acute Previous echo on December 2015 showed left ventricular ejection fraction 15-20% with global left ventricular systolic dysfunction and severely dilated left ventricle, ICD in place, currently on dobutamine drip for possible underlying cardiogenic shock on top of two other pressors, MAP is around 70, overall very poor prognosis, palliative team has been consulted and cardio has been following. Con't to closely monitor BP in ICU. (4) Bacterial pneumonia Current Visit: Yes Status: Acute Recently discharged from this hospital on 05/15/2016 community-acquired pneumonia, she was discharged on Levaquin however it was switched to doxycycline , this time she came back with acute on chronic respiratory failure, possible underlying septic shock therefore she was started on vancomycin and Levaquin IV for possible hospital-acquired bacterial pneumonia from previous admission, continue current regimen for now, leukocytosis improved. (5) Acute kidney injury Current Visit: Yes Status: Acute This could be secondary to cardiorenal with a history of ischemic cardiomyopathy and/or prerenal from septic shock, nephrology has been consulted , con't Allison. (6) Acute on chronic systolic (congestive) heart failure Current Visit: Yes Status: Acute BNP was 1350, chest x-ray showed moderate bilateral pleural effusion increased from the previous study with bibasilar airspace opacities and pulmonary vascular congestion, patient is currently on Allison for acute renal failure and shock, history of ischemic cardiomyopathy. (7) Hyperkalemia Current Visit: Yes Status: Acute This is likely secondary to acute renal failure, patient was started on Allison over the weekend, potassium level improved to 4.9, nephrology has been following , continue to closely monitor her potassium level. (8) Atrial fibrillation with RVR Current Visit: Yes Status: Acute Tikosyn is on hold now, currently on amiodarone drip, HR has improved but still tachycardic, cardio has been following, Eliquis is on hold now for supratherapeutic INR, vit K IV x3 for hematuria this AM, INR is down to 1.9. (9) Acute exacerbation of chronic obstructive airways disease Current Visit: Yes Status: Acute Extensive hx of smoking, this could be contributing to her acute on chronic respiratory failure picture, con't duoneb, IV steroid, oxygen support and IV abxs. (10) Hyperglycemia Current Visit: Yes Status: Acute Last A1C was 6.7 on 11/20/2013, not on any home antidiabetic meds, still hyperglycemic with high SSI, could be from IV steroid, she was started on insulin drip. (11) DVT prophylaxis Current Visit: Yes Status: Acute IPC. Subjective Principal diagnosis: Shock, hyperkalemia, MINNIE, and acute on chronic respiratory failure Interval history: This is a 56 years old female with history of severe chronic systolic CHF, ischemic cardiomyopathy EF 10-15% with ICD, atrial fibrillation, COPD, cardiac cirrhosis and CAD, who presented to the ER with progressively worsening of shortness of breath, hypotension, acute kidney injury and hyperkalemia, subsequently patient was intubated and transferred to ICU. Patient seen and examined. Patient is currently on dobutamine, amiodarone, fentanyl, versed, and vasopressin IV drip, no acute events overnight, now FIO2 is down to 75%, this AM bloody urine was noted, repeated ABG showed improvement compare to yesterday. Objective PUL Vital signs: Last Vital Signs Temp 98.5 F 06/06/16 04:32 Pulse 122 06/06/16 06:00 Resp 27 06/06/16 06:00 BP 100/62 06/06/16 06:00 Pulse Ox 92 L 06/06/16 06:00 General appearance: no acute distress, other (On IV sedation) Eyes: nonicteric ENT: oropharynx moist Neck: supple Effort: normal Auscultation: bilateral: diminished breath sounds (upper area ) Cardiovascular: other (regular rhythm but tachycardic) Gastrointestinal: absent bowel sounds, soft, non-distended Integumentary: normal Extremities: edema (+2 pitting pedal edema b/l) Musculoskeletal: no deformities pupils equal and round, other (on IV sedation) Ventilator Settings Ventilator Settings: Ventilator Settings, Last 8 Hours Ventilator Mode VC+ Ventilator Mode VC+ Ventilator Mode VC+ Ventilator Mode VC+ Ventilator Mode VC+ Ventilator Mode VC+ Ventilator Mode VC+ Ventilator Mode VC+ Ventilator Mode VC+ Ventilator Mode VC+ Ventilator Mode VC+ Ventilator Mode VC+ Ventilator Mode VC+ Ventilator Tidal Volume 450 Setting Ventilator Tidal Volume 450 Setting Ventilator Tidal Volume 450 Setting Ventilator Tidal Volume 450 Setting Ventilator Tidal Volume 450 Setting Ventilator Tidal Volume 450 Setting Ventilator Tidal Volume 450 Setting Ventilator Tidal Volume 450 Setting Ventilator Tidal Volume 450 Setting Ventilator Tidal Volume 450 Setting Ventilator Tidal Volume 450 Setting Ventilator Tidal Volume 450 Setting Ventilator Tidal Volume 450 Setting Ventilator Respiratory Rate 24 Setting Ventilator Respiratory Rate 24 Setting Ventilator Respiratory Rate 24 Setting Ventilator Respiratory Rate 24 Setting Ventilator Respiratory Rate 24 Setting Ventilator Respiratory Rate 24 Setting Ventilator Respiratory Rate 24 Setting Ventilator Respiratory Rate 24 Setting Ventilator Respiratory Rate 24 Setting Ventilator Respiratory Rate 24 Setting Ventilator Respiratory Rate 24 Setting Ventilator Respiratory Rate 24 Setting Ventilator Respiratory Rate 24 Setting Actual Respiratory Rate 26 Actual Respiratory Rate 24 Actual Respiratory Rate 28 Actual Respiratory Rate 24 Positive End Expiratory 5 Pressure Positive End Expiratory 5 Pressure Positive End Expiratory 5 Pressure Positive End Expiratory 5 Pressure Positive End Expiratory 5 Pressure Positive End Expiratory 5 Pressure Positive End Expiratory 5 Pressure Positive End Expiratory 5 Pressure Positive End Expiratory 5 Pressure Positive End Expiratory 5 Pressure Positive End Expiratory 5 Pressure Positive End Expiratory 5 Pressure Positive End Expiratory 5 Pressure Peak Inspiratory Airway 32 Pressure Peak Inspiratory Airway 32 Pressure Peak Inspiratory Airway 30 Pressure Peak Inspiratory Airway 32 Pressure Peak Inspiratory Airway 28 Pressure Results - Laboratory Findings CBC and BMP: 06/06/16 11:53 06/06/16 04:00 ABG ABG pH 7.34 pH Units (7.32-7.45) 06/06/16 04:29 ABG pCO2 47 mmHg (35-45) H 06/06/16 04:29 ABG pO2 78 mmHg (85-104) L 06/06/16 04:29 ABG O2 Saturation 95 % (95-98) 06/06/16 04:29 PT/INR, D-dimer PT 20.5 Seconds (9.4-12.1) H D 06/06/16 04:00 Abnormal lab findings: Abnormal lab results WBC 19.6 K/mcL (4.3-11.1) H 06/06/16 04:00 RBC 5.14 M/mcL (3.82-4.97) H 06/06/16 04:00 MCH 27.4 pg (28.0-33.3) L 06/06/16 04:00 RDW 16.4 % (11.5-14.5) H 06/06/16 04:00 MPV 12.6 fL (9.4-12.4) H 06/06/16 04:00 Neutrophils # 17.3 K/mcL (1.6-8.9) H 06/06/16 04:00 Lymphocytes # 0.4 K/mcL (0.6-4.6) L 06/06/16 04:00 Monocytes # 1.7 K/mcL (0.0-1.3) H 06/06/16 04:00 Nucleated RBCs/100 WBC 0.3 /100 WBC (0) H 06/06/16 04:00 PT 20.5 Seconds (9.4-12.1) H D 06/06/16 04:00 APTT 38.6 Seconds (26.0-36.0) H 06/05/16 03:45 ABG pCO2 47 mmHg (35-45) H 06/06/16 04:29 ABG pO2 78 mmHg (85-104) L 06/06/16 04:29 ABG Total CO2 26.8 mEq/L (20-26) H 06/06/16 04:29 Sodium 124 mEq/L (136-145) L 06/06/16 04:00 Potassium 4.9 mEq/L (3.5-4.5) H 06/06/16 04:00 Chloride 94 mEq/L (98-109) L 06/06/16 04:00 BUN 32 mg/dL (7-20) H 06/06/16 04:00 Creatinine 1.93 mg/dL (0.57-1.11) H 06/06/16 04:00 Est GFR ( Amer) 32 (> 60) L 06/06/16 04:00 Est GFR (Non-Af Amer) 27 (> 60) L 06/06/16 04:00 Glucose 168 mg/dL (70-99) H 06/06/16 04:00 POC Glucose 139 (58-89) H 06/06/16 06:52 Calculated Osmolality 269 (280-300) L 06/06/16 04:00 Total Bilirubin 1.5 mg/dL (0.2-1.2) H 06/05/16 03:45 Direct Bilirubin 1.0 mg/dL (0.0-0.5) H 06/05/16 03:45 B-Natriuretic Peptide 1350 pg/mL (0-100) H 06/04/16 03:35 Albumin 2.8 g/dL (3.5-5.0) L 06/05/16 03:45 Globulin 4.3 g/dL (2.4-3.5) H 06/05/16 03:45 Albumin/Globulin Ratio 0.7 (1.1-2.2) L 06/05/16 03:45 HDL Cholesterol 15 mg/dL (40-59) L 06/04/16 03:35 TSH 6.183 mcIU/mL (0.350-4.840) H 06/03/16 21:07 Urine Blood Moderate (Negative) H 06/04/16 06:30 Ur Leukocyte Esterase Trace (Negative) H 06/04/16 06:30 Urine Microscopic RBC 15-30 per hpf (0-3) H 06/04/16 06:30 Urine Microscopic WBC 5-15 per hpf (0-3) H 06/04/16 06:30 Ur Squamous Epith Cells Many per lpf (None-Few) H 06/04/16 06:30 Ur Culture Indicated? YES (NO) A 06/04/16 06:30 - Microbiology Findings Microbiology Findings: Microbiology, Last 48 Hours 06/04/16 09:40 Sputum Culture - Final Sputum 06/04/16 06:30 Urine Culture - Final Urine,Clean Catch No growth. - Clinical Findings Intake & Output: Intake & Output 06/05/16 06/05/16 06/06/16 15:59 23:59 07:59 Intake Total 1340.28 / 1340.28 707.4 / 707.4 1212.5 / 1212.5 Output Total 1862 / 1862 1685 / 1685 1278 / 1278 Balance -521.72 / -521.72 -977.6 / -977.6 -65.5 / -65.5 Weight 92.76 kg
[2016-06-06] MEDS ORDERED: 0.9 % Sodium Chloride 2,000 ML ONE (07:15)
[2016-06-06] MEDS ORDERED: 0.9 % Sodium Chloride 1,000 ML ONE (07:36)
--- NOTE | 2016-06-06 08:20 | Nephrology Progress Note ---
Date of Encounter: 06/06/16 Time of Encounter: 07:50 - Assessment and Plan (1) MINNIE (acute kidney injury) Current Visit: No Status: Acute A/P- Respiratory failure, cardiogenic shock r/t severe systolic dysfunction. Sedated/intubated on vent, on multiple pressors. MINNIE on known mild CKD in setting of chronic NSAID use with recent baseline creat 1.2. Urine output 288cc , hematuric. Will continue Allison at current settings. Palliative care on board. Subjective Principal diagnosis: Shock, hyperkalemia, MINNIE, and acute on chronic respiratory failure Interval history: Intubated/sedated on vent, FIO2 75%, multiple pressors Objective - Vital Signs Vital signs: Vital Signs Temp Pulse Resp BP Pulse Ox 06/06/16 07:00 125 24 98/58 92 L 06/06/16 06:00 122 112 101/62 92 L 06/06/16 05:00 111 24 104/55 91 L 06/06/16 04:35 24 93/56 92 L 06/06/16 04:32 98.5 F 114 27 104/56 91 L 06/06/16 03:00 131 28 108/68 90 L 06/06/16 02:10 28 99/61 90 L 06/06/16 02:00 121 26 104/59 91 L 06/06/16 01:17 126 26 86/58 91 L 06/06/16 00:02 24 95/60 91 L 06/06/16 00:00 98.4 F 115 24 99/59 92 L 06/05/16 23:00 105 26 98/58 91 L 06/05/16 22:12 24 92/61 91 L 06/05/16 22:00 108 24 90/51 89 L 06/05/16 21:00 103 24 87/50 93 L 06/05/16 20:05 24 90/54 93 L 06/05/16 20:00 96.0 F L 107 24 88/51 93 L 06/05/16 19:00 98 24 97/59 93 L 06/05/16 18:00 105 24 89/58 93 L 06/05/16 17:00 99 24 99/56 90 L 06/05/16 16:21 24 94 L 06/05/16 16:00 97.7 F 96 24 99/60 94 L 06/05/16 15:47 98 24 103/61 94 L 06/05/16 15:00 101 24 87/55 95 06/05/16 14:15 18 96 06/05/16 14:00 113 18 93/54 96 06/05/16 13:00 116 17 91/52 95 06/05/16 12:00 101 14 96/58 93 L 06/05/16 11:55 97.6 F 100 14 99/63 92 L 06/05/16 11:00 97.6 F 103 15 93/60 92 L 06/05/16 10:34 14 91 L 06/05/16 10:00 111 17 97/60 91 L 06/05/16 09:00 105 16 94/56 89 L Intake and Output 06/05/16 06/06/16 06/06/16 23:59 07:59 15:59 Intake Total 707.4 / 707.4 1849.5 / 1849.5 Output Total 1685 / 1685 1423 / 1423 Balance -977.6 / -977.6 426.5 / 426.5 Intake: IV Fluids 707.4 / 707.4 1849.5 / 1849.5 PrismaSATE BGK 4/2.5 5, 0 / 0 000 ML @ 1000 mls/hr CRRT CONT [facility] Rx#:[id number] Amiodarone 360mg/200mL 281 / 281 Drip Premix 360 mg In 200 ml @ 0.5 MG/MIN 16.667 mls/hr IVC CONT [facility] Rx#: [id number] DOBUTamine 250 MG/250 ML 160 / 160 377 / 377 D5W 250 mg In 250 ml @ 2. 5 MCG/KG/MIN 13.472 mls/ hr IVC .[id number] [facility] Rx#: [id number] FentaNYL (PF) 1,000 MCG 106.5 / 106.5 In 0.9 % Sodium Chloride 80 ML @ 25 MCG/HR 2.5 mls /hr IVC CONT [facility] Rx#: [id number] HumuLIN R 100 UNIT In 0. 23.4 / 23.4 25 / 25 9 % Sodium Chloride 100 ML @ 5 UNIT/HR 5.05 mls/ hr IVC CONT [facility] Rx#: [id number] Versed 50 MG In 0.9 % 16 / 16 137 / 137 Sodium Chloride 90 ML @ 0 .2 MG/HR 0.4 mls/hr IVC [facility] Rx#:[id number] Levophed 8 MG In Dextrose 508 / 508 807 / 807 5% 500 ML @ 5 MCG/MIN 19 .05 mls/hr IVC CONT [facility] Rx#:[id number] Vasostrict 40 UNIT In 116 / 116 Dextrose 5% 100 ML @ 0.03 UNIT/MIN 4.59 mls/hr IVC .[id number] [facility] Rx#: [id number] Oral 0 / 0 0 / 0 Output: Allison 1617 / 1617 1331 / 1331 Catheter 68 / 68 Gastric Drainage 0 / 0 75 / 75 Other: Weight 92.76 kg Blood Glucose* 150 139 Patient Weight 06/06/16 23:59 Weight 92.76 kg - General Appearance General appearance: Present: well-developed, well-nourished, appears started age , chronically ill EENT: Present: mucous membranes moist Neck: Present: no JVD Respiratory: Present: clear Cardiology: Present: edema, irregular rhythm Additional Comments: generalized. Gastrointestinal: Present: hypoactive bowel sounds Integumentary: Present: warm and dry - Lab 06/06/16 04:00 06/06/16 04:00 Most recent lab results ABG pH 7.34 pH Units (7.32-7.45) 06/06/16 04:29 ABG pCO2 47 mmHg (35-45) H 06/06/16 04:29 ABG pO2 78 mmHg (85-104) L 06/06/16 04:29 ABG HCO3 25.4 mEQ/L (21-27) 06/06/16 04:29 ABG O2 Saturation 95 % (95-98) 06/06/16 04:29 Calcium 8.8 mg/dL (8.6-10.8) 06/06/16 04:00 Phosphorus 3.8 mg/dL (2.3-4.7) 06/05/16 03:45 Magnesium 2.0 mg/dL (1.6-2.6) 06/05/16 03:45 Consult Discharge Plan - Plan Referrals: Giovanny Reardon MD [Primary Care Provider] -
[2016-06-06] MEDS: Levofloxacin 500 MG/100 ML 500 MG/100 ML BAG IVPB SCH (08:29)
[2016-06-06] MEDS: Chlorhexidine Rinse 15 ML MOUTHWASH MM SCH ×2 (08:30→20:09)
[2016-06-06] MEDS ORDERED: Vancomycin 1,000 MG in D5% in Water 250 ML IVPB ONE (09:00)
--- NOTE | 2016-06-06 11:24 | Palliative Progress Note ---
Date of Encounter: 06/06/16 Time of Encounter: 10:50 - Assessment and plan (1) Generalized pain Current Visit: Yes Status: Acute Assessment and plan: Remain on Fentanyl drip per ICU protocol, continue and monitor (2) Anxiety Current Visit: Yes Status: Acute Assessment and plan: Remains on Versed per ICU protocol and monitor (3) Goals of care, counseling/discussion Current Visit: No Status: Acute Assessment and plan: Spoke with Sharad at bedside. Dr. Kelley stopped and spoke with him and daughters. He is tearful, stated that he understands the outlook is poor. Asking if they take tube out, if she would be able to speak with them. He still desires aggressive approach to care for the time being, and is aware that she is subject to many complications. Provided emotional support to . (4) Ischemic cardiomyopathy Current Visit: No Status: Chronic (5) Heart failure, systolic and diastolic, acute on chronic Current Visit: No Status: Acute (6) Sepsis Current Visit: No Status: Acute Qualifiers: Sepsis type: sepsis due to unspecified organism Qualified Code(s): A41.9 - Sepsis, unspecified organism - Time Spent With Patient Total time spent is greater than 50% in coordination of care (as documented) at patient's floor/unit and/or counseling patient: 25 - 35 minutes - Subjective Interval history: Patient remains sedated on vent. FIO2 @ 70%, PEEP 5 at my visit. Developed hematuria overnight. Vit K has been ordered. Levo infusion has been decreased slightly. ABG's improved this am. at bedside. - Constitutional Vitals: Abnormal lab results WBC 19.6 K/mcL (4.3-11.1) H 06/06/16 04:00 RBC 5.14 M/mcL (3.82-4.97) H 06/06/16 04:00 MCH 27.4 pg (28.0-33.3) L 06/06/16 04:00 RDW 16.4 % (11.5-14.5) H 06/06/16 04:00 MPV 12.6 fL (9.4-12.4) H 06/06/16 04:00 Neutrophils # 17.3 K/mcL (1.6-8.9) H 06/06/16 04:00 Lymphocytes # 0.4 K/mcL (0.6-4.6) L 06/06/16 04:00 Monocytes # 1.7 K/mcL (0.0-1.3) H 06/06/16 04:00 Nucleated RBCs/100 WBC 0.3 /100 WBC (0) H 06/06/16 04:00 PT 20.5 Seconds (9.4-12.1) H D 06/06/16 04:00 APTT 38.6 Seconds (26.0-36.0) H 06/05/16 03:45 ABG pCO2 47 mmHg (35-45) H 06/06/16 04:29 ABG pO2 78 mmHg (85-104) L 06/06/16 04:29 ABG Total CO2 26.8 mEq/L (20-26) H 06/06/16 04:29 Sodium 124 mEq/L (136-145) L 06/06/16 04:00 Potassium 4.9 mEq/L (3.5-4.5) H 06/06/16 04:00 Chloride 94 mEq/L (98-109) L 06/06/16 04:00 BUN 32 mg/dL (7-20) H 06/06/16 04:00 Creatinine 1.93 mg/dL (0.57-1.11) H 06/06/16 04:00 Est GFR ( Amer) 32 (> 60) L 06/06/16 04:00 Est GFR (Non-Af Amer) 27 (> 60) L 06/06/16 04:00 Glucose 168 mg/dL (70-99) H 06/06/16 04:00 POC Glucose 173 (58-89) H 06/06/16 11:04 Calculated Osmolality 269 (280-300) L 06/06/16 04:00 Total Bilirubin 1.5 mg/dL (0.2-1.2) H 06/05/16 03:45 Direct Bilirubin 1.0 mg/dL (0.0-0.5) H 06/05/16 03:45 B-Natriuretic Peptide 1350 pg/mL (0-100) H 06/04/16 03:35 Albumin 2.8 g/dL (3.5-5.0) L 06/05/16 03:45 Globulin 4.3 g/dL (2.4-3.5) H 06/05/16 03:45 Albumin/Globulin Ratio 0.7 (1.1-2.2) L 06/05/16 03:45 HDL Cholesterol 15 mg/dL (40-59) L 06/04/16 03:35 TSH 6.183 mcIU/mL (0.350-4.840) H 06/03/16 21:07 Urine Blood Moderate (Negative) H 06/04/16 06:30 Ur Leukocyte Esterase Trace (Negative) H 06/04/16 06:30 Urine Microscopic RBC 15-30 per hpf (0-3) H 06/04/16 06:30 Urine Microscopic WBC 5-15 per hpf (0-3) H 06/04/16 06:30 Ur Squamous Epith Cells Many per lpf (None-Few) H 06/04/16 06:30 Ur Culture Indicated? YES (NO) A 06/04/16 06:30 General appearance: Present: no acute distress - Respiratory Additional comments: Breath sounds course throughout. Remains on vent. - Cardiovascular Cardiovascular exam: Present: irregular rhythm - GI/Abdominal GI/Abdominal exam: Present: distended, hypoactive bowel sounds, soft - Additional comments: Small amount bloody urine noted in catheter tubing - Extremities Exam Additional comments: 2+ edema bilateral lower extremity edema - Neurological Exam Additional comments: Sedated on vent - Skin Skin exam: Present: dry, warm Palliative Quality Palliative Quality: Screen for Code Status: Yes, Screen for Goals of Care: Yes, Screen for Pain: Yes, If Pain Regimen Started, Initiate Bowel Regimen: NA, Screen for Nausea/Vomitting: Yes Code Status: 06/04/16 01:31 CODE [Resuscitation Status: Active] [RES] Routine Comment: Resuscitation Status: DNR-Comfort Care-Arrest - Labs CBC & Chem 7: 06/06/16 04:00 06/06/16 04:00 Labs: Laboratory Results - last 24 hr 06/05/16 06/05/16 06/05/16 12:12 12:59 13:30 WBC RBC Hgb Hct MCV MCH MCHC RDW Plt Count MPV Immature Gran % Seg Neutrophils % Lymphocytes % Monocytes % Eosinophils % Basophils % Neutrophils # Lymphocytes # Monocytes # Eosinophils # Basophils # Nucleated RBCs/100 WBC PT INR ABG pH ABG pCO2 ABG pO2 ABG HCO3 ABG Total CO2 ABG O2 Saturation ABG Base Excess Blood Gas Modality Inspired O2 PEEP Sodium Potassium Chloride Carbon Dioxide BUN Creatinine Est GFR ( Amer) Est GFR (Non-Af Amer) BUN/Creatinine Ratio Glucose POC Glucose 208 H 198 H Calculated Osmolality Calcium Random Vancomycin Chlamy pneumoniae PCR Not Detected Adenovirus (PCR) Not Detected B. pertussis DNA (PCR) Not Detected Coronavirus OC43 (PCR) Not Detected Coronavirus HKU1 (PCR) Not Detected Coronavirus 229E (PCR) Not Detected Coronavirus NL63 (PCR) Not Detected Human Metapneumovirus Not Detected Influenza A (H1) PCR Not Detected Influ A (H1N1) PCR Not Detected Influenza A (H3) PCR Not Detected Influenza A Untype (PCR) Not Detected Influenza Type B (PCR) Not Detected M.pneumoniae DNA (PCR) Not Detected Parainfluenza 1 (PCR) Not Detected Parainfluenza 2 (PCR) Not Detected Parainfluenza 3 (PCR) Not Detected Parainfluenza 4 (PCR) Not Detected RSV (PCR) Not Detected Entero/Rhino (PCR) Not Detected 06/05/16 06/05/16 06/05/16 14:11 14:30 15:07 WBC RBC Hgb Hct MCV MCH MCHC RDW Plt Count MPV Immature Gran % Seg Neutrophils % Lymphocytes % Monocytes % Eosinophils % Basophils % Neutrophils # Lymphocytes # Monocytes # Eosinophils # Basophils # Nucleated RBCs/100 WBC PT INR ABG pH 7.18 L* ABG pCO2 67 H ABG pO2 99 ABG HCO3 25.0 ABG Total CO2 27.1 H ABG O2 Saturation 96 ABG Base Excess -4.7 L Blood Gas Modality VENT Inspired O2 90 PEEP 8 Sodium Potassium Chloride Carbon Dioxide BUN Creatinine Est GFR ( Amer) Est GFR (Non-Af Amer) BUN/Creatinine Ratio Glucose POC Glucose 183 H 167 H Calculated Osmolality Calcium Random Vancomycin Chlamy pneumoniae PCR Adenovirus (PCR) B. pertussis DNA (PCR) Coronavirus OC43 (PCR) Coronavirus HKU1 (PCR) Coronavirus 229E (PCR) Coronavirus NL63 (PCR) Human Metapneumovirus Influenza A (H1) PCR Influ A (H1N1) PCR Influenza A (H3) PCR Influenza A Untype (PCR) Influenza Type B (PCR) M.pneumoniae DNA (PCR) Parainfluenza 1 (PCR) Parainfluenza 2 (PCR) Parainfluenza 3 (PCR) Parainfluenza 4 (PCR) RSV (PCR) Entero/Rhino (PCR) 06/05/16 06/05/16 06/05/16 15:57 16:00 17:06 WBC RBC Hgb Hct MCV MCH MCHC RDW Plt Count MPV Immature Gran % Seg Neutrophils % Lymphocytes % Monocytes % Eosinophils % Basophils % Neutrophils # Lymphocytes # Monocytes # Eosinophils # Basophils # Nucleated RBCs/100 WBC PT INR ABG pH 7.24 L ABG pCO2 55 H ABG pO2 81 L ABG HCO3 23.6 ABG Total CO2 25.3 ABG O2 Saturation 94 L ABG Base Excess -4.6 L Blood Gas Modality Inspired O2 80 PEEP Sodium Potassium Chloride Carbon Dioxide BUN Creatinine Est GFR ( Amer) Est GFR (Non-Af Amer) BUN/Creatinine Ratio Glucose POC Glucose 175 H 145 H Calculated Osmolality Calcium Random Vancomycin Chlamy pneumoniae PCR Adenovirus (PCR) B. pertussis DNA (PCR) Coronavirus OC43 (PCR) Coronavirus HKU1 (PCR) Coronavirus 229E (PCR) Coronavirus NL63 (PCR) Human Metapneumovirus Influenza A (H1) PCR Influ A (H1N1/09) PCR Influenza A (H3) PCR Influenza A Untype (PCR) Influenza Type B (PCR) M.pneumoniae DNA (PCR) Parainfluenza 1 (PCR) Parainfluenza 2 (PCR) Parainfluenza 3 (PCR) Parainfluenza 4 (PCR) RSV (PCR) Entero/Rhino (PCR) 06/05/16 06/05/16 06/05/16 17:40 17:58 18:55 WBC RBC Hgb Hct MCV MCH MCHC RDW Plt Count MPV Immature Gran % Seg Neutrophils % Lymphocytes % Monocytes % Eosinophils % Basophils % Neutrophils # Lymphocytes # Monocytes # Eosinophils # Basophils # Nucleated RBCs/100 WBC PT INR ABG pH ABG pCO2 ABG pO2 ABG HCO3 ABG Total CO2 ABG O2 Saturation ABG Base Excess Blood Gas Modality Inspired O2 PEEP Sodium 126 L Potassium 4.2 Chloride 95 L Carbon Dioxide 25 BUN 32 H Creatinine 1.77 H Est GFR ( Amer) 36 L Est GFR (Non-Af Amer) 30 L BUN/Creatinine Ratio 18 Glucose 155 H POC Glucose 154 H 137 H Calculated Osmolality 272 L Calcium 8.6 Random Vancomycin Chlamy pneumoniae PCR Adenovirus (PCR) B. pertussis DNA (PCR) Coronavirus OC43 (PCR) Coronavirus HKU1 (PCR) Coronavirus 229E (PCR) Coronavirus NL63 (PCR) Human Metapneumovirus Influenza A (H1) PCR Influ A (H1N1/09) PCR Influenza A (H3) PCR Influenza A Untype (PCR) Influenza Type B (PCR) M.pneumoniae DNA (PCR) Parainfluenza 1 (PCR) Parainfluenza 2 (PCR) Parainfluenza 3 (PCR) Parainfluenza 4 (PCR) RSV (PCR) Entero/Rhino (PCR) 06/05/16 06/05/16 06/05/16 19:43 19:53 21:03 WBC RBC Hgb Hct MCV MCH MCHC RDW Plt Count MPV Immature Gran % Seg Neutrophils % Lymphocytes % Monocytes % Eosinophils % Basophils % Neutrophils # Lymphocytes # Monocytes # Eosinophils # Basophils # Nucleated RBCs/100 WBC PT INR ABG pH 7.29 L ABG pCO2 55 H ABG pO2 61 L ABG HCO3 26.4 ABG Total CO2 28.1 H ABG O2 Saturation 88 L ABG Base Excess -1.4 Blood Gas Modality VENT Inspired O2 70 PEEP Sodium Potassium Chloride Carbon Dioxide BUN Creatinine Est GFR ( Amer) Est GFR (Non-Af Amer) BUN/Creatinine Ratio Glucose POC Glucose 134 H 129 H Calculated Osmolality Calcium Random Vancomycin Chlamy pneumoniae PCR Adenovirus (PCR) B. pertussis DNA (PCR) Coronavirus OC43 (PCR) Coronavirus HKU1 (PCR) Coronavirus 229E (PCR) Coronavirus NL63 (PCR) Human Metapneumovirus Influenza A (H1) PCR Influ A (H1N1/09) PCR Influenza A (H3) PCR Influenza A Untype (PCR) Influenza Type B (PCR) M.pneumoniae DNA (PCR) Parainfluenza 1 (PCR) Parainfluenza 2 (PCR) Parainfluenza 3 (PCR) Parainfluenza 4 (PCR) RSV (PCR) Entero/Rhino (PCR) 06/05/16 06/05/16 06/06/16 22:05 23:04 00:03 WBC RBC Hgb Hct MCV MCH MCHC RDW Plt Count MPV Immature Gran % Seg Neutrophils % Lymphocytes % Monocytes % Eosinophils % Basophils % Neutrophils # Lymphocytes # Monocytes # Eosinophils # Basophils # Nucleated RBCs/100 WBC PT INR ABG pH ABG pCO2 ABG pO2 ABG HCO3 ABG Total CO2 ABG O2 Saturation ABG Base Excess Blood Gas Modality Inspired O2 PEEP Sodium Potassium Chloride Carbon Dioxide BUN Creatinine Est GFR ( Amer) Est GFR (Non-Af Amer) BUN/Creatinine Ratio Glucose POC Glucose 132 H 150 H 138 H Calculated Osmolality Calcium Random Vancomycin Chlamy pneumoniae PCR Adenovirus (PCR) B. pertussis DNA (PCR) Coronavirus OC43 (PCR) Coronavirus HKU1 (PCR) Coronavirus 229E (PCR) Coronavirus NL63 (PCR) Human Metapneumovirus Influenza A (H1) PCR Influ A (H1N1/) PCR Influenza A (H3) PCR Influenza A Untype (PCR) Influenza Type B (PCR) M.pneumoniae DNA (PCR) Parainfluenza 1 (PCR) Parainfluenza 2 (PCR) Parainfluenza 3 (PCR) Parainfluenza 4 (PCR) RSV (PCR) Entero/Rhino (PCR) 06/06/16 06/06/16 06/06/16 01:14 01:56 03:01 WBC RBC Hgb Hct MCV MCH MCHC RDW Plt Count MPV Immature Gran % Seg Neutrophils % Lymphocytes % Monocytes % Eosinophils % Basophils % Neutrophils # Lymphocytes # Monocytes # Eosinophils # Basophils # Nucleated RBCs/100 WBC PT INR ABG pH ABG pCO2 ABG pO2 ABG HCO3 ABG Total CO2 ABG O2 Saturation ABG Base Excess Blood Gas Modality Inspired O2 PEEP Sodium Potassium Chloride Carbon Dioxide BUN Creatinine Est GFR ( Amer) Est GFR (Non-Af Amer) BUN/Creatinine Ratio Glucose POC Glucose 137 H 137 H 139 H Calculated Osmolality Calcium Random Vancomycin Chlamy pneumoniae PCR Adenovirus (PCR) B. pertussis DNA (PCR) Coronavirus OC43 (PCR) Coronavirus HKU1 (PCR) Coronavirus 229E (PCR) Coronavirus NL63 (PCR) Human Metapneumovirus Influenza A (H1) PCR Influ A (H1N1/) PCR Influenza A (H3) PCR Influenza A Untype (PCR) Influenza Type B (PCR) M.pneumoniae DNA (PCR) Parainfluenza 1 (PCR) Parainfluenza 2 (PCR) Parainfluenza 3 (PCR) Parainfluenza 4 (PCR) RSV (PCR) Entero/Rhino (PCR) 06/06/16 06/06/16 06/06/16 04:00 04:00 04:00 WBC 19.6 H RBC 5.14 H Hgb 14.1 Hct 44.2 MCV 86.0 MCH 27.4 L MCHC 31.9 RDW 16.4 H Plt Count 179 MPV 12.6 H Immature Gran % 0.7 Seg Neutrophils % 88.3 Lymphocytes % 2.2 Monocytes % 8.7 Eosinophils % 0.0 Basophils % 0.1 Neutrophils # 17.3 H Lymphocytes # 0.4 L Monocytes # 1.7 H Eosinophils # 0.0 Basophils # 0.0 Nucleated RBCs/100 WBC 0.3 H PT INR ABG pH ABG pCO2 ABG pO2 ABG HCO3 ABG Total CO2 ABG O2 Saturation ABG Base Excess Blood Gas Modality Inspired O2 PEEP Sodium 124 L Potassium 4.9 H Chloride 94 L Carbon Dioxide 20 BUN 32 H Creatinine 1.93 H Est GFR ( Amer) 32 L Est GFR (Non-Af Amer) 27 L BUN/Creatinine Ratio 17 Glucose 168 H POC Glucose Calculated Osmolality 269 L Calcium 8.8 Random Vancomycin 11.8 Chlamy pneumoniae PCR Adenovirus (PCR) B. pertussis DNA (PCR) Coronavirus OC43 (PCR) Coronavirus HKU1 (PCR) Coronavirus 229E (PCR) Coronavirus NL63 (PCR) Human Metapneumovirus Influenza A (H1) PCR Influ A (H1N1/09) PCR Influenza A (H3) PCR Influenza A Untype (PCR) Influenza Type B (PCR) M.pneumoniae DNA (PCR) Parainfluenza 1 (PCR) Parainfluenza 2 (PCR) Parainfluenza 3 (PCR) Parainfluenza 4 (PCR) RSV (PCR) Entero/Rhino (PCR) 06/06/16 06/06/16 06/06/16 04:00 04:05 04:29 WBC RBC Hgb Hct MCV MCH MCHC RDW Plt Count MPV Immature Gran % Seg Neutrophils % Lymphocytes % Monocytes % Eosinophils % Basophils % Neutrophils # Lymphocytes # Monocytes # Eosinophils # Basophils # Nucleated RBCs/100 WBC PT 20.5 H D INR 1.9 D ABG pH 7.34 ABG pCO2 47 H ABG pO2 78 L ABG HCO3 25.4 ABG Total CO2 26.8 H ABG O2 Saturation 95 ABG Base Excess -1.0 Blood Gas Modality VENT Inspired O2 75 PEEP Sodium Potassium Chloride Carbon Dioxide BUN Creatinine Est GFR ( Amer) Est GFR (Non-Af Amer) BUN/Creatinine Ratio Glucose POC Glucose 146 H Calculated Osmolality Calcium Random Vancomycin Chlamy pneumoniae PCR Adenovirus (PCR) B. pertussis DNA (PCR) Coronavirus OC43 (PCR) Coronavirus HKU1 (PCR) Coronavirus 229E (PCR) Coronavirus NL63 (PCR) Human Metapneumovirus Influenza A (H1) PCR Influ A (H1N1/09) PCR Influenza A (H3) PCR Influenza A Untype (PCR) Influenza Type B (PCR) M.pneumoniae DNA (PCR) Parainfluenza 1 (PCR) Parainfluenza 2 (PCR) Parainfluenza 3 (PCR) Parainfluenza 4 (PCR) RSV (PCR) Entero/Rhino (PCR) 06/06/16 06/06/16 06/06/16 05:02 06:03 06:52 WBC RBC Hgb Hct MCV MCH MCHC RDW Plt Count MPV Immature Gran % Seg Neutrophils % Lymphocytes % Monocytes % Eosinophils % Basophils % Neutrophils # Lymphocytes # Monocytes # Eosinophils # Basophils # Nucleated RBCs/100 WBC PT INR ABG pH ABG pCO2 ABG pO2 ABG HCO3 ABG Total CO2 ABG O2 Saturation ABG Base Excess Blood Gas Modality Inspired O2 PEEP Sodium Potassium Chloride Carbon Dioxide BUN Creatinine Est GFR ( Amer) Est GFR (Non-Af Amer) BUN/Creatinine Ratio Glucose POC Glucose 143 H 145 H 139 H Calculated Osmolality Calcium Random Vancomycin Chlamy pneumoniae PCR Adenovirus (PCR) B. pertussis DNA (PCR) Coronavirus OC43 (PCR) Coronavirus HKU1 (PCR) Coronavirus 229E (PCR) Coronavirus NL63 (PCR) Human Metapneumovirus Influenza A (H1) PCR Influ A (H1N1/09) PCR Influenza A (H3) PCR Influenza A Untype (PCR) Influenza Type B (PCR) M.pneumoniae DNA (PCR) Parainfluenza 1 (PCR) Parainfluenza 2 (PCR) Parainfluenza 3 (PCR) Parainfluenza 4 (PCR) RSV (PCR) Entero/Rhino (PCR) 06/06/16 06/06/16 06/06/16 08:15 09:11 10:02 WBC RBC Hgb Hct MCV MCH MCHC RDW Plt Count MPV Immature Gran % Seg Neutrophils % Lymphocytes % Monocytes % Eosinophils % Basophils % Neutrophils # Lymphocytes # Monocytes # Eosinophils # Basophils # Nucleated RBCs/100 WBC PT INR ABG pH ABG pCO2 ABG pO2 ABG HCO3 ABG Total CO2 ABG O2 Saturation ABG Base Excess Blood Gas Modality Inspired O2 PEEP Sodium Potassium Chloride Carbon Dioxide BUN Creatinine Est GFR ( Amer) Est GFR (Non-Af Amer) BUN/Creatinine Ratio Glucose POC Glucose 135 H 149 H 177 H Calculated Osmolality Calcium Random Vancomycin Chlamy pneumoniae PCR Adenovirus (PCR) B. pertussis DNA (PCR) Coronavirus OC43 (PCR) Coronavirus HKU1 (PCR) Coronavirus 229E (PCR) Coronavirus NL63 (PCR) Human Metapneumovirus Influenza A (H1) PCR Influ A (H1N1) PCR Influenza A (H3) PCR Influenza A Untype (PCR) Influenza Type B (PCR) M.pneumoniae DNA (PCR) Parainfluenza 1 (PCR) Parainfluenza 2 (PCR) Parainfluenza 3 (PCR) Parainfluenza 4 (PCR) RSV (PCR) Entero/Rhino (PCR) 06/06/16 11:04 WBC RBC Hgb Hct MCV MCH MCHC RDW Plt Count MPV Immature Gran % Seg Neutrophils % Lymphocytes % Monocytes % Eosinophils % Basophils % Neutrophils # Lymphocytes # Monocytes # Eosinophils # Basophils # Nucleated RBCs/100 WBC PT INR ABG pH ABG pCO2 ABG pO2 ABG HCO3 ABG Total CO2 ABG O2 Saturation ABG Base Excess Blood Gas Modality Inspired O2 PEEP Sodium Potassium Chloride Carbon Dioxide BUN Creatinine Est GFR ( Amer) Est GFR (Non-Af Amer) BUN/Creatinine Ratio Glucose POC Glucose 173 H Calculated Osmolality Calcium Random Vancomycin Chlamy pneumoniae PCR Adenovirus (PCR) B. pertussis DNA (PCR) Coronavirus OC43 (PCR) Coronavirus HKU1 (PCR) Coronavirus 229E (PCR) Coronavirus NL63 (PCR) Human Metapneumovirus Influenza A (H1) PCR Influ A (H1N1) PCR Influenza A (H3) PCR Influenza A Untype (PCR) Influenza Type B (PCR) M.pneumoniae DNA (PCR) Parainfluenza 1 (PCR) Parainfluenza 2 (PCR) Parainfluenza 3 (PCR) Parainfluenza 4 (PCR) RSV (PCR) Entero/Rhino (PCR) - ABG Interpretation ABG results: ABG ABG pH 7.34 pH Units (7.32-7.45) 06/06/16 04:29 ABG pCO2 47 mmHg (35-45) H 06/06/16 04:29 ABG pO2 78 mmHg (85-104) L 06/06/16 04:29 ABG O2 Saturation 95 % (95-98) 06/06/16 04:29 PT/INR, D-dimer PT 20.5 Seconds (9.4-12.1) H D 06/06/16 04:00 Consult Discharge Plan - Plan Referrals: Giovanny Reardon MD [Primary Care Provider] -
--- NOTE | 2016-06-06 11:50 | Procedure Note ---
Date of procedure: 06/06/16 Pre-op diagnosis: Respiratory Failure Post-op diagnosis: same Procedure: ETT Exchanged. Endotracheal tube was examined via fiberoptic bronchoscope (disposable) scope was cut endotracheal tube was removed and replaced with new endotracheal tube ( 7.5) and placement was confirmed via Co2 color change and direct visualization with fiberoptic bronchoscopy. Porcedure associated with hypoxia that resolved with continued MV support. CXR pending at this time. Anesthesia: IV sedation Surgeon: Jamal Katz Pathology: none sent Condition: other (no change (ongoing critical illness in ICU)) Disposition: no change
[2016-06-06 12:01] LABS: Hematocrit 44.3 % (35.3-44.9); Hemoglobin 14.1 g/dL (11.5-15.4)
[2016-06-06 12:20] LABS: ABG Base Excess -2.4 mEq/L (-2.0 to 3.0); ABG Oxygen Saturation 94 % (95-98); ABG PCO2 52 mmHg (35-45); ABG PH 7.29 pH Units (7.32-7.45); ABG PO2 80 mmHg (85-104); ABG TCO2 26.6 mEq/L (20-26)
[2016-06-06 12:23] LABS: Blood Gas FiO2 100 %
[2016-06-06] MEDS: Insulin Human Regular 100 UNIT in 0.9 % Sodium Chloride 100 ML IVC SCH (15:37)
--- NOTE | 2016-06-06 16:32 | Cardiology Progress Note ---
Date of Encounter: 06/06/16 Time of Encounter: 10:00 Assessment and Plan (1) Heart failure, systolic and diastolic, acute on chronic Current Visit: No Status: Acute Patient is still undergoing UF for volume removal. No significant change in UOP. Recommend continuing dobutamine to help augment cardiac output. Would attempt titrating down Levophed given tachycardia. (2) Atrial fibrillation Current Visit: No Status: Chronic Presently on amiodarone drip with elevated heart rates. Recommend attempting to wean Levophed. Would prefer continuing dobutamine. Patient unable to be anticoagulated given presenting coagulopathy and now with hematuria. Qualifiers: Atrial fibrillation type: paroxysmal Qualified Code(s): I48.0 - Paroxysmal atrial fibrillation (3) Ischemic cardiomyopathy Current Visit: No Status: Chronic Patient with history of ischemic cardiomyopathy. She was on plavix as an outpatient with allergy to aspirin. Patient's antiplatelet has been held due to coagulopathy and now with hematuria. Discussion w patient/family: Had a long discussion with her family today regarding her presentation, hospital course and prognosis. While I encouraged them to be hopeful, I also explained that her prognosis is very guarded. I recommend we re-evaluate her in another 24h. They did express understanding and are contemplating a palliative transition but would like to continue care at this time. Subjective Principal diagnosis: Shock, hyperkalemia, MINNIE, and acute on chronic respiratory failure Interval history: Patient with dark blood in umana bag. Hgb is stable. No acute overnight events. Objective Vital Signs, Last 4 Hours Temp Pulse Resp BP Pulse Ox 06/06/16 16:00 98.6 F 101 25 88/50 94 L 06/06/16 15:16 24 91/49 91 L 06/06/16 15:10 112 06/06/16 15:00 101 24 98/56 93 L 06/06/16 14:00 101 25 90/51 93 L 06/06/16 13:03 25 97/50 93 L 06/06/16 13:00 105 24 92/53 93 L General: Other (intubated, sedated) HEENT: Atraumatic, Other (ETT in place) Neck: Other (JVP difficult to appreciate) Cardiac: Other (irregularly irregular) Lungs: Other (diminished breath sounds bilaterally) Neuro: Other (intubated, sedated) Abdomen: Soft, Other (soft bowel sounds are present) Extremities: Other (2+ bilateral pitting edema) Results 06/06/16 11:53 06/06/16 04:00 Lab Results 06/05/16 06/06/16 06/06/16 17:40 04:00 04:00 WBC 19.6 H Hgb 14.1 Hct 44.2 Plt Count 179 INR Sodium 126 L 124 L Potassium 4.2 4.9 H Chloride 95 L 94 L Carbon Dioxide 25 20 BUN 32 H 32 H Creatinine 1.77 H 1.93 H Glucose 155 H 168 H Calcium 8.6 8.8 06/06/16 06/06/16 04:00 11:53 WBC Hgb 14.1 Hct 44.3 Plt Count INR 1.9 D Sodium Potassium Chloride Carbon Dioxide BUN Creatinine Glucose Calcium - Imaging and Cardiology Chest Xray: report reviewed (no concerning dysrhythmia) Consult Discharge Plan - Plan Referrals: Giovanny Reardon MD [Primary Care Provider] -
[2016-06-07] MEDS: Ipratropium/Albuterol Neb 3 ML IH SCH ×7 (00:04→23:23)
[2016-06-07] MEDS: Hydrocortisone Sodium Succ 100 MG/2 ML VIAL IVP SCH ×4 (00:27→23:16)
[2016-06-07] MEDS: Norepinephrine 8 MG in D5% in Water 500 ML IVC SCH ×2 (00:27→15:37)
[2016-06-07] MEDS: FentaNYL (PF) 1,000 MCG in 0.9 % Sodium Chloride 80 ML IVC SCH ×2 (00:28→16:26)
[2016-06-07] MEDS: Lacri-Lube 3.5 GM TUBE BOTH EYES SCH ×7 (00:29→23:16)
[2016-06-07] MEDS: Vasopressin 40 UNIT in D5% in Water 100 ML IVC SCH ×2 (02:56→12:04)
[2016-06-07] MEDS: PrismaSATE BGK 4/2.5 5,000 ML CRRT SCH ×4 (03:04→11:40)
[2016-06-07] MEDS: Amiodarone Premix 360 MG/200 ML BAG IVC SCH ×2 (04:48→16:24)
[2016-06-07 04:49] LABS: ABG Base Excess -2.2 mEq/L (-2.0 to 3.0); ABG HCO3 23.2 mEQ/L (21-27); ABG Oxygen Saturation 97 % (95-98); ABG PCO2 41 mmHg (35-45); ABG PH 7.36 pH Units (7.32-7.45); ABG PO2 97 mmHg (85-104); ABG TCO2 24.5 mEq/L (20-26); Blood Gas FiO2 60 %; Blood Gas Respiration Rate 24; Blood Gas VT 450 cc
[2016-06-07] MEDS: Famotidine 20 MG/2 ML VIAL IVP SCH (04:50)
[2016-06-07 04:53] LABS: INR 1.5; Prothrombin Time 16.4 Seconds (9.4-12.1)
[2016-06-07 04:56] LABS: Basophils % 0.1 %; Hematocrit 44.3 % (35.3-44.9); Hemoglobin 14.8 g/dL (11.5-15.4); Lymphocytes # 0.7 K/mcL (0.6-4.6); Lymphocytes % 3.9 %; Mean Corpuscular HGB Conc 33.4 g/dL (31.6-35.5); Mean Corpuscular Hemoglobin 28.3 pg (28.0-33.3); Mean Corpuscular Volume 84.7 fL (83.0-100.0); Monocytes % 10.5 %; Neutrophils # 16.1 K/mcL (1.6-8.9); Nucleated Red Blood Cells 0.5 /100 WBC (0); Platelet Count 148 K/mcL (140-400); Red Blood Count 5.23 M/mcL (3.82-4.97); Red Cell Distribution Width 16.8 % (11.5-14.5); Segmented Neutrophils % 84.5 %
[2016-06-07 05:06] LABS: Calcium 9.1 mg/dL (8.6-10.8); Potassium 4.9 mEq/L (3.5-4.5)
[2016-06-07 05:44] LABS: Blood Gas PEEP 8 cm H2O
--- NOTE | 2016-06-07 06:52 | Pulmonology Progress Note ---
<Jamal Katz W - Last Filed: 06/07/16 10:23> Objective PUL Vital signs: Last Vital Signs Temp 97.4 F L 06/07/16 07:00 Pulse 90 06/07/16 09:00 Resp 22 06/07/16 09:00 BP 91/63 06/07/16 09:00 Pulse Ox 96 06/07/16 09:00 Ventilator Settings Ventilator Settings: Ventilator Settings, Last 8 Hours Ventilator Mode VC+ Ventilator Mode VC+ Ventilator Mode VC+ Ventilator Mode VC+ Ventilator Mode VC+ Ventilator Mode VC+ Ventilator Mode VC+ Ventilator Mode VC+ Ventilator Mode VC+ Ventilator Mode VC+ Ventilator Mode VC+ Ventilator Mode VC+ Ventilator Mode VC+ Ventilator Tidal Volume 450 Setting Ventilator Tidal Volume 450 Setting Ventilator Tidal Volume 450 Setting Ventilator Tidal Volume 450 Setting Ventilator Tidal Volume 450 Setting Ventilator Tidal Volume 450 Setting Ventilator Tidal Volume 450 Setting Ventilator Tidal Volume 450 Setting Ventilator Tidal Volume 450 Setting Ventilator Tidal Volume 450 Setting Ventilator Tidal Volume 450 Setting Ventilator Tidal Volume 450 Setting Ventilator Tidal Volume 450 Setting Ventilator Respiratory Rate 22 Setting Ventilator Respiratory Rate 22 Setting Ventilator Respiratory Rate 22 Setting Ventilator Respiratory Rate 24 Setting Ventilator Respiratory Rate 24 Setting Ventilator Respiratory Rate 24 Setting Ventilator Respiratory Rate 24 Setting Ventilator Respiratory Rate 24 Setting Ventilator Respiratory Rate 24 Setting Ventilator Respiratory Rate 24 Setting Ventilator Respiratory Rate 24 Setting Ventilator Respiratory Rate 24 Setting Ventilator Respiratory Rate 24 Setting Actual Respiratory Rate 22 Actual Respiratory Rate 22 Actual Respiratory Rate 22 Actual Respiratory Rate 24 Actual Respiratory Rate 27 Actual Respiratory Rate 27 Positive End Expiratory 8 Pressure Positive End Expiratory 8 Pressure Positive End Expiratory 9.4 Pressure Positive End Expiratory 8 Pressure Positive End Expiratory 8 Pressure Positive End Expiratory 8 Pressure Positive End Expiratory 8 Pressure Positive End Expiratory 5 Pressure Positive End Expiratory 8 Pressure Positive End Expiratory 8 Pressure Positive End Expiratory 8 Pressure Positive End Expiratory 8 Pressure Positive End Expiratory 8 Pressure Peak Inspiratory Airway 27 Pressure Peak Inspiratory Airway 29 Pressure Peak Inspiratory Airway 28 Pressure Peak Inspiratory Airway 32 Pressure Peak Inspiratory Airway 31 Pressure Peak Inspiratory Airway 34 Pressure Results - Laboratory Findings CBC and BMP: 06/07/16 04:20 06/07/16 04:20 ABG ABG pH 7.36 pH Units (7.32-7.45) 06/07/16 04:35 ABG pCO2 41 mmHg (35-45) 06/07/16 04:35 ABG pO2 97 mmHg (85-104) 06/07/16 04:35 ABG O2 Saturation 97 % (95-98) 06/07/16 04:35 PT/INR, D-dimer PT 16.4 Seconds (9.4-12.1) H 06/07/16 04:20 Abnormal lab findings: Abnormal lab results WBC 19.0 K/mcL (4.3-11.1) H 06/07/16 04:20 RBC 5.23 M/mcL (3.82-4.97) H 06/07/16 04:20 RDW 16.8 % (11.5-14.5) H 06/07/16 04:20 MPV 13.0 fL (9.4-12.4) H 06/07/16 04:20 Neutrophils # 16.1 K/mcL (1.6-8.9) H 06/07/16 04:20 Monocytes # 2.0 K/mcL (0.0-1.3) H 06/07/16 04:20 Nucleated RBCs/100 WBC 0.5 /100 WBC (0) H 06/07/16 04:20 PT 16.4 Seconds (9.4-12.1) H 06/07/16 04:20 APTT 38.6 Seconds (26.0-36.0) H 06/05/16 03:45 ABG Base Excess -2.2 mEq/L (-2.0 to 3.0) L 06/07/16 04:35 Sodium 123 mEq/L (136-145) L 06/07/16 04:20 Potassium 4.9 mEq/L (3.5-4.5) H 06/07/16 04:20 Chloride 95 mEq/L (98-109) L 06/07/16 04:20 BUN 36 mg/dL (7-20) H 06/07/16 04:20 Creatinine 2.31 mg/dL (0.57-1.11) H 06/07/16 04:20 Est GFR ( Amer) 26 (> 60) L 06/07/16 04:20 Est GFR (Non-Af Amer) 22 (> 60) L 06/07/16 04:20 Glucose 163 mg/dL (70-99) H 06/07/16 04:20 POC Glucose 151 (58-89) H 06/07/16 09:04 Calculated Osmolality 268 (280-300) L 06/07/16 04:20 Total Bilirubin 1.5 mg/dL (0.2-1.2) H 06/05/16 03:45 Direct Bilirubin 1.0 mg/dL (0.0-0.5) H 06/05/16 03:45 B-Natriuretic Peptide 1350 pg/mL (0-100) H 06/04/16 03:35 Albumin 2.8 g/dL (3.5-5.0) L 06/05/16 03:45 Globulin 4.3 g/dL (2.4-3.5) H 06/05/16 03:45 Albumin/Globulin Ratio 0.7 (1.1-2.2) L 06/05/16 03:45 HDL Cholesterol 15 mg/dL (40-59) L 06/04/16 03:35 TSH 6.183 mcIU/mL (0.350-4.840) H 06/03/16 21:07 Urine Blood Moderate (Negative) H 06/04/16 06:30 Ur Leukocyte Esterase Trace (Negative) H 06/04/16 06:30 Urine Microscopic RBC 15-30 per hpf (0-3) H 06/04/16 06:30 Urine Microscopic WBC 5-15 per hpf (0-3) H 06/04/16 06:30 Ur Squamous Epith Cells Many per lpf (None-Few) H 06/04/16 06:30 Ur Culture Indicated? YES (NO) A 06/04/16 06:30 - Microbiology Findings Microbiology Findings: Microbiology, Last 48 Hours 06/05/16 11:07 Blood Culture - Preliminary Peripheral Venipuncture No growth. 06/05/16 10:51 Blood Culture - Preliminary Peripheral Venipuncture No growth. 06/04/16 08:35 Blood Culture - Preliminary Peripheral Venipuncture No growth. 06/05/16 13:30 Urine Culture - Final Urine,Catheterized No growth. 06/04/16 09:40 Sputum Culture - Final Sputum - Clinical Findings Intake & Output: Intake & Output 06/06/16 06/07/16 06/07/16 23:59 07:59 15:59 Intake Total 554.4 / 554.4 1518 / 1518 73.5 / 73.5 Output Total 1810 / 1810 1586 / 1586 173 / 173 Balance -1255.6 / -1255.6 -68 / -68 -99.5 / -99.5 Consult Discharge Plan - Plan Referrals: Giovanny Reardon MD [Primary Care Provider] - - Attending Attestation I examined this patient and my medical decision-making was reviewed with the [employer]INC[employer] ARCHITECT/PA/Advanced Practice Nurse/Resident Physician. I agree with the documented findings, disposition and treatment plan as described except to the extent set forth below. I spent 35min of Critical Care time with this patient. It involved decision making of high complexity to assess, manipulate, and support vital organ system failure and/or to prevent further life threatening deterioration of the patient' s condition. The time involved in the performance of separately reportable procedures was not counted toward critical care time. Patient seen and examined at bedside Labs, radiology, chart personally reviewed. All lines examined without evidence of infection. Neuropsych: intuabted and sedated. Stop benzo. cont fentanyl. daily sedation holiday. able to respond to voice by raising both eyebrows Pulm: hypoxic hypercapnic respiratory failure s/t to pulmonary edema and pneumonia.able to wean FIO2 to 60%. Increase PEEP to 8 today. wean FIO2 for goal as tolerated. continues to have improvement in V/Q mismatch with resultant improvment in ventilation and acidosis. RR dropped goal pH around 7.3 Cards: cardiogenic +/- septic shock. with severe underlying Ischemic Cardiomyopathy leading to MOSF. COnt weaning Vasopressors (levo + Vaso) for goal MAP 60. Dobutamine stopped Cardiologiy on board. Holding Plavix and LTA for Afib for bleeding risk. COnt amiodarone. FEN-GI: Advance enteral feedings. Cont bowel regimen. cont ppi prophylaxis. Suspect hypervolemic hyponatremia. . Renal: Anuric MINNIE with volume overload. CONT CVVH with removal as tolerated. replace lytes per protocol ID: Vanc/Levaquin, leukocytosis imroved overnight (? steroid induced) cultures pending (viral panel negative) Heme/Onc: Cogulopathy without mild hmturia. VitK 5mg x 3 doses given. Stable H/ H. Start chemical DVT prophylaxis Endo: Wean stress dose hydrocortisone monitor glucose, hyperglycemia start basal bolus insulin Integ/MSK: skin care per ICU protocol CODE: [id number], Family updated <Adrian Dennis - Last Filed: 06/07/16 11:30> Date of Encounter: 06/07/16 Time of Encounter: 06:51 Assessment and Plan (1) Shock Current Visit: Yes Status: Acute Cardiogenic and/or septic, patient has ischemic cardiomyopathy with EF 10-15%, ICD in place, dobutamine is off now, still on Levophed, and vasopressin IV drip , blood pressure is still around 90/60, MAP is 70, currently on vancomycin and Levaquin IV for possible hospital-acquired bacterial pneumonia, overall poor prognosis, palliative team has been consulted, her code status has been changed to DNR CCA, patient is also on Allison now for acute renal failure and hyperkalemia, continue to closely monitor patient's blood pressure in the ICU. (2) Acute on chronic respiratory failure with hypoxia and hypercapnia Current Visit: Yes Status: Acute Repeated ABG this AM showed improvement compare to yesterday, curently on FIO2 to 60% and PEEP of 8, acute on chronic respiratory failure likely multifactorial secondary to underlying bacterial pneumonia, acute exacerbation of COPD, acute on chronic systolic CHF along with acute renal failure. Continue to treat underlying causes with Allison, mechanical ventilation, IV steroid and antibiotics. (3) Ischemic cardiomyopathy Current Visit: Yes Status: Acute Previous echo on December 2015 showed left ventricular ejection fraction 15-20% with global left ventricular systolic dysfunction and severely dilated left ventricle, ICD in place, yesterday stopped dobutamine drip, improved HR, MAP is above 65 on levophed and vasopressin drip, overall poor prognosis, palliative team has been consulted and cardio has been following. Con't to closely monitor VS in ICU. (4) Bacterial pneumonia Current Visit: Yes Status: Acute Recently discharged from this hospital on 05/15/2016 community-acquired pneumonia, she was discharged on Levaquin however it was switched to doxycycline , this time she came back with acute on chronic respiratory failure, possible underlying septic shock therefore she was started on vancomycin and Levaquin IV for possible hospital-acquired bacterial pneumonia from previous admission, continue current regimen for now, leukocytosis improved. (5) Acute kidney injury Current Visit: Yes Status: Acute This could be secondary to cardiorenal with a history of ischemic cardiomyopathy and/or prerenal from septic shock, nephrology has been consulted , renal function is worse than yesterday, nephrology note reviewed, they will con't with current Allison setting, will follow their recommendations. (6) Hyponatremia Current Visit: Yes Status: Acute Sodiums level is 123, yesterday was 124, hx with of ischemic cardiomyopathy and pedal pitting edema, serum osmo 268, worsening renal function, possible underlying hypotonic hypervoleic hyponatremia, nephrology has been following, no change in Allison setting today, will follow their recommendations. (7) Hyperkalemia Current Visit: Yes Status: Acute This is likely secondary to acute renal failure, patient was started on Allison over the weekend, potassium level improved to 4.9, nephrology has been following , continue to closely monitor her potassium level. (8) Acute exacerbation of chronic obstructive airways disease Current Visit: Yes Status: Acute Extensive hx of smoking, this could be contributing to her acute on chronic respiratory failure picture, con't duoneb, IV steroid, oxygen support and IV abxs. (9) Atrial fibrillation with RVR Current Visit: Yes Status: Acute Tikosyn is on hold now, currently on amiodarone drip, HR has improved after stopping dobutamine drip, cardio has been following, Eliquis is on hold now for hematuria, vit K IV x3, tomorrow will be the third dose, INR is down to 1.5. (10) Hyperglycemia Current Visit: Yes Status: Acute Last A1C was 6.7 on 11/20/2013, now on IV steroid, decreased dosage, glucose has been stable, will switch from IV to SQ insulin today. (11) DVT prophylaxis Current Visit: Yes Status: Acute Heparin SQ TID. Subjective Principal diagnosis: Shock, hyperkalemia, MINNIE, and acute on chronic respiratory failure Interval history: This is a 56 years old female with history of severe chronic systolic CHF, ischemic cardiomyopathy EF 10-15% with ICD, atrial fibrillation, COPD, cardiac cirrhosis and CAD, who presented to the ER with progressively worsening of shortness of breath, hypotension, acute kidney injury and hyperkalemia, subsequently patient was intubated and transferred to ICU. Patient seen and examined. Dobutamie drip was stopped yesterday, tachycardia improved this morning, no acute events overnight, still having hematuria , total urine output is 50 mL over the last 24 hours, she is satting 96% on FiO2 60%. Objective PUL Vital signs: Last Vital Signs Temp 97.0 F L 06/07/16 04:00 Pulse 100 06/07/16 06:00 Resp 24 06/07/16 06:13 BP 78/52 06/07/16 06:13 Pulse Ox 96 06/07/16 06:13 General appearance: no acute distress, other ( on IV sedation) Eyes: nonicteric ENT: oropharynx moist Neck: supple, no lymphadenopathy Effort: normal Auscultation: left: diminished breath sounds (slightly in upper area), bilateral : rales (at base) Cardiovascular: irregular rhythm Gastrointestinal: normoactive bowel sounds, soft, non-distended Integumentary: normal Extremities: no cyanosis, edema ( +2 pitting pedal bilateral) Musculoskeletal: no deformities pupils equal and round, other ( on IV sedation) Ventilator Settings Ventilator Settings: Ventilator Settings, Last 8 Hours Ventilator Mode VC+ Ventilator Mode VC+ Ventilator Mode VC+ Ventilator Mode VC+ Ventilator Mode VC+ Ventilator Mode VC+ Ventilator Mode VC+ Ventilator Mode VC+ Ventilator Mode VC+ Ventilator Mode VC+ Ventilator Mode VC+ Ventilator Mode VC+ Ventilator Mode VC+ Ventilator Tidal Volume 450 Setting Ventilator Tidal Volume 450 Setting Ventilator Tidal Volume 450 Setting Ventilator Tidal Volume 450 Setting Ventilator Tidal Volume 450 Setting Ventilator Tidal Volume 450 Setting Ventilator Tidal Volume 450 Setting Ventilator Tidal Volume 450 Setting Ventilator Tidal Volume 450 Setting Ventilator Tidal Volume 450 Setting Ventilator Tidal Volume 450 Setting Ventilator Tidal Volume 450 Setting Ventilator Tidal Volume 450 Setting Ventilator Respiratory Rate 24 Setting Ventilator Respiratory Rate 24 Setting Ventilator Respiratory Rate 24 Setting Ventilator Respiratory Rate 24 Setting Ventilator Respiratory Rate 24 Setting Ventilator Respiratory Rate 24 Setting Ventilator Respiratory Rate 24 Setting Ventilator Respiratory Rate 24 Setting Ventilator Respiratory Rate 24 Setting Ventilator Respiratory Rate 24 Setting Ventilator Respiratory Rate 24 Setting Ventilator Respiratory Rate 24 Setting Ventilator Respiratory Rate 24 Setting Actual Respiratory Rate 24 Actual Respiratory Rate 27 Actual Respiratory Rate 27 Actual Respiratory Rate 24 Positive End Expiratory 8 Pressure Positive End Expiratory 8 Pressure Positive End Expiratory 8 Pressure Positive End Expiratory 5 Pressure Positive End Expiratory 8 Pressure Positive End Expiratory 8 Pressure Positive End Expiratory 8 Pressure Positive End Expiratory 8 Pressure Positive End Expiratory 8 Pressure Positive End Expiratory 8 Pressure Positive End Expiratory 8 Pressure Positive End Expiratory 8 Pressure Positive End Expiratory 8 Pressure Peak Inspiratory Airway 32 Pressure Peak Inspiratory Airway 31 Pressure Peak Inspiratory Airway 34 Pressure Peak Inspiratory Airway 30 Pressure Results - Laboratory Findings CBC and BMP: 06/07/16 04:20 06/07/16 04:20 ABG ABG pH 7.36 pH Units (7.32-7.45) 06/07/16 04:35 ABG pCO2 41 mmHg (35-45) 06/07/16 04:35 ABG pO2 97 mmHg (85-104) 06/07/16 04:35 ABG O2 Saturation 97 % (95-98) 06/07/16 04:35 PT/INR, D-dimer PT 16.4 Seconds (9.4-12.1) H 06/07/16 04:20 Abnormal lab findings: Abnormal lab results WBC 19.0 K/mcL (4.3-11.1) H 06/07/16 04:20 RBC 5.23 M/mcL (3.82-4.97) H 06/07/16 04:20 RDW 16.8 % (11.5-14.5) H 06/07/16 04:20 MPV 13.0 fL (9.4-12.4) H 06/07/16 04:20 Neutrophils # 16.1 K/mcL (1.6-8.9) H 06/07/16 04:20 Monocytes # 2.0 K/mcL (0.0-1.3) H 06/07/16 04:20 Nucleated RBCs/100 WBC 0.5 /100 WBC (0) H 06/07/16 04:20 PT 16.4 Seconds (9.4-12.1) H 06/07/16 04:20 APTT 38.6 Seconds (26.0-36.0) H 06/05/16 03:45 ABG Base Excess -2.2 mEq/L (-2.0 to 3.0) L 06/07/16 04:35 Sodium 123 mEq/L (136-145) L 06/07/16 04:20 Potassium 4.9 mEq/L (3.5-4.5) H 06/07/16 04:20 Chloride 95 mEq/L (98-109) L 06/07/16 04:20 BUN 36 mg/dL (7-20) H 06/07/16 04:20 Creatinine 2.31 mg/dL (0.57-1.11) H 06/07/16 04:20 Est GFR ( Amer) 26 (> 60) L 06/07/16 04:20 Est GFR (Non-Af Amer) 22 (> 60) L 06/07/16 04:20 Glucose 163 mg/dL (70-99) H 06/07/16 04:20 POC Glucose 160 (58-89) H 06/07/16 06:02 Calculated Osmolality 268 (280-300) L 06/07/16 04:20 Total Bilirubin 1.5 mg/dL (0.2-1.2) H 06/05/16 03:45 Direct Bilirubin 1.0 mg/dL (0.0-0.5) H 06/05/16 03:45 B-Natriuretic Peptide 1350 pg/mL (0-100) H 06/04/16 03:35 Albumin 2.8 g/dL (3.5-5.0) L 06/05/16 03:45 Globulin 4.3 g/dL (2.4-3.5) H 06/05/16 03:45 Albumin/Globulin Ratio 0.7 (1.1-2.2) L 06/05/16 03:45 HDL Cholesterol 15 mg/dL (40-59) L 06/04/16 03:35 TSH 6.183 mcIU/mL (0.350-4.840) H 06/03/16 21:07 Urine Blood Moderate (Negative) H 06/04/16 06:30 Ur Leukocyte Esterase Trace (Negative) H 06/04/16 06:30 Urine Microscopic RBC 15-30 per hpf (0-3) H 06/04/16 06:30 Urine Microscopic WBC 5-15 per hpf (0-3) H 06/04/16 06:30 Ur Squamous Epith Cells Many per lpf (None-Few) H 06/04/16 06:30 Ur Culture Indicated? YES (NO) A 06/04/16 06:30 - Microbiology Findings Microbiology Findings: Microbiology, Last 48 Hours 06/04/16 08:35 Blood Culture - Preliminary Peripheral Venipuncture No growth. 06/05/16 13:30 Urine Culture - Final Urine,Catheterized No growth. 06/04/16 09:40 Sputum Culture - Final Sputum 06/04/16 06:30 Urine Culture - Final Urine,Clean Catch No growth. - Clinical Findings Intake & Output: Intake & Output 06/06/16 06/06/16 06/07/16 15:59 23:59 07:59 Intake Total 1004.7 / 1004.7 554.4 / 554.4 1260 / 1260 Output Total 1643 / 1643 1810 / 1810 1416 / 1416 Balance -638.3 / -638.3 -1255.6 / -1255.6 -156 / -156
[2016-06-07 07:00] LABS: Magnesium 2.2 mg/dL (1.6-2.6)
[2016-06-07] MEDS: Phenylephrine 20 MG in D5% in Water 250 ML IVC SCH (07:33)
[2016-06-07] MEDS: Chlorhexidine Rinse 15 ML MOUTHWASH MM SCH ×2 (07:35→20:11)
--- NOTE | 2016-06-07 08:13 | Nephrology Progress Note ---
Date of Encounter: 06/07/16 Time of Encounter: 08:05 - Assessment and Plan (1) MINNIE (acute kidney injury) Current Visit: No Status: Acute A/P- Respiratory failure, cardiogenic shock r/t severe systolic dysfunction. Sedated/intubated on vent, on multiple pressors. MINNIE on known mild CKD in setting of chronic NSAID use with recent baseline creat 1.2. creat worse than yesterday, 2.31. Urine output 52cc, hematuric. Will continue Allison at current settings. Palliative care on board. Subjective Principal diagnosis: Shock, hyperkalemia, MINNIE, and acute on chronic respiratory failure Interval history: Intubated/sedated on vent, FIO2 60%, multiple pressors Objective - Vital Signs Vital signs: Vital Signs Temp Pulse Resp BP Pulse Ox 06/07/16 08:00 84 22 93/62 96 06/07/16 07:31 24 95 06/07/16 07:00 97.4 F L 90 24 77/56 96 06/07/16 06:13 24 78/52 96 06/07/16 06:00 100 24 84/60 96 06/07/16 05:00 81 24 94/68 95 06/07/16 04:08 24 111/95 96 06/07/16 04:00 97.0 F L 88 24 86/64 96 06/07/16 03:00 83 26 101/71 96 06/07/16 02:44 26 108/65 96 06/07/16 02:00 74 24 111/72 96 06/07/16 01:00 81 24 97/66 96 06/07/16 00:05 24 93/61 95 06/07/16 00:00 96.8 F L 78 24 96/57 95 06/06/16 23:00 86 24 96/57 95 06/06/16 22:00 86 24 100/59 95 06/06/16 21:57 24 86/56 95 06/06/16 21:00 83 24 102/65 94 L 06/06/16 20:00 97.1 F L 82 24 96/59 94 L 06/06/16 19:29 24 99/60 93 L 06/06/16 19:00 86 24 92/58 94 L 06/06/16 18:00 100 24 101/58 94 L 06/06/16 17:02 24 87/53 94 L 06/06/16 17:00 103 27 89/54 93 L 06/06/16 16:00 98.6 F 101 25 88/50 94 L 06/06/16 15:16 24 91/49 91 L 06/06/16 15:10 112 06/06/16 15:00 101 24 98/56 93 L 06/06/16 14:00 101 25 90/51 93 L 06/06/16 13:03 25 97/50 93 L 06/06/16 13:00 105 24 92/53 93 L 06/06/16 12:00 99.3 F 110 24 89/51 94 L 06/06/16 11:23 125 24 91/58 95 06/06/16 11:10 25 96/68 93 L 06/06/16 11:00 118 24 99/59 94 L 06/06/16 10:00 116 24 86/53 92 L 06/06/16 09:34 27 90/61 92 L 06/06/16 09:00 111 24 92/54 92 L Intake and Output 06/06/16 06/07/16 06/07/16 23:59 07:59 15:59 Intake Total 554.4 / 554.4 1518 / 1518 8 / 8 Output Total 1810 / 1810 1586 / 1586 173 / 173 Balance -1255.6 / -1255.6 -68 / -68 -165 / -165 Intake: IV Fluids 474.4 / 474.4 1435 / 1435 Amiodarone 360mg/200mL 245 / 245 Drip Premix 360 mg In 200 ml @ 0.5 MG/MIN 16.667 mls/hr IVC [facility] Rx#: [id number] FentaNYL (PF) 1,000 MCG 125 / 125 In 0.9 % Sodium Chloride 80 ML @ 25 MCG/HR 2.5 mls /hr IVC [facility] Rx#: [id number] HumuLIN R 100 UNIT In 0. 6.4 / 6.4 26 / 26 9 % Sodium Chloride 100 ML @ 5 UNIT/HR 5.05 mls/ hr IVC [facility] Rx#: [id number] Versed 50 MG In 0.9 % 163 / 163 Sodium Chloride 90 ML @ 0 .2 MG/HR 0.4 mls/hr IVC [facility] Rx#:[id number] Levophed 8 MG In Dextrose 468 / 468 766 / 766 5% 500 ML @ 5 MCG/MIN 19 .05 mls/hr IVC CONT [facility] Rx#:[id number] Vasostrict 40 UNIT In 110 / 110 Dextrose 5% 100 ML @ 0.03 UNIT/MIN 4.59 mls/hr IVC .[id number] [facility] Rx#: [id number] Tube Feeding 80 / 80 83 / 83 Output: Allison 1805 / 1805 1573 / 1573 171 / 171 Catheter Other: Blood Glucose* 135 148 148 - General Appearance General appearance: Present: chronically ill EENT: Present: mucous membranes moist Neck: Present: no JVD Additional Comments: diminished Cardiology: Present: edema, irregular rhythm Additional Comments: generalized, pitting LE - Lab 06/07/16 04:20 06/07/16 04:20 Most recent lab results ABG pH 7.36 pH Units (7.32-7.45) 06/07/16 04:35 ABG pCO2 41 mmHg (35-45) 06/07/16 04:35 ABG pO2 97 mmHg (85-104) 06/07/16 04:35 ABG HCO3 23.2 mEQ/L (21-27) 06/07/16 04:35 ABG O2 Saturation 97 % (95-98) 06/07/16 04:35 Calcium 9.1 mg/dL (8.6-10.8) 06/07/16 04:20 Phosphorus 3.8 mg/dL (2.3-4.7) 06/05/16 03:45 Magnesium 2.2 mg/dL (1.6-2.6) 06/07/16 04:20 Consult Discharge Plan - Plan Referrals: Giovanny Reardon MD [Primary Care Provider] -
[2016-06-07] MEDS ORDERED: 0.9 % Sodium Chloride 1,000 ML ONE ×2 (08:37→08:39)
--- NOTE | 2016-06-07 09:43 | Palliative Progress Note ---
Date of Encounter: 06/07/16 Time of Encounter: 09:40 - Assessment and plan (1) Generalized pain Current Visit: Yes Status: Acute Assessment and plan: Continues on Fentanyl per ICU protocol. Continue and monitor (2) Anxiety Current Visit: Yes Status: Acute Assessment and plan: Versed down to 2mg/hr at present and staff continues to wean. Monitor (3) Goals of care, counseling/discussion Current Visit: No Status: Acute Assessment and plan: Discussed briefly with Sharad and patient's father. Dr. Kelley recently spoke with them as well. They are encouraged with reports from this am with improvements. Provided emotional support. Will continue to follow at a distance. (4) Ischemic cardiomyopathy Current Visit: No Status: Chronic (5) Heart failure, systolic and diastolic, acute on chronic Current Visit: No Status: Acute (6) Sepsis Current Visit: No Status: Acute Qualifiers: Sepsis type: sepsis due to unspecified organism Qualified Code(s): A41.9 - Sepsis, unspecified organism - Time Spent With Patient Total time spent is greater than 50% in coordination of care (as documented) at patient's floor/unit and/or counseling patient: 25 - 35 minutes - Subjective Interval history: Patient remains sedated on vent. Still with hematuria, urine output 50ml last 24 hours. BUN/Cr increased today. Off Dobutamine - Attempting to wean Levo. Sedation has been decreased. ABG's noted this am. - Constitutional Vitals: Abnormal lab results WBC 19.0 K/mcL (4.3-11.1) H 06/07/16 04:20 RBC 5.23 M/mcL (3.82-4.97) H 06/07/16 04:20 RDW 16.8 % (11.5-14.5) H 06/07/16 04:20 MPV 13.0 fL (9.4-12.4) H 06/07/16 04:20 Neutrophils # 16.1 K/mcL (1.6-8.9) H 06/07/16 04:20 Monocytes # 2.0 K/mcL (0.0-1.3) H 06/07/16 04:20 Nucleated RBCs/100 WBC 0.5 /100 WBC (0) H 06/07/16 04:20 PT 16.4 Seconds (9.4-12.1) H 06/07/16 04:20 APTT 38.6 Seconds (26.0-36.0) H 06/05/16 03:45 ABG Base Excess -2.2 mEq/L (-2.0 to 3.0) L 06/07/16 04:35 Sodium 123 mEq/L (136-145) L 06/07/16 04:20 Potassium 4.9 mEq/L (3.5-4.5) H 06/07/16 04:20 Chloride 95 mEq/L (98-109) L 06/07/16 04:20 BUN 36 mg/dL (7-20) H 06/07/16 04:20 Creatinine 2.31 mg/dL (0.57-1.11) H 06/07/16 04:20 Est GFR ( Amer) 26 (> 60) L 06/07/16 04:20 Est GFR (Non-Af Amer) 22 (> 60) L 06/07/16 04:20 Glucose 163 mg/dL (70-99) H 06/07/16 04:20 POC Glucose 151 (58-89) H 06/07/16 09:04 Calculated Osmolality 268 (280-300) L 06/07/16 04:20 Total Bilirubin 1.5 mg/dL (0.2-1.2) H 06/05/16 03:45 Direct Bilirubin 1.0 mg/dL (0.0-0.5) H 06/05/16 03:45 B-Natriuretic Peptide 1350 pg/mL (0-100) H 06/04/16 03:35 Albumin 2.8 g/dL (3.5-5.0) L 06/05/16 03:45 Globulin 4.3 g/dL (2.4-3.5) H 06/05/16 03:45 Albumin/Globulin Ratio 0.7 (1.1-2.2) L 06/05/16 03:45 HDL Cholesterol 15 mg/dL (40-59) L 06/04/16 03:35 TSH 6.183 mcIU/mL (0.350-4.840) H 06/03/16 21:07 Urine Blood Moderate (Negative) H 06/04/16 06:30 Ur Leukocyte Esterase Trace (Negative) H 06/04/16 06:30 Urine Microscopic RBC 15-30 per hpf (0-3) H 06/04/16 06:30 Urine Microscopic WBC 5-15 per hpf (0-3) H 06/04/16 06:30 Ur Squamous Epith Cells Many per lpf (None-Few) H 06/04/16 06:30 Ur Culture Indicated? YES (NO) A 06/04/16 06:30 General appearance: Present: no acute distress - Respiratory Respiratory exam: Present: CTAB Additional comments: Breath sounds course throughout. FIO2 60% - Cardiovascular Cardiovascular exam: Present: +S1, +S2 - GI/Abdominal GI/Abdominal exam: Present: diminished bowel sounds, distended, soft - Additional comments: [place] with scant bloody output - Extremities Exam Additional comments: 1+ edema bilateral lower extremities - Neurological Exam Additional comments: remains sedated on vent - Skin Skin exam: Present: dry, warm Palliative Quality Palliative Quality: Screen for Code Status: Yes, Screen for Goals of Care: Yes, Screen for Pain: Yes, If Pain Regimen Started, Initiate Bowel Regimen: NA, Screen for Nausea/Vomitting: Yes Code Status: 06/04/16 01:31 CODE [Resuscitation Status: Active] [RES] Routine Comment: Resuscitation Status: DNR-Comfort Care-Arrest - Labs CBC & Chem 7: 06/07/16 04:20 06/07/16 04:20 Labs: Laboratory Results - last 24 hr 06/06/16 06/06/16 06/06/16 10:02 11:04 11:53 WBC RBC Hgb 14.1 Hct 44.3 MCV MCH MCHC RDW Plt Count MPV Immature Gran % Seg Neutrophils % Lymphocytes % Monocytes % Eosinophils % Basophils % Neutrophils # Lymphocytes # Monocytes # Eosinophils # Basophils # Nucleated RBCs/100 WBC PT INR ABG pH ABG pCO2 ABG pO2 ABG HCO3 ABG Total CO2 ABG O2 Saturation ABG Base Excess Respiration Rate Blood Gas Modality Inspired O2 Tidal Volume PEEP Sodium Potassium Chloride Carbon Dioxide BUN Creatinine Est GFR ( Amer) Est GFR (Non-Af Amer) BUN/Creatinine Ratio Glucose POC Glucose 177 H 173 H Calculated Osmolality Calcium Magnesium Vancomycin Trough 06/06/16 06/06/16 06/06/16 11:58 12:10 13:06 WBC RBC Hgb Hct MCV MCH MCHC RDW Plt Count MPV Immature Gran % Seg Neutrophils % Lymphocytes % Monocytes % Eosinophils % Basophils % Neutrophils # Lymphocytes # Monocytes # Eosinophils # Basophils # Nucleated RBCs/100 WBC PT INR ABG pH 7.29 L ABG pCO2 52 H ABG pO2 80 L ABG HCO3 25.0 ABG Total CO2 26.6 H ABG O2 Saturation 94 L ABG Base Excess -2.4 L Respiration Rate Blood Gas Modality VC+ Inspired O2 100 Tidal Volume PEEP Sodium Potassium Chloride Carbon Dioxide BUN Creatinine Est GFR ( Amer) Est GFR (Non-Af Amer) BUN/Creatinine Ratio Glucose POC Glucose 157 H 136 H Calculated Osmolality Calcium Magnesium Vancomycin Trough 06/06/16 06/06/16 06/06/16 13:57 14:56 15:59 WBC RBC Hgb Hct MCV MCH MCHC RDW Plt Count MPV Immature Gran % Seg Neutrophils % Lymphocytes % Monocytes % Eosinophils % Basophils % Neutrophils # Lymphocytes # Monocytes # Eosinophils # Basophils # Nucleated RBCs/100 WBC PT INR ABG pH ABG pCO2 ABG pO2 ABG HCO3 ABG Total CO2 ABG O2 Saturation ABG Base Excess Respiration Rate Blood Gas Modality Inspired O2 Tidal Volume PEEP Sodium Potassium Chloride Carbon Dioxide BUN Creatinine Est GFR ( Amer) Est GFR (Non-Af Amer) BUN/Creatinine Ratio Glucose POC Glucose 139 H 139 H 139 H Calculated Osmolality Calcium Magnesium Vancomycin Trough 06/06/16 06/06/16 06/06/16 16:59 18:01 18:56 WBC RBC Hgb Hct MCV MCH MCHC RDW Plt Count MPV Immature Gran % Seg Neutrophils % Lymphocytes % Monocytes % Eosinophils % Basophils % Neutrophils # Lymphocytes # Monocytes # Eosinophils # Basophils # Nucleated RBCs/100 WBC PT INR ABG pH ABG pCO2 ABG pO2 ABG HCO3 ABG Total CO2 ABG O2 Saturation ABG Base Excess Respiration Rate Blood Gas Modality Inspired O2 Tidal Volume PEEP Sodium Potassium Chloride Carbon Dioxide BUN Creatinine Est GFR ( Amer) Est GFR (Non-Af Amer) BUN/Creatinine Ratio Glucose POC Glucose 145 H 142 H 164 H Calculated Osmolality Calcium Magnesium Vancomycin Trough 06/06/16 06/06/16 06/06/16 20:05 21:00 22:01 WBC RBC Hgb Hct MCV MCH MCHC RDW Plt Count MPV Immature Gran % Seg Neutrophils % Lymphocytes % Monocytes % Eosinophils % Basophils % Neutrophils # Lymphocytes # Monocytes # Eosinophils # Basophils # Nucleated RBCs/100 WBC PT INR ABG pH ABG pCO2 ABG pO2 ABG HCO3 ABG Total CO2 ABG O2 Saturation ABG Base Excess Respiration Rate Blood Gas Modality Inspired O2 Tidal Volume PEEP Sodium Potassium Chloride Carbon Dioxide BUN Creatinine Est GFR ( Amer) Est GFR (Non-Af Amer) BUN/Creatinine Ratio Glucose POC Glucose 150 H 149 H 146 H Calculated Osmolality Calcium Magnesium Vancomycin Trough 06/06/16 06/07/16 06/07/16 23:02 00:02 00:59 WBC RBC Hgb Hct MCV MCH MCHC RDW Plt Count MPV Immature Gran % Seg Neutrophils % Lymphocytes % Monocytes % Eosinophils % Basophils % Neutrophils # Lymphocytes # Monocytes # Eosinophils # Basophils # Nucleated RBCs/100 WBC PT INR ABG pH ABG pCO2 ABG pO2 ABG HCO3 ABG Total CO2 ABG O2 Saturation ABG Base Excess Respiration Rate Blood Gas Modality Inspired O2 Tidal Volume PEEP Sodium Potassium Chloride Carbon Dioxide BUN Creatinine Est GFR ( Amer) Est GFR (Non-Af Amer) BUN/Creatinine Ratio Glucose POC Glucose 135 H 129 H 125 H Calculated Osmolality Calcium Magnesium Vancomycin Trough 06/07/16 06/07/16 06/07/16 02:03 03:03 04:05 WBC RBC Hgb Hct MCV MCH MCHC RDW Plt Count MPV Immature Gran % Seg Neutrophils % Lymphocytes % Monocytes % Eosinophils % Basophils % Neutrophils # Lymphocytes # Monocytes # Eosinophils # Basophils # Nucleated RBCs/100 WBC PT INR ABG pH ABG pCO2 ABG pO2 ABG HCO3 ABG Total CO2 ABG O2 Saturation ABG Base Excess Respiration Rate Blood Gas Modality Inspired O2 Tidal Volume PEEP Sodium Potassium Chloride Carbon Dioxide BUN Creatinine Est GFR ( Amer) Est GFR (Non-Af Amer) BUN/Creatinine Ratio Glucose POC Glucose 132 H 142 H 133 H Calculated Osmolality Calcium Magnesium Vancomycin Trough 06/07/16 06/07/16 06/07/16 04:20 04:20 04:20 WBC 19.0 H RBC 5.23 H Hgb 14.8 Hct 44.3 MCV 84.7 MCH 28.3 MCHC 33.4 RDW 16.8 H Plt Count 148 MPV 13.0 H Immature Gran % 1.0 Seg Neutrophils % 84.5 Lymphocytes % 3.9 Monocytes % 10.5 Eosinophils % 0.0 Basophils % 0.1 Neutrophils # 16.1 H Lymphocytes # 0.7 Monocytes # 2.0 H Eosinophils # 0.0 Basophils # 0.0 Nucleated RBCs/100 WBC 0.5 H PT INR ABG pH ABG pCO2 ABG pO2 ABG HCO3 ABG Total CO2 ABG O2 Saturation ABG Base Excess Respiration Rate Blood Gas Modality Inspired O2 Tidal Volume PEEP Sodium 123 L Potassium 4.9 H Chloride 95 L Carbon Dioxide 20 BUN 36 H Creatinine 2.31 H Est GFR ( Amer) 26 L Est GFR (Non-Af Amer) 22 L BUN/Creatinine Ratio 16 Glucose 163 H POC Glucose Calculated Osmolality 268 L Calcium 9.1 Magnesium 2.2 Vancomycin Trough 15.9 06/07/16 06/07/16 06/07/16 04:20 04:35 05:02 WBC RBC Hgb Hct MCV MCH MCHC RDW Plt Count MPV Immature Gran % Seg Neutrophils % Lymphocytes % Monocytes % Eosinophils % Basophils % Neutrophils # Lymphocytes # Monocytes # Eosinophils # Basophils # Nucleated RBCs/100 WBC PT 16.4 H INR 1.5 ABG pH 7.36 ABG pCO2 41 ABG pO2 97 ABG HCO3 23.2 ABG Total CO2 24.5 ABG O2 Saturation 97 ABG Base Excess -2.2 L Respiration Rate 24 Blood Gas Modality VC Inspired O2 60 Tidal Volume 450 PEEP 8 Sodium Potassium Chloride Carbon Dioxide BUN Creatinine Est GFR ( Amer) Est GFR (Non-Af Amer) BUN/Creatinine Ratio Glucose POC Glucose 138 H Calculated Osmolality Calcium Magnesium Vancomycin Trough 06/07/16 06/07/16 06/07/16 06:02 07:02 07:52 WBC RBC Hgb Hct MCV MCH MCHC RDW Plt Count MPV Immature Gran % Seg Neutrophils % Lymphocytes % Monocytes % Eosinophils % Basophils % Neutrophils # Lymphocytes # Monocytes # Eosinophils # Basophils # Nucleated RBCs/100 WBC PT INR ABG pH ABG pCO2 ABG pO2 ABG HCO3 ABG Total CO2 ABG O2 Saturation ABG Base Excess Respiration Rate Blood Gas Modality Inspired O2 Tidal Volume PEEP Sodium Potassium Chloride Carbon Dioxide BUN Creatinine Est GFR ( Amer) Est GFR (Non-Af Amer) BUN/Creatinine Ratio Glucose POC Glucose 160 H 147 H 148 H Calculated Osmolality Calcium Magnesium Vancomycin Trough 06/07/16 09:04 WBC RBC Hgb Hct MCV MCH MCHC RDW Plt Count MPV Immature Gran % Seg Neutrophils % Lymphocytes % Monocytes % Eosinophils % Basophils % Neutrophils # Lymphocytes # Monocytes # Eosinophils # Basophils # Nucleated RBCs/100 WBC PT INR ABG pH ABG pCO2 ABG pO2 ABG HCO3 ABG Total CO2 ABG O2 Saturation ABG Base Excess Respiration Rate Blood Gas Modality Inspired O2 Tidal Volume PEEP Sodium Potassium Chloride Carbon Dioxide BUN Creatinine Est GFR ( Amer) Est GFR (Non-Af Amer) BUN/Creatinine Ratio Glucose POC Glucose 151 H Calculated Osmolality Calcium Magnesium Vancomycin Trough - Impressions Impressions Chest X-Ray 06/06/16 11:41 IMPRESSION: 1. ETT tip 2.4 cm above the bette. 2. Cardiomegaly with pulmonary edema and pleural effusions compatible with CHF. Left greater than right basilar opacities compatible atelectasis. D/ / Christiano Goldberg MD / Christiano Goldberg MD Interpreting Provider: Christiano Goldberg MD - ABG Interpretation ABG results: ABG ABG pH 7.36 pH Units (7.32-7.45) 06/07/16 04:35 ABG pCO2 41 mmHg (35-45) 06/07/16 04:35 ABG pO2 97 mmHg (85-104) 06/07/16 04:35 ABG O2 Saturation 97 % (95-98) 06/07/16 04:35 PT/INR, D-dimer PT 16.4 Seconds (9.4-12.1) H 06/07/16 04:20 Consult Discharge Plan - Plan Referrals: Giovanny Reardon MD [Primary Care Provider] -
[2016-06-07] MEDS: Insulin Human Regular 100 UNIT in 0.9 % Sodium Chloride 100 ML IVC SCH (10:06)
[2016-06-07] MEDS ORDERED: Vancomycin 1,000 MG in D5% in Water 250 ML IVPB ONE (11:00)
[2016-06-07] MEDS: Insulin LISPRO 300 UNITS/3 ML VIAL SQ SCH ×4 (11:38→23:22)
--- NOTE | 2016-06-07 12:19 | Cardiology Progress Note ---
Date of Encounter: 06/07/16 Time of Encounter: 10:00 Assessment and Plan (1) Heart failure, systolic and diastolic, acute on chronic Current Visit: No Status: Acute There has been an improvement in patient's oxygen requirements and is requiring less pressor agents. Dobutamine was also stopped due to tachycardic heart rates , now improved in the 's. Allison will be continued. (2) Atrial fibrillation Current Visit: No Status: Chronic Presently on amiodarone drip with improved heart rates. Dobutamine was stopped and patient is requiring only a small dose of levophed. Patient unable to be anticoagulated given presenting coagulopathy that has resolved, and now with hematuria. Qualifiers: Atrial fibrillation type: paroxysmal Qualified Code(s): I48.0 - Paroxysmal atrial fibrillation (3) Ischemic cardiomyopathy Current Visit: No Status: Chronic Patient with history of ischemic cardiomyopathy. She was on plavix as an outpatient with allergy to aspirin. Patient's antiplatelet has been held due to coagulopathy now with hematuria. Discussion w patient/family: I spoke with patient's today and updated him on her clinical course. I explained that there has been an incremental improvement in her oxygen requirements as well as hemodynamically. However, her kidney function continues to decline. He expressed understanding. He wants to continue the course and re-evaluate in the next 24h. He still expresses interest in keeping ICD functioning. Subjective Principal diagnosis: Shock, hyperkalemia, MINNIE, and acute on chronic respiratory failure Interval history: No acute overnight events. Patient's O2 requirements are improving and pressors are being weaned. Heart rates have improved. Objective Vital Signs, Last 4 Hours Temp Pulse Resp BP Pulse Ox 06/07/16 12:00 97.6 F 86 22 90/60 96 06/07/16 11:29 22 95 06/07/16 11:00 76 22 90/63 95 06/07/16 10:58 22 96 06/07/16 10:00 93 22 84/57 96 06/07/16 09:00 90 22 91/63 96 General: Other (intubated, sedated) HEENT: Atraumatic, Other (ETT in place) Cardiac: Other (irregularly irregular, no new murmur) Lungs: Other (diminished breath sounds) Neuro: Other (intubated, sedated) Abdomen: Soft, Other (soft bowel sounds present) Extremities: Other (2+ bilateral LE edema) Results 06/07/16 04:20 06/07/16 04:20 Lab Results 06/07/16 06/07/16 06/07/16 04:20 04:20 04:20 WBC 19.0 H Hgb 14.8 Hct 44.3 Plt Count 148 INR 1.5 Sodium 123 L Potassium 4.9 H Chloride 95 L Carbon Dioxide 20 BUN 36 H Creatinine 2.31 H Glucose 163 H Calcium 9.1 Magnesium 2.2 - EKG Interpretation EKG results cardiology: other (Telemetry demonstrates average HR 92 bpm, no concerning dysrhythmia) Consult Discharge Plan - Plan Referrals: Giovanny Reardon MD [Primary Care Provider] -
[2016-06-07] MEDS: *HR* Heparin 5,000 UNIT/ML VIAL SQ SCH ×2 (12:51→23:08)
[2016-06-07 16:58] LABS: Albumin 2.9 g/dL (3.5-5.0); Albumin/Globulin Ratio 0.7 (1.1-2.2); Bilirubin,Direct 1.3 mg/dL (0.0-0.5); Bilirubin,Indirect 0.6 mg/dL (0.0-1.2); Bilirubin,Total 1.9 mg/dL (0.2-1.2); Globulin 4.4 g/dL (2.4-3.5); Total Protein 7.3 g/dL (6.0-8.3)
[2016-06-07] MEDS ORDERED: 0.9 % Sodium Chloride 2,000 ML ONE (22:18)
[2016-06-07] MEDS: *HR* Heparin 5,000 UNIT/ML VIAL IV PRN ×2 (23:08→23:09)
[2016-06-08] MEDS ORDERED: 0.9 % Sodium Chloride 2,000 ML ONE (00:02)
[2016-06-08] MEDS ORDERED: *HR* Heparin 5,000 UNIT/ML VIAL ONE ×2 (00:05→11:41)
[2016-06-08] MEDS ORDERED: 0.9 % Sodium Chloride 250 ML ONE (00:09)
[2016-06-08] MEDS: *HR* Heparin 5,000 UNIT/ML VIAL IV PRN ×3 (00:26→12:18)
[2016-06-08] MEDS: PrismaSATE BGK 4/2.5 5,000 ML CRRT SCH ×6 (00:36→20:50)
[2016-06-08] MEDS: Vasopressin 40 UNIT in D5% in Water 100 ML IVC SCH (02:10)
[2016-06-08] MEDS: Ipratropium/Albuterol Neb 3 ML IH SCH ×6 (03:37→23:16)
[2016-06-08] MEDS: Norepinephrine 8 MG in D5% in Water 500 ML IVC SCH ×2 (03:56→22:27)
[2016-06-08] MEDS: Amiodarone Premix 360 MG/200 ML BAG IVC SCH ×2 (03:56→15:39)
[2016-06-08] MEDS: Lacri-Lube 3.5 GM TUBE BOTH EYES SCH ×5 (03:59→20:41)
[2016-06-08] MEDS: Insulin LISPRO 300 UNITS/3 ML VIAL SQ SCH ×5 (03:59→20:42)
[2016-06-08 04:29] LABS: Basophils % 0.2 %; Hemoglobin 14.8 g/dL (11.5-15.4); Lymphocytes % 3.8 %
[2016-06-08 04:31] LABS: Hematocrit 45.2 % (35.3-44.9); Immature Granulocytes % 1.1 % (0-4); Mean Corpuscular HGB Conc 32.7 g/dL (31.6-35.5); Mean Corpuscular Hemoglobin 27.6 pg (28.0-33.3); Mean Corpuscular Volume 84.3 fL (83.0-100.0); Monocytes # 2.5 K/mcL (0.0-1.3); Monocytes % 12.7 %; Nucleated Red Blood Cells 0.8 /100 WBC (0); Platelet Count 129 K/mcL (140-400); Red Blood Count 5.36 M/mcL (3.82-4.97); Segmented Neutrophils % 82.2 %
[2016-06-08 04:35] LABS: INR 1.4; Prothrombin Time 15.1 Seconds (9.4-12.1)
[2016-06-08 04:43] LABS: Albumin 2.5 g/dL (3.5-5.0); Calcium 8.9 mg/dL (8.6-10.8); Phosphorous 3.6 mg/dL (2.3-4.7); Potassium 4.9 mEq/L (3.5-4.5)
[2016-06-08 04:44] LABS: Magnesium 2.2 mg/dL (1.6-2.6); Potassium 4.8 mEq/L (3.5-4.5)
[2016-06-08 04:48] LABS: Lymphocytes # 0.7 K/mcL (0.6-4.6)
[2016-06-08 04:50] LABS: Anisocytosis 1+ (Not Present); Platelet Estimate Decreased (Normal); Polychromasia 1+ (Not Present)
[2016-06-08 05:04] LABS: ABG Base Excess -2.3 mEq/L (-2.0 to 3.0); ABG HCO3 23.7 mEQ/L (21-27); ABG Oxygen Saturation 94 % (95-98); ABG PCO2 44 mmHg (35-45); ABG PH 7.34 pH Units (7.32-7.45); ABG PO2 77 mmHg (85-104); ABG TCO2 25.1 mEq/L (20-26); Blood Gas FiO2 50 %; Blood Gas PEEP 8 cm H2O
[2016-06-08] MEDS: Famotidine 20 MG/2 ML VIAL IVP SCH (05:06)
[2016-06-08] MEDS: *HR* Heparin 5,000 UNIT/ML VIAL SQ SCH ×3 (05:06→22:41)
--- NOTE | 2016-06-08 06:58 | Pulmonology Progress Note ---
<Adrian Dennis - Last Filed: 06/08/16 11:15> Date of Encounter: 06/07/16 Time of Encounter: 06:58 Assessment and Plan (1) Shock Current Visit: Yes Status: Acute Cardiogenic and/or septic, patient has ischemic cardiomyopathy with EF 10-15%, ICD in place, still on Levophed, and vasopressin IV drip, MAP is around 62 this AM, holding off of fluid removal from Allison this AM for low BP, low albumin, 25 gm of IV albumin x1 given this AM, currently on vancomycin and Levaquin IV for possible hospital-acquired bacterial pneumonia but will stop vanco today, all culture negative, overall poor prognosis, palliative team has been consulted , her code status has been changed to DNR CCA, will con't to closely monitor her in ICU. (2) Acute on chronic respiratory failure with hypoxia and hypercapnia Current Visit: Yes Status: Acute Repeated ABG this AM showed slight decrease in pH and increase in pCO2, no significant changes, curently on FIO2 to 50%, RR 22 and PEEP of 8, acute on chronic respiratory failure likely multifactorial secondary to underlying bacterial pneumonia, acute exacerbation of COPD, acute on chronic systolic CHF along with acute renal failure. Continue to treat underlying causes with Allison , mechanical ventilation, IV steroid and antibiotics. (3) Ischemic cardiomyopathy Current Visit: Yes Status: Acute Previous echo on December 2015 showed left ventricular ejection fraction 15-20% with global left ventricular systolic dysfunction and severely dilated left ventricle, ICD in place, spoke to textile screen maker today, will put her back on dobutamine drip concerning her renal function, HR stable, MAP is around 65 on levophed and vasopressin drip, overall poor prognosis, palliative team has been consulted and cardio has been following. Con't to closely monitor VS in ICU. (4) Bacterial pneumonia Current Visit: Yes Status: Acute Recently discharged from this hospital on 05/15/2016 community-acquired pneumonia, she was discharged on Levaquin however it was switched to doxycycline , this time she came back with acute on chronic respiratory failure, possible underlying septic shock therefore she was started on vancomycin and Levaquin IV for possible hospital-acquired bacterial pneumonia from previous admission, all cultures negative, no fever, stable leukocytosis, will d/c vanco today, con't levaquin for two more days. (5) Acute kidney injury Current Visit: Yes Status: Acute This could be secondary to cardiorenal with a history of ischemic cardiomyopathy and/or prerenal from septic shock, nephrology has been consulted , renal function is worse than yesterday, nephrology note reviewed, they will con't with current Allison setting, will follow their recommendations. (6) Hyponatremia Current Visit: Yes Status: Acute Sodiums level improved, hx with of ischemic cardiomyopathy and pedal pitting edema, worsening renal function, possible underlying hypotonic hypervoleic hyponatremia, nephrology has been following, no change in Allison setting today, will follow their recommendations. (7) Hyperkalemia Current Visit: Yes Status: Acute This is likely secondary to acute renal failure, patient was started on Allison over the weekend, potassium level improved to 4.9, nephrology has been following , continue to closely monitor her potassium level. (8) Acute exacerbation of chronic obstructive airways disease Current Visit: Yes Status: Acute Extensive hx of smoking, this could be contributing to her acute on chronic respiratory failure picture, con't duoneb, IV steroid, oxygen support and IV abx. (9) Atrial fibrillation with RVR Current Visit: Yes Status: Acute Tikosyn is on hold now, currently on amiodarone drip, HR has improved, cardio has been following, Eliquis is on hold now for hematuria, vit K IV x3, INR is down to 1.4. (10) Hyperglycemia Current Visit: Yes Status: Acute Last A1C was 6.7 on 11/20/2013, now on IV steroid, decreased dosage, glucose has been stable, currently on SQ insulin. (11) DVT prophylaxis Current Visit: Yes Status: Acute Heparin SQ TID. Subjective Principal diagnosis: Shock, hyperkalemia, MINNIE, and acute on chronic respiratory failure Interval history: This is a 56 years old female with history of severe chronic systolic CHF, ischemic cardiomyopathy EF 10-15% with ICD, atrial fibrillation, COPD, cardiac cirrhosis and CAD, who presented to the ER with progressively worsening of shortness of breath, hypotension, acute kidney injury and hyperkalemia, subsequently patient was intubated and transferred to ICU. Patient seen and examined. No acute events overnight, total urine output is 10 mL over the last 24 hours and it is still bloody, heart rate has been stable with amiodarone drip, currently she is on Levophed and vasopressin IV for hypotension, MAP is around 62 this AM. Objective PUL Vital signs: Last Vital Signs Temp 97.6 F 06/08/16 04:00 Pulse 103 06/08/16 06:00 Resp 22 06/08/16 06:00 BP 84/51 06/08/16 06:00 Pulse Ox 94 L 06/08/16 06:00 General appearance: no acute distress, other (On IV sedation) Eyes: nonicteric ENT: oropharynx moist Neck: supple Effort: normal Auscultation: bilateral: rales (Slightly at base) Cardiovascular: irregular rhythm (Heart rate is normal) Gastrointestinal: normoactive bowel sounds, soft, non-distended Integumentary: normal Extremities: no cyanosis, edema (+2 pitting pedal bilateral) Musculoskeletal: no deformities pupils equal and round, other (On IV sedation) Ventilator Settings Ventilator Settings: Ventilator Settings, Last 8 Hours Ventilator Mode VC+ Ventilator Mode VC+ Ventilator Mode VC+ Ventilator Mode VC+ Ventilator Mode VC+ Ventilator Mode VC+ Ventilator Mode VC+ Ventilator Mode VC+ Ventilator Mode VC+ Ventilator Mode VC+ Ventilator Mode VC+ Ventilator Mode VC+ Ventilator Mode VC+ Ventilator Tidal Volume 450 Setting Ventilator Tidal Volume 450 Setting Ventilator Tidal Volume 450 Setting Ventilator Tidal Volume 450 Setting Ventilator Tidal Volume 450 Setting Ventilator Tidal Volume 450 Setting Ventilator Tidal Volume 450 Setting Ventilator Tidal Volume 450 Setting Ventilator Tidal Volume 450 Setting Ventilator Tidal Volume 450 Setting Ventilator Tidal Volume 450 Setting Ventilator Tidal Volume 450 Setting Ventilator Tidal Volume 450 Setting Ventilator Respiratory Rate 22 Setting Ventilator Respiratory Rate 22 Setting Ventilator Respiratory Rate 22 Setting Ventilator Respiratory Rate 22 Setting Ventilator Respiratory Rate 22 Setting Ventilator Respiratory Rate 22 Setting Ventilator Respiratory Rate 22 Setting Ventilator Respiratory Rate 22 Setting Ventilator Respiratory Rate 22 Setting Ventilator Respiratory Rate 22 Setting Ventilator Respiratory Rate 22 Setting Ventilator Respiratory Rate 22 Setting Ventilator Respiratory Rate 22 Setting Actual Respiratory Rate 24 Actual Respiratory Rate 25 Actual Respiratory Rate 23 Actual Respiratory Rate 22 Positive End Expiratory 8 Pressure Positive End Expiratory 8 Pressure Positive End Expiratory 8 Pressure Positive End Expiratory 8 Pressure Positive End Expiratory 8 Pressure Positive End Expiratory 8 Pressure Positive End Expiratory 8 Pressure Positive End Expiratory 8 Pressure Positive End Expiratory 8 Pressure Positive End Expiratory 8 Pressure Positive End Expiratory 8 Pressure Positive End Expiratory 8 Pressure Positive End Expiratory 8 Pressure Peak Inspiratory Airway 33 Pressure Peak Inspiratory Airway 30 Pressure Peak Inspiratory Airway 33 Pressure Peak Inspiratory Airway 30 Pressure Results - Laboratory Findings CBC and BMP: 06/08/16 04:13 06/08/16 04:13 ABG ABG pH 7.34 pH Units (7.32-7.45) 06/08/16 04:55 ABG pCO2 44 mmHg (35-45) 06/08/16 04:55 ABG pO2 77 mmHg (85-104) L 06/08/16 04:55 ABG O2 Saturation 94 % (95-98) L 06/08/16 04:55 PT/INR, D-dimer PT 15.1 Seconds (9.4-12.1) H 06/08/16 04:13 Abnormal lab findings: Abnormal lab results WBC 19.5 K/mcL (4.3-11.1) H 06/08/16 04:13 RBC 5.36 M/mcL (3.82-4.97) H 06/08/16 04:13 Hct 45.2 % (35.3-44.9) H 06/08/16 04:13 MCH 27.6 pg (28.0-33.3) L 06/08/16 04:13 RDW 17.0 % (11.5-14.5) H 06/08/16 04:13 Plt Count 129 K/mcL (140-400) L 06/08/16 04:13 Neutrophils # 16.0 K/mcL (1.6-8.9) H 06/08/16 04:13 Monocytes # 2.5 K/mcL (0.0-1.3) H 06/08/16 04:13 Nucleated RBCs/100 WBC 0.8 /100 WBC (0) H 06/08/16 04:13 Platelet Estimate Decreased (Normal) L 06/08/16 04:13 Immature Plt Fraction 23.0 % (1.1-6.1) H 06/08/16 04:13 Polychromasia 1+ (Not Present) A 06/08/16 04:13 Anisocytosis 1+ (Not Present) A 06/08/16 04:13 PT 15.1 Seconds (9.4-12.1) H 06/08/16 04:13 APTT 38.6 Seconds (26.0-36.0) H 06/05/16 03:45 ABG pO2 77 mmHg (85-104) L 06/08/16 04:55 ABG O2 Saturation 94 % (95-98) L 06/08/16 04:55 ABG Base Excess -2.3 mEq/L (-2.0 to 3.0) L 06/08/16 04:55 Sodium 127 mEq/L (136-145) L 06/08/16 04:13 Potassium 4.8 mEq/L (3.5-4.5) H 06/08/16 04:13 Chloride 97 mEq/L (98-109) L 06/08/16 04:13 BUN 48 mg/dL (7-20) H D 06/08/16 04:13 Creatinine 2.61 mg/dL (0.57-1.11) H 06/08/16 04:13 Est GFR ( Amer) 23 (> 60) L 06/08/16 04:13 Est GFR (Non-Af Amer) 19 (> 60) L 06/08/16 04:13 Glucose 171 mg/dL (70-99) H 06/08/16 04:13 POC Glucose 140 (58-89) H 06/08/16 03:45 Total Bilirubin 1.9 mg/dL (0.2-1.2) H 06/07/16 04:20 Direct Bilirubin 1.3 mg/dL (0.0-0.5) H 06/07/16 04:20 AST 71 Units/L (5-34) H 06/07/16 04:20 B-Natriuretic Peptide 1350 pg/mL (0-100) H 06/04/16 03:35 Albumin 2.5 g/dL (3.5-5.0) L 06/08/16 04:13 Globulin 4.4 g/dL (2.4-3.5) H 06/07/16 04:20 Albumin/Globulin Ratio 0.7 (1.1-2.2) L 06/07/16 04:20 HDL Cholesterol 15 mg/dL (40-59) L 06/04/16 03:35 TSH 6.183 mcIU/mL (0.350-4.840) H 06/03/16 21:07 Urine Blood Moderate (Negative) H 06/04/16 06:30 Ur Leukocyte Esterase Trace (Negative) H 06/04/16 06:30 Urine Microscopic RBC 15-30 per hpf (0-3) H 06/04/16 06:30 Urine Microscopic WBC 5-15 per hpf (0-3) H 06/04/16 06:30 Ur Squamous Epith Cells Many per lpf (None-Few) H 06/04/16 06:30 Ur Culture Indicated? YES (NO) A 06/04/16 06:30 Vancomycin Trough 21.4 mcg/mL (10-20) H* 06/08/16 04:13 - Microbiology Findings Microbiology Findings: Microbiology, Last 48 Hours 06/05/16 11:07 Blood Culture - Preliminary Peripheral Venipuncture No growth. 06/05/16 10:51 Blood Culture - Preliminary Peripheral Venipuncture No growth. 06/04/16 08:35 Blood Culture - Preliminary Peripheral Venipuncture No growth. 06/05/16 13:30 Urine Culture - Final Urine,Catheterized No growth. 06/04/16 09:40 Sputum Culture - Final Sputum - Clinical Findings Intake & Output: Intake & Output 06/07/16 06/07/16 06/08/16 15:59 23:59 07:59 Intake Total 915.5 / 915.5 333 / 333 971 / 971 Output Total 1495 / 1495 1277 / 1277 1022 / 1022 Balance -579.5 / -579.5 -944 / -944 -51 / -51 Weight 90.4 kg Consult Discharge Plan - Plan Referrals: Giovanny Reardon MD [Primary Care Provider] - <Jamal Katz W - Last Filed: 06/08/16 15:58> Date of Encounter: 06/07/16 Objective PUL Vital signs: Last Vital Signs Temp 98.0 F 06/08/16 13:00 Pulse 94 06/08/16 14:00 Resp 24 06/08/16 14:16 BP 87/51 06/08/16 14:16 Pulse Ox 92 L 06/08/16 14:16 Ventilator Settings Ventilator Settings: Ventilator Settings, Last 8 Hours Ventilator Mode VC+ Ventilator Mode VC+ Ventilator Mode VC+ Ventilator Mode VC+ Ventilator Mode VC+ Ventilator Mode VC+ Ventilator Mode VC+ Ventilator Mode VC+ Ventilator Mode VC+ Ventilator Mode VC+ Ventilator Mode VC+ Ventilator Mode VC+ Ventilator Tidal Volume 450 Setting Ventilator Tidal Volume 450 Setting Ventilator Tidal Volume 450 Setting Ventilator Tidal Volume 450 Setting Ventilator Tidal Volume 450 Setting Ventilator Tidal Volume 450 Setting Ventilator Tidal Volume 450 Setting Ventilator Tidal Volume 450 Setting Ventilator Tidal Volume 450 Setting Ventilator Tidal Volume 450 Setting Ventilator Tidal Volume 450 Setting Ventilator Tidal Volume 450 Setting Ventilator Respiratory Rate 22 Setting Ventilator Respiratory Rate 22 Setting Ventilator Respiratory Rate 22 Setting Ventilator Respiratory Rate 22 Setting Ventilator Respiratory Rate 22 Setting Ventilator Respiratory Rate 22 Setting Ventilator Respiratory Rate 22 Setting Ventilator Respiratory Rate 22 Setting Ventilator Respiratory Rate 22 Setting Ventilator Respiratory Rate 22 Setting Ventilator Respiratory Rate 22 Setting Ventilator Respiratory Rate 22 Setting Actual Respiratory Rate 24 Actual Respiratory Rate 22 Actual Respiratory Rate 22 Actual Respiratory Rate 24 Actual Respiratory Rate 22 Actual Respiratory Rate 22 Actual Respiratory Rate 22 Actual Respiratory Rate 22 Actual Respiratory Rate 22 Actual Respiratory Rate 22 Actual Respiratory Rate 22 Actual Respiratory Rate 23 Positive End Expiratory 5 Pressure Positive End Expiratory 5 Pressure Positive End Expiratory 5 Pressure Positive End Expiratory 5 Pressure Positive End Expiratory 5 Pressure Positive End Expiratory 5 Pressure Positive End Expiratory 5 Pressure Positive End Expiratory 5 Pressure Positive End Expiratory 8 Pressure Positive End Expiratory 8 Pressure Positive End Expiratory 8 Pressure Positive End Expiratory 8 Pressure Peak Inspiratory Airway 23 Pressure Peak Inspiratory Airway 28 Pressure Peak Inspiratory Airway 23 Pressure Peak Inspiratory Airway 24 Pressure Peak Inspiratory Airway 24 Pressure Peak Inspiratory Airway 24 Pressure Peak Inspiratory Airway 23 Pressure Peak Inspiratory Airway 32 Pressure Peak Inspiratory Airway 36 Pressure Peak Inspiratory Airway 36 Pressure Peak Inspiratory Airway 37 Pressure Peak Inspiratory Airway 31 Pressure Results - Laboratory Findings CBC and BMP: 06/08/16 04:13 06/08/16 04:13 ABG ABG pH 7.34 pH Units (7.32-7.45) 06/08/16 04:55 ABG pCO2 44 mmHg (35-45) 06/08/16 04:55 ABG pO2 77 mmHg (85-104) L 06/08/16 04:55 ABG O2 Saturation 94 % (95-98) L 06/08/16 04:55 PT/INR, D-dimer PT 15.1 Seconds (9.4-12.1) H 06/08/16 04:13 Abnormal lab findings: Abnormal lab results WBC 19.5 K/mcL (4.3-11.1) H 06/08/16 04:13 RBC 5.36 M/mcL (3.82-4.97) H 06/08/16 04:13 Hct 45.2 % (35.3-44.9) H 06/08/16 04:13 MCH 27.6 pg (28.0-33.3) L 06/08/16 04:13 RDW 17.0 % (11.5-14.5) H 06/08/16 04:13 Plt Count 129 K/mcL (140-400) L 06/08/16 04:13 Neutrophils # 16.0 K/mcL (1.6-8.9) H 06/08/16 04:13 Monocytes # 2.5 K/mcL (0.0-1.3) H 06/08/16 04:13 Nucleated RBCs/100 WBC 0.8 /100 WBC (0) H 06/08/16 04:13 Platelet Estimate Decreased (Normal) L 06/08/16 04:13 Immature Plt Fraction 23.0 % (1.1-6.1) H 06/08/16 04:13 Polychromasia 1+ (Not Present) A 06/08/16 04:13 Anisocytosis 1+ (Not Present) A 06/08/16 04:13 PT 15.1 Seconds (9.4-12.1) H 06/08/16 04:13 APTT 38.6 Seconds (26.0-36.0) H 06/05/16 03:45 ABG pO2 77 mmHg (85-104) L 06/08/16 04:55 ABG O2 Saturation 94 % (95-98) L 06/08/16 04:55 ABG Base Excess -2.3 mEq/L (-2.0 to 3.0) L 06/08/16 04:55 Sodium 127 mEq/L (136-145) L 06/08/16 04:13 Potassium 4.8 mEq/L (3.5-4.5) H 06/08/16 04:13 Chloride 97 mEq/L (98-109) L 06/08/16 04:13 BUN 48 mg/dL (7-20) H D 06/08/16 04:13 Creatinine 2.61 mg/dL (0.57-1.11) H 06/08/16 04:13 Est GFR ( Amer) 23 (> 60) L 06/08/16 04:13 Est GFR (Non-Af Amer) 19 (> 60) L 06/08/16 04:13 Glucose 171 mg/dL (70-99) H 06/08/16 04:13 POC Glucose 215 (58-89) H 06/08/16 12:27 Total Bilirubin 1.9 mg/dL (0.2-1.2) H 06/07/16 04:20 Direct Bilirubin 1.3 mg/dL (0.0-0.5) H 06/07/16 04:20 AST 71 Units/L (5-34) H 06/07/16 04:20 B-Natriuretic Peptide 1350 pg/mL (0-100) H 06/04/16 03:35 Albumin 2.5 g/dL (3.5-5.0) L 06/08/16 04:13 Globulin 4.4 g/dL (2.4-3.5) H 06/07/16 04:20 Albumin/Globulin Ratio 0.7 (1.1-2.2) L 06/07/16 04:20 HDL Cholesterol 15 mg/dL (40-59) L 06/04/16 03:35 TSH 6.183 mcIU/mL (0.350-4.840) H 06/03/16 21:07 Urine Blood Moderate (Negative) H 06/04/16 06:30 Ur Leukocyte Esterase Trace (Negative) H 06/04/16 06:30 Urine Microscopic RBC 15-30 per hpf (0-3) H 06/04/16 06:30 Urine Microscopic WBC 5-15 per hpf (0-3) H 06/04/16 06:30 Ur Squamous Epith Cells Many per lpf (None-Few) H 06/04/16 06:30 Ur Culture Indicated? YES (NO) A 06/04/16 06:30 Vancomycin Trough 21.4 mcg/mL (10-20) H* 06/08/16 04:13 - Microbiology Findings Microbiology Findings: Microbiology, Last 48 Hours 06/05/16 11:07 Blood Culture - Preliminary Peripheral Venipuncture No growth. 06/05/16 10:51 Blood Culture - Preliminary Peripheral Venipuncture No growth. - Clinical Findings Intake & Output: Intake & Output 06/07/16 06/08/16 06/08/16 23:59 07:59 15:59 Intake Total 333 / 333 1241 / 1241 521 / 521 Output Total 1277 / 1277 1192 / 1192 877 / 877 Balance -944 / -944 49 / 49 -356 / -356 Weight 90.4 kg - Attending Attestation I examined this patient and my medical decision-making was reviewed with the FIRE BEHAVIOR ANALYST/PA/Advanced Practice Nurse/Resident Physician. I agree with the documented findings, disposition and treatment plan as described except to the extent set forth below. I spent 35min of Critical Care time with this patient. It involved decision making of high complexity to assess, manipulate, and support vital organ system failure and/or to prevent further life threatening deterioration of the patient' s condition. The time involved in the performance of separately reportable procedures was not counted toward critical care time. Patient seen and examined at bedside Labs, radiology, chart personally reviewed. All lines examined without evidence of infection. Neuropsych: intuabted and sedated. Mental status less responsive today but PEERL and no focal weakness detected on exam. cont fentanyl. as needed for pain. Still has respods to voice Pulm: hypoxic hypercapnic respiratory failure s/t to pulmonary edema stable. PEEP now at 5 Fio2 40% with acceptable oxygenation and ventilation Cards: cardiogenic shock likely complicaed by distributive shock. with severe underlying Ischemic Cardiomyopathy leading to MOSF overall worse contractility Cardiology recs to resume inotropic support so will rial dobumatine over next 24 hours. . FEN-GI: Cont enteral feedings. increase bowel regimen. cont ppi prophylaxis. stable Hyponatremia (hypervolemic) Renal: Anuric MINNIE with volume overload. CONT CVVH stop removal at present for worsening hypotension. ID: Stop Vanc (trough 20) cont Levaquin for 7 days. Heme/Onc: Coagulopathy has resolved. H/H stable. stable mild hemturia. cont DVT prophylaxis Endo: Wean stress dose hydrocortisone monitor glucose, hyperglycemia start basal bolus insulin Integ/MSK: skin care per ICU protocol CODE: DNRCC I discussed the case with the and daughter at bedside for approximately 20 minutes with the nurse also present family is concerned that overall clinical course has deteriorated slightly from yesterday I explained that still too early to call this a futile case however if she continues to deteriorate may recommend switching to comfort measures which they were in agreement with.
--- NOTE | 2016-06-08 08:14 | Nephrology Progress Note ---
Date of Encounter: 06/07/16 Time of Encounter: 08:05 - Assessment and Plan (1) MINNIE (acute kidney injury) Current Visit: No Status: Acute A/P- Respiratory failure, cardiogenic shock r/t severe systolic dysfunction. Sedated/intubated on vent, on multiple pressors. MINNIE on known mild CKD in setting of chronic NSAID use with recent baseline creat 1.2. Creat worse than yesterday, 2.61. Urine output 20cc, hematuric. Will continue Allison at current settings. Palliative care on board. Subjective Principal diagnosis: Shock, hyperkalemia, MINNIE, and acute on chronic respiratory failure Interval history: Intubated/sedated on vent, FIO2 50%, multiple pressors Objective - Vital Signs Vital signs: Vital Signs Temp Pulse Resp BP Pulse Ox 06/08/16 07:52 22 91/48 94 L 06/08/16 07:45 93 06/08/16 07:00 98 24 91/56 94 L 06/08/16 06:00 103 22 84/51 94 L 06/08/16 05:47 24 97/63 95 06/08/16 05:00 91 23 90/57 94 L 06/08/16 04:00 97.6 F 89 25 90/59 95 06/08/16 03:37 25 95/54 94 L 06/08/16 03:00 89 23 105/61 95 06/08/16 02:00 86 23 92/62 95 06/08/16 01:47 23 101/61 95 06/08/16 01:00 89 22 111/62 96 06/08/16 00:00 97.2 F L 77 22 128/75 96 06/07/16 23:23 22 85/53 96 06/07/16 23:00 80 22 73/49 96 06/07/16 22:00 79 22 111/48 98 06/07/16 21:32 22 83/52 98 06/07/16 21:00 82 22 88/52 97 06/07/16 20:00 96.3 F L 84 22 84/55 97 06/07/16 19:44 22 86/55 98 06/07/16 19:00 86 22 78/55 98 06/07/16 18:00 84 22 86/57 98 06/07/16 17:00 91 22 88/63 98 06/07/16 16:00 85 22 93/65 98 06/07/16 15:33 23 96 06/07/16 15:00 97.5 F L 92 22 90/59 95 06/07/16 14:00 93 23 96/66 95 06/07/16 13:53 22 96 06/07/16 13:00 82 22 93/63 96 06/07/16 12:00 97.6 F 86 22 90/60 96 06/07/16 11:29 22 95 06/07/16 11:00 76 22 90/63 95 06/07/16 10:58 22 96 06/07/16 10:00 93 22 84/57 96 06/07/16 09:00 90 22 91/63 96 Intake and Output 06/07/16 06/08/16 06/08/16 23:59 07:59 15:59 Intake Total 333 / 333 1241 / 1241 Output Total 1277 / 1277 1192 / 1192 Balance -944 / -944 49 / 49 Intake: IV Fluids 161 / 161 935 / 935 PrismaSATE BGK 4/2.5 5, 0 / 0 000 ML @ 1000 mls/hr CRRT CONT [facility]1983 Rx#:[id number] Amiodarone 360mg/200mL 210 / 210 Drip Premix 360 mg In 200 ml @ 0.5 MG/MIN 16.667 mls/hr IVC CONT [facility]–1983 Rx#: [id number] FentaNYL (PF) 1,000 MCG 25 / 25 75 / 75 In 0.9 % Sodium Chloride 80 ML @ 25 MCG/HR 2.5 mls /hr IVC CONT [facility] Rx#: [id number] Versed 50 MG In 0.9 % 0 / 0 Sodium Chloride 90 ML @ 0 .2 MG/HR 0.4 mls/hr IVC CONT [facility] Rx#:[id number] Levophed 8 MG In Dextrose 60 / 60 591 / 591 5% 500 ML @ 5 MCG/MIN 19 .05 mls/hr IVC CONT [facility] Rx#:[id number] Vasostrict 40 UNIT In 59 / 59 Dextrose 5% 100 ML @ 0.03 UNIT/MIN 4.59 mls/hr IVC .[id number] [facility]LEN[facility] Rx#: [id number] Tube Feeding 172 / 172 306 / 306 Output: Urine 0 / 0 Allison 1272 / 1272 1192 / 1192 Catheter 5 / 5 0 / 0 Other: Weight 90.4 kg Blood Glucose* 140 140 Patient Weight 06/08/16 23:59 Weight 90.4 kg - General Appearance General appearance: Present: chronically ill, sedated on ventilator EENT: Present: mucous membranes moist Neck: Present: no JVD Respiratory: Present: clear Cardiology: Present: edema, irregular rhythm Additional Comments: generalized, pitting LE Gastrointestinal: Present: hypoactive bowel sounds Integumentary: Present: warm and dry - Lab 06/08/16 04:13 06/08/16 04:13 Most recent lab results ABG pH 7.34 pH Units (7.32-7.45) 06/08/16 04:55 ABG pCO2 44 mmHg (35-45) 06/08/16 04:55 ABG pO2 77 mmHg (85-104) L 06/08/16 04:55 ABG HCO3 23.7 mEQ/L (21-27) 06/08/16 04:55 ABG O2 Saturation 94 % (95-98) L 06/08/16 04:55 Calcium 9.0 mg/dL (8.6-10.8) 06/08/16 04:13 Phosphorus 3.6 mg/dL (2.3-4.7) 06/08/16 04:13 Magnesium 2.2 mg/dL (1.6-2.6) 06/08/16 04:13 Consult Discharge Plan - Plan Referrals: Giovanny Reardon MD [Primary Care Provider] -
[2016-06-08] MEDS ORDERED: Albumin 25% 25gram/100mL 25 GM/100 ML IV.SOLN IVPB ONE (08:41)
[2016-06-08] MEDS: Levofloxacin 500 MG/100 ML 500 MG/100 ML BAG IVPB SCH (08:42)
[2016-06-08] MEDS: Chlorhexidine Rinse 15 ML MOUTHWASH MM SCH ×2 (08:42→20:41)
[2016-06-08] MEDS: Hydrocortisone Sodium Succ 100 MG/2 ML VIAL IVP SCH ×2 (08:42→15:39)
[2016-06-08] MEDS ORDERED: Bisacodyl 10 MG RECTAL SUPPOSITORY RC ONE (10:25)
[2016-06-08] MEDS: FentaNYL (PF) 1,000 MCG in 0.9 % Sodium Chloride 80 ML IVC SCH (11:16)
[2016-06-08] MEDS ORDERED: 0.9 % Sodium Chloride 1,000 ML ONE ×4 (11:29→14:18)
--- NOTE | 2016-06-08 12:44 | Cardiology Progress Note ---
Date of Encounter: 06/07/16 Time of Encounter: 10:00 Assessment and Plan (1) Heart failure, systolic and diastolic, acute on chronic Current Visit: No Status: Acute Patient's ability to compensate hemodynamically is complicated by her poor cardiac output. I have considered restarting dobutamine to help augment forward flow. This was discussed with ICU team. (2) Atrial fibrillation Current Visit: No Status: Chronic Presently on amiodarone drip with stable heart rates in the 80 to 90's. Patient is unable to be anticoagulated given presenting coagulopathy and hematuria. Qualifiers: Atrial fibrillation type: paroxysmal Qualified Code(s): I48.0 - Paroxysmal atrial fibrillation (3) Ischemic cardiomyopathy Current Visit: No Status: Chronic Patient with history of ischemic cardiomyopathy. Patient's antiplatelet has been held due to coagulopathy now with hematuria. Discussion w patient/family: I spoke with patient's and daughter's today and updated them on her clinical course. Unfortunately, she is not showing signs of significant improvement and her overall prognosis is poor. I also discussed her case with ICU team. We will continue to support her and observe for improvements over the next few days. Her family appears realistic and is ready to transition to a palliative mode if there are no signs of recovery over the next few days. Subjective Principal diagnosis: Shock, hyperkalemia, MINNIE, and acute on chronic respiratory failure Interval history: No acute overnight events. No significant improvement in overall status. Haven 't been able continue weaning pressors. Renal function is worsening. Heart rates are stable. Objective Vital Signs, Last 4 Hours Temp Pulse Resp BP Pulse Ox 06/08/16 12:09 23 92/55 95 06/08/16 11:13 22 102/61 96 06/08/16 11:00 86 22 107/61 96 06/08/16 10:25 22 93/59 99 06/08/16 10:00 97.7 F 83 22 96/61 98 06/08/16 09:00 86 22 86/54 97 General: Other (Intubated, sedated) HEENT: Atraumatic, Other (ETT tube in place) Cardiac: No Murmur, Other Lungs: Other (diminished breath sounds) Neuro: Other (intubated, sedated) Abdomen: Soft, Other (soft bowel sounds) Extremities: Other (2+ pitting edema bilteral LE's) Results 06/08/16 04:13 06/08/16 04:13 Lab Results 06/07/16 06/08/16 06/08/16 04:20 04:13 04:13 WBC 19.5 H Hgb 14.8 Hct 45.2 H Plt Count 129 L INR 1.4 Sodium Potassium Chloride Carbon Dioxide BUN Creatinine Glucose Calcium Magnesium Total Bilirubin 1.9 H AST 71 H ALT 20 Alkaline Phosphatase 123 06/08/16 06/08/16 04:13 04:13 WBC Hgb Hct Plt Count INR Sodium 127 L 126 L Potassium 4.8 H 4.9 H Chloride 97 L 97 L Carbon Dioxide 19 18 L BUN 48 H D 48 H Creatinine 2.61 H 2.61 H Glucose 171 H 171 H Calcium 9.0 8.9 Magnesium 2.2 Total Bilirubin AST ALT Alkaline Phosphatase - EKG Interpretation EKG results cardiology: other (24h telemetry reviewed; average heart rate 80-90' s, no significant dysrhythmia) Consult Discharge Plan - Plan Referrals: Giovanny Reardon MD [Primary Care Provider] -
[2016-06-08 17:57] LABS: ABG Base Excess -3.2 mEq/L (-2.0 to 3.0); ABG HCO3 22.7 mEQ/L (21-27); ABG Oxygen Saturation 94 % (95-98); ABG PCO2 43 mmHg (35-45); ABG PH 7.33 pH Units (7.32-7.45); ABG PO2 78 mmHg (85-104); Blood Gas FiO2 50 %; Blood Gas Respiration Rate 22; Blood Gas VT 450 cc
[2016-06-08 19:58] LABS: Basophils % 0.1 %; Hematocrit 40.9 % (35.3-44.9); Mean Corpuscular HGB Conc 32.3 g/dL (31.6-35.5)
[2016-06-08 20:00] LABS: Hemoglobin 13.2 g/dL (11.5-15.4); Immature Granulocytes % 1.1 % (0-4); Immature Platelets 23.1 % (1.1-6.1); Lymphocytes # 0.8 K/mcL (0.6-4.6); Lymphocytes % 5.5 %; Mean Corpuscular Hemoglobin 27.1 pg (28.0-33.3); Monocytes # 1.4 K/mcL (0.0-1.3); Monocytes % 9.9 %; Neutrophils # 11.5 K/mcL (1.6-8.9); Nucleated Red Blood Cells 0.4 /100 WBC (0); Red Blood Count 4.87 M/mcL (3.82-4.97); Red Cell Distribution Width 16.4 % (11.5-14.5); Segmented Neutrophils % 83.4 %
[2016-06-08 20:09] LABS: Calcium 8.4 mg/dL (8.6-10.8); Potassium 4.4 mEq/L (3.5-4.5)
[2016-06-08 20:24] LABS: Platelet Count 73 K/mcL (140-400)
[2016-06-08 20:28] LABS: Large Platelets Present (Not Present); Platelet Estimate Decreased (Normal)
[2016-06-08 20:29] LABS: Acanthocytes 1+ (Not Present); Microcytosis Present (Not Present); Ovalocytes 1+ (Not Present); Polychromasia 1+ (Not Present)
[2016-06-08 20:30] LABS: Poikilocytosis 1+ (Not Present)
[2016-06-09] MEDS: Hydrocortisone Sodium Succ 100 MG/2 ML VIAL IVP SCH ×3 (00:41→16:33)
[2016-06-09] MEDS: Lacri-Lube 3.5 GM TUBE BOTH EYES SCH ×6 (00:42→20:35)
[2016-06-09] MEDS: Insulin LISPRO 300 UNITS/3 ML VIAL SQ SCH ×6 (00:42→20:35)
[2016-06-09] MEDS: *HR* Midazolam HCl 2 MG/2 ML VIAL IVP PRN ×3 (03:41→21:09)
[2016-06-09] MEDS: PrismaSATE BGK 4/2.5 5,000 ML CRRT SCH ×5 (03:43→23:06)
[2016-06-09] MEDS: Amiodarone Premix 360 MG/200 ML BAG IVC SCH ×2 (03:46→15:53)
[2016-06-09 04:32] LABS: ABG Base Excess -5.3 mEq/L (-2.0 to 3.0); ABG HCO3 21.2 mEQ/L (21-27); ABG Oxygen Saturation 97 % (95-98); ABG PCO2 44 mmHg (35-45); ABG PH 7.29 pH Units (7.32-7.45); ABG PO2 102 mmHg (85-104); ABG TCO2 22.6 mEq/L (20-26)
[2016-06-09 04:33] LABS: Basophils % 0.2 %; Eosinophils % 0.1 %
[2016-06-09 04:35] LABS: Blood Gas FiO2 50 %
[2016-06-09 04:35] LABS: Hematocrit 40.4 % (35.3-44.9); Hemoglobin 13.2 g/dL (11.5-15.4); Immature Granulocytes % 1.3 % (0-4); Immature Platelets 27.9 % (1.1-6.1); Lymphocytes # 0.7 K/mcL (0.6-4.6); Mean Corpuscular HGB Conc 32.7 g/dL (31.6-35.5); Mean Corpuscular Hemoglobin 27.3 pg (28.0-33.3); Mean Corpuscular Volume 83.6 fL (83.0-100.0); Monocytes # 1.9 K/mcL (0.0-1.3); Monocytes % 10.9 %; Neutrophils # 14.3 K/mcL (1.6-8.9); Nucleated Red Blood Cells 0.2 /100 WBC (0); Red Blood Count 4.83 M/mcL (3.82-4.97); Red Cell Distribution Width 16.5 % (11.5-14.5); Segmented Neutrophils % 83.5 %
[2016-06-09] MEDS: Norepinephrine 8 MG in D5% in Water 500 ML IVC SCH ×3 (04:36→20:35)
[2016-06-09 05:00] LABS: Calcium 8.6 mg/dL (8.6-10.8); Magnesium 2.3 mg/dL (1.6-2.6); Potassium 4.4 mEq/L (3.5-4.5)
[2016-06-09] MEDS: Ipratropium/Albuterol Neb 3 ML IH SCH ×5 (05:01→20:09)
[2016-06-09] MEDS: Famotidine 20 MG/2 ML VIAL IVP SCH (05:12)
[2016-06-09 05:23] LABS: Platelet Count 73 K/mcL (140-400)
[2016-06-09] MEDS: *HR* Heparin 5,000 UNIT/ML VIAL SQ SCH ×2 (06:04→10:26)
--- NOTE | 2016-06-09 06:57 | Pulmonology Progress Note ---
<Adrian Dennis - Last Filed: 06/09/16 11:06> Date of Encounter: 06/09/16 Time of Encounter: 06:57 Assessment and Plan (1) Shock Current Visit: Yes Status: Acute Cardiogenic and/or septic, patient has ischemic cardiomyopathy with EF 10-15%, ICD in place, still on Levophed, and vasopressin IV drip, MAP is around 62 this AM, just removing amount of fluid we put in through [facility] for low BP, switched to cefepime from levaquin today for possibility of underlying UTI, urine culture pending, received vanco/levaquin for last several days, all culture negative so far, overall poor prognosis, palliative team has been consulted, her code status has been changed to DNR CCA, if no improvement in next few days , possible withdraw of care per family members, will con't to closely monitor her in ICU. (2) Acute on chronic respiratory failure with hypoxia and hypercapnia Current Visit: Yes Status: Acute Repeated ABG this AM showed slight decrease in pH and increase in pCO2, no significant changes, curently on FIO2 to 50%, RR 22 and PEEP of 5, acute on chronic respiratory failure likely multifactorial secondary to underlying bacterial pneumonia, acute exacerbation of COPD, acute on chronic systolic CHF along with acute renal failure. Continue to treat underlying causes with [facility] , mechanical ventilation, IV steroid and antibiotic. (3) Leukocytosis Current Visit: Yes Status: Acute Worse than yesterday, temp was down to 96.3F this AM, vanco IV was stopped yesterday, today will switch to cefepime IV from levaquin for possibility of underlying UTI, will obtain urine culture today, all cultures have been negative so far, con't to monitor her labs and VS. Qualifiers: Qualified Code(s): D72.829 - Elevated white blood cell count, unspecified (4) Thrombocytopenia Current Visit: Yes Status: Acute Platelet dropped more than 1/2 from 148 to 73 from 06/07 to 06/08, she has been getting heparin through [facility] more than 5 days since this admission, her thrombocytopenia could be from ongoing infection but HIT cannot be ruled out yet , will obtain PF4 antibody and fibrinogen level today, will stop heparin SQ today, con't to monitor her labs. (5) Ischemic cardiomyopathy Current Visit: Yes Status: Acute Previous echo on December 2015 showed left ventricular ejection fraction 15-20% with global left ventricular systolic dysfunction and severely dilated left ventricle, ICD in place, titrate dobutamine drip, HR stable, MAP is around 65 on levophed and vasopressin drip, overall poor prognosis, palliative team has been consulted and cardio has been following. Con't to closely monitor VS in ICU. (6) Acute kidney injury Current Visit: Yes Status: Acute This could be secondary to cardiorenal with a history of ischemic cardiomyopathy and/or prerenal from septic shock, nephrology has been consulted , renal function is slightly better than yesterday, con't with current [facility] setting, will follow their recommendations. (7) Hyponatremia Current Visit: Yes Status: Acute Sodiums level stable, hx with of ischemic cardiomyopathy and pedal pitting edema , worsening renal function, possible underlying hypotonic hypervoleic hyponatremia, nephrology has been following, no change in [facility] setting, will follow their recommendations. (8) Acute exacerbation of chronic obstructive airways disease Current Visit: Yes Status: Acute Extensive hx of smoking, this could be contributing to her acute on chronic respiratory failure picture, con't duoneb, IV steroid, oxygen support and IV abx. (9) Atrial fibrillation with RVR Current Visit: Yes Status: Acute Tikosyn is on hold now, currently on amiodarone drip, HR has improved, cardio has been following, Eliquis is on hold now for hematuria. (10) Hyperglycemia Current Visit: Yes Status: Acute Last A1C was 6.7 on 11/20/2013, now on IV steroid, decreased dosage, hyperglycemic, currently on SQ insulin, will add basal today. (11) DVT prophylaxis Current Visit: Yes Status: Acute IPC. Subjective Principal diagnosis: Shock, hyperkalemia, MINNIE, and acute on chronic respiratory failure Interval history: This is a 56 years old female with history of severe chronic systolic CHF, ischemic cardiomyopathy EF 10-15% with ICD, atrial fibrillation, COPD, cardiac cirrhosis and CAD, who presented to the ER with progressively worsening of shortness of breath, hypotension, acute kidney injury and hyperkalemia, subsequently patient was intubated and transferred to ICU. Patient seen and examined. No acute events overnight, total urine output is 80 mL over the last 24 hours and it is still bloody, heart rate has been stable with amiodarone drip, currently she is on Levophed and vasopressin IV for hypotension, MAP is around 68 this AM. Objective PUL Vital signs: Last Vital Signs Temp 96.3 F L 06/09/16 04:00 Pulse 77 06/09/16 06:00 Resp 23 06/09/16 06:00 BP 88/50 06/09/16 06:00 Pulse Ox 95 06/09/16 06:00 General appearance: no acute distress, other (On IV sedation) Eyes: nonicteric ENT: oropharynx moist Neck: supple Effort: normal Auscultation: bilateral: rales (at base slightly) Cardiovascular: irregular rhythm (normal HR) Gastrointestinal: normoactive bowel sounds, soft, non-distended Integumentary: normal Extremities: no cyanosis, edema (+2 pitting pedal b/l) Musculoskeletal: no deformities pupils equal and round, other (On IV sedations) Ventilator Settings Ventilator Settings: Ventilator Settings, Last 8 Hours Ventilator Mode VC+ Ventilator Mode VC+ Ventilator Mode VC+ Ventilator Mode VC+ Ventilator Mode VC+ Ventilator Mode VC+ Ventilator Mode VC+ Ventilator Mode VC+ Ventilator Mode VC+ Ventilator Mode VC+ Ventilator Mode VC+ Ventilator Mode VC+ Ventilator Tidal Volume 450 Setting Ventilator Tidal Volume 450 Setting Ventilator Tidal Volume 450 Setting Ventilator Tidal Volume 450 Setting Ventilator Tidal Volume 450 Setting Ventilator Tidal Volume 450 Setting Ventilator Tidal Volume 450 Setting Ventilator Tidal Volume 450 Setting Ventilator Tidal Volume 450 Setting Ventilator Tidal Volume 450 Setting Ventilator Tidal Volume 450 Setting Ventilator Tidal Volume 450 Setting Ventilator Respiratory Rate 22 Setting Ventilator Respiratory Rate 22 Setting Ventilator Respiratory Rate 22 Setting Ventilator Respiratory Rate 22 Setting Ventilator Respiratory Rate 22 Setting Ventilator Respiratory Rate 22 Setting Ventilator Respiratory Rate 22 Setting Ventilator Respiratory Rate 22 Setting Ventilator Respiratory Rate 22 Setting Ventilator Respiratory Rate 22 Setting Ventilator Respiratory Rate 22 Setting Ventilator Respiratory Rate 22 Setting Actual Respiratory Rate 23 Actual Respiratory Rate 23 Actual Respiratory Rate 22 Actual Respiratory Rate 23 Actual Respiratory Rate 27 Actual Respiratory Rate 26 Actual Respiratory Rate 23 Actual Respiratory Rate 23 Actual Respiratory Rate 23 Actual Respiratory Rate 24 Actual Respiratory Rate 23 Positive End Expiratory 5 Pressure Positive End Expiratory 5 Pressure Positive End Expiratory 5 Pressure Positive End Expiratory 5 Pressure Positive End Expiratory 5 Pressure Positive End Expiratory 5 Pressure Positive End Expiratory 5 Pressure Positive End Expiratory 5 Pressure Positive End Expiratory 5 Pressure Positive End Expiratory 5 Pressure Positive End Expiratory 5 Pressure Positive End Expiratory 5 Pressure Peak Inspiratory Airway 27 Pressure Peak Inspiratory Airway 27 Pressure Peak Inspiratory Airway 24 Pressure Peak Inspiratory Airway 26 Pressure Peak Inspiratory Airway 26 Pressure Peak Inspiratory Airway 11 Pressure Peak Inspiratory Airway 25 Pressure Peak Inspiratory Airway 26 Pressure Peak Inspiratory Airway 23 Pressure Peak Inspiratory Airway 27 Pressure Peak Inspiratory Airway 25 Pressure Results - Laboratory Findings CBC and BMP: 06/09/16 04:19 06/09/16 04:19 ABG ABG pH 7.29 pH Units (7.32-7.45) L 06/09/16 04:15 ABG pCO2 44 mmHg (35-45) 06/09/16 04:15 ABG pO2 102 mmHg (85-104) 06/09/16 04:15 ABG O2 Saturation 97 % (95-98) 06/09/16 04:15 PT/INR, D-dimer PT 15.1 Seconds (9.4-12.1) H 06/08/16 04:13 Abnormal lab findings: Abnormal lab results WBC 17.1 K/mcL (4.3-11.1) H 06/09/16 04:19 MCH 27.3 pg (28.0-33.3) L 06/09/16 04:19 RDW 16.5 % (11.5-14.5) H 06/09/16 04:19 Plt Count 73 K/mcL (140-400) L 06/09/16 04:19 Neutrophils # 14.3 K/mcL (1.6-8.9) H 06/09/16 04:19 Monocytes # 1.9 K/mcL (0.0-1.3) H 06/09/16 04:19 Nucleated RBCs/100 WBC 0.2 /100 WBC (0) H 06/09/16 04:19 Platelet Estimate Decreased (Normal) L 06/08/16 19:49 Large Platelets Present (Not Present) A 06/08/16 19:49 Immature Plt Fraction 27.9 % (1.1-6.1) H 06/09/16 04:19 Polychromasia 1+ (Not Present) A 06/08/16 19:49 Poikilocytosis 1+ (Not Present) A 06/08/16 19:49 Anisocytosis 1+ (Not Present) A 06/08/16 04:13 Microcytosis Present (Not Present) A 06/08/16 19:49 Ovalocytes 1+ (Not Present) A 06/08/16 19:49 Acanthocytes (Spur) 1+ (Not Present) A 06/08/16 19:49 PT 15.1 Seconds (9.4-12.1) H 06/08/16 04:13 APTT 38.6 Seconds (26.0-36.0) H 06/05/16 03:45 ABG pH 7.29 pH Units (7.32-7.45) L 06/09/16 04:15 ABG Base Excess -5.3 mEq/L (-2.0 to 3.0) L 06/09/16 04:15 Sodium 126 mEq/L (136-145) L 06/09/16 04:19 Chloride 96 mEq/L (98-109) L 06/09/16 04:19 BUN 54 mg/dL (7-20) H 06/09/16 04:19 Creatinine 2.50 mg/dL (0.57-1.11) H 06/09/16 04:19 Est GFR ( Amer) 24 (> 60) L 06/09/16 04:19 Est GFR (Non-Af Amer) 20 (> 60) L 06/09/16 04:19 Glucose 219 mg/dL (70-99) H 06/09/16 04:19 POC Glucose 208 (58-89) H 06/08/16 23:46 Total Bilirubin 1.9 mg/dL (0.2-1.2) H 06/07/16 04:20 Direct Bilirubin 1.3 mg/dL (0.0-0.5) H 06/07/16 04:20 AST 71 Units/L (5-34) H 06/07/16 04:20 B-Natriuretic Peptide 1350 pg/mL (0-100) H 06/04/16 03:35 Albumin 2.5 g/dL (3.5-5.0) L 06/08/16 04:13 Globulin 4.4 g/dL (2.4-3.5) H 06/07/16 04:20 Albumin/Globulin Ratio 0.7 (1.1-2.2) L 06/07/16 04:20 HDL Cholesterol 15 mg/dL (40-59) L 06/04/16 03:35 TSH 6.183 mcIU/mL (0.350-4.840) H 06/03/16 21:07 Urine Blood Moderate (Negative) H 06/04/16 06:30 Ur Leukocyte Esterase Trace (Negative) H 06/04/16 06:30 Urine Microscopic RBC 15-30 per hpf (0-3) H 06/04/16 06:30 Urine Microscopic WBC 5-15 per hpf (0-3) H 06/04/16 06:30 Ur Squamous Epith Cells Many per lpf (None-Few) H 06/04/16 06:30 Ur Culture Indicated? YES (NO) A 06/04/16 06:30 Vancomycin Trough 21.4 mcg/mL (10-20) H* 06/08/16 04:13 - Microbiology Findings Microbiology Findings: Microbiology, Last 48 Hours 06/05/16 11:07 Blood Culture - Preliminary Peripheral Venipuncture No growth. 06/05/16 10:51 Blood Culture - Preliminary Peripheral Venipuncture No growth. - Clinical Findings Intake & Output: Intake & Output 06/08/16 06/08/16 06/09/16 15:59 23:59 07:59 Intake Total 854 / 854 614 / 614 1221 / 1221 Output Total 1078 / 1078 1562 / 1562 1239 / 1239 Balance -224 / -224 -948 / -948 -18 / -18 Weight 90 kg Consult Discharge Plan - Plan Referrals: Giovanny Reardon MD [Primary Care Provider] - <Jamal Katz W - Last Filed: 06/09/16 12:15> Date of Encounter: 06/09/16 Objective PUL Vital signs: Last Vital Signs Temp 97.5 F L 06/09/16 08:05 Pulse 84 06/09/16 08:05 Resp 26 06/09/16 08:29 BP 94/55 06/09/16 08:29 Pulse Ox 93 L 06/09/16 08:29 Ventilator Settings Ventilator Settings: Ventilator Settings, Last 8 Hours Ventilator Mode VC+ Ventilator Mode VC+ Ventilator Mode VC+ Ventilator Mode VC+ Ventilator Mode VC+ Ventilator Mode VC+ Ventilator Mode VC+ Ventilator Mode VC+ Ventilator Mode VC+ Ventilator Mode VC+ Ventilator Tidal Volume 450 Setting Ventilator Tidal Volume 450 Setting Ventilator Tidal Volume 450 Setting Ventilator Tidal Volume 450 Setting Ventilator Tidal Volume 450 Setting Ventilator Tidal Volume 450 Setting Ventilator Tidal Volume 450 Setting Ventilator Tidal Volume 450 Setting Ventilator Tidal Volume 450 Setting Ventilator Tidal Volume 450 Setting Ventilator Respiratory Rate 22 Setting Ventilator Respiratory Rate 22 Setting Ventilator Respiratory Rate 22 Setting Ventilator Respiratory Rate 22 Setting Ventilator Respiratory Rate 22 Setting Ventilator Respiratory Rate 22 Setting Ventilator Respiratory Rate 22 Setting Ventilator Respiratory Rate 22 Setting Ventilator Respiratory Rate 22 Setting Ventilator Respiratory Rate 22 Setting Actual Respiratory Rate 23 Actual Respiratory Rate 22 Actual Respiratory Rate 23 Actual Respiratory Rate 23 Actual Respiratory Rate 23 Actual Respiratory Rate 22 Actual Respiratory Rate 23 Actual Respiratory Rate 27 Actual Respiratory Rate 26 Positive End Expiratory 5 Pressure Positive End Expiratory 5 Pressure Positive End Expiratory 5 Pressure Positive End Expiratory 5 Pressure Positive End Expiratory 5 Pressure Positive End Expiratory 5 Pressure Positive End Expiratory 5 Pressure Positive End Expiratory 5 Pressure Positive End Expiratory 5 Pressure Positive End Expiratory 5 Pressure Peak Inspiratory Airway 29 Pressure Peak Inspiratory Airway 27 Pressure Peak Inspiratory Airway 27 Pressure Peak Inspiratory Airway 27 Pressure Peak Inspiratory Airway 27 Pressure Peak Inspiratory Airway 24 Pressure Peak Inspiratory Airway 26 Pressure Peak Inspiratory Airway 26 Pressure Peak Inspiratory Airway 11 Pressure Results - Laboratory Findings CBC and BMP: 06/09/16 04:19 06/09/16 04:19 ABG ABG pH 7.29 pH Units (7.32-7.45) L 06/09/16 04:15 ABG pCO2 44 mmHg (35-45) 06/09/16 04:15 ABG pO2 102 mmHg (85-104) 06/09/16 04:15 ABG O2 Saturation 97 % (95-98) 06/09/16 04:15 PT/INR, D-dimer PT 15.1 Seconds (9.4-12.1) H 06/08/16 04:13 Abnormal lab findings: Abnormal lab results WBC 17.1 K/mcL (4.3-11.1) H 06/09/16 04:19 MCH 27.3 pg (28.0-33.3) L 06/09/16 04:19 RDW 16.5 % (11.5-14.5) H 06/09/16 04:19 Plt Count 73 K/mcL (140-400) L 06/09/16 04:19 Neutrophils # 14.3 K/mcL (1.6-8.9) H 06/09/16 04:19 Monocytes # 1.9 K/mcL (0.0-1.3) H 06/09/16 04:19 Nucleated RBCs/100 WBC 0.2 /100 WBC (0) H 06/09/16 04:19 Platelet Estimate Decreased (Normal) L 06/08/16 19:49 Large Platelets Present (Not Present) A 06/08/16 19:49 Immature Plt Fraction 27.9 % (1.1-6.1) H 06/09/16 04:19 Polychromasia 1+ (Not Present) A 06/08/16 19:49 Poikilocytosis 1+ (Not Present) A 06/08/16 19:49 Anisocytosis 1+ (Not Present) A 06/08/16 04:13 Microcytosis Present (Not Present) A 06/08/16 19:49 Ovalocytes 1+ (Not Present) A 06/08/16 19:49 Acanthocytes (Spur) 1+ (Not Present) A 06/08/16 19:49 PT 15.1 Seconds (9.4-12.1) H 06/08/16 04:13 APTT 38.6 Seconds (26.0-36.0) H 06/05/16 03:45 ABG pH 7.29 pH Units (7.32-7.45) L 06/09/16 04:15 ABG Base Excess -5.3 mEq/L (-2.0 to 3.0) L 06/09/16 04:15 Sodium 126 mEq/L (136-145) L 06/09/16 04:19 Chloride 96 mEq/L (98-109) L 06/09/16 04:19 BUN 54 mg/dL (7-20) H 06/09/16 04:19 Creatinine 2.50 mg/dL (0.57-1.11) H 06/09/16 04:19 Est GFR ( Amer) 24 (> 60) L 06/09/16 04:19 Est GFR (Non-Af Amer) 20 (> 60) L 06/09/16 04:19 Glucose 219 mg/dL (70-99) H 06/09/16 04:19 POC Glucose 160 (58-89) H 06/09/16 07:43 Total Bilirubin 1.9 mg/dL (0.2-1.2) H 06/07/16 04:20 Direct Bilirubin 1.3 mg/dL (0.0-0.5) H 06/07/16 04:20 AST 71 Units/L (5-34) H 06/07/16 04:20 B-Natriuretic Peptide 1350 pg/mL (0-100) H 06/04/16 03:35 Albumin 2.5 g/dL (3.5-5.0) L 06/08/16 04:13 Globulin 4.4 g/dL (2.4-3.5) H 06/07/16 04:20 Albumin/Globulin Ratio 0.7 (1.1-2.2) L 06/07/16 04:20 HDL Cholesterol 15 mg/dL (40-59) L 06/04/16 03:35 TSH 6.183 mcIU/mL (0.350-4.840) H 06/03/16 21:07 Urine Blood Moderate (Negative) H 06/04/16 06:30 Ur Leukocyte Esterase Trace (Negative) H 06/04/16 06:30 Urine Microscopic RBC 15-30 per hpf (0-3) H 06/04/16 06:30 Urine Microscopic WBC 5-15 per hpf (0-3) H 06/04/16 06:30 Ur Squamous Epith Cells Many per lpf (None-Few) H 06/04/16 06:30 Ur Culture Indicated? YES (NO) A 06/04/16 06:30 Vancomycin Trough 21.4 mcg/mL (10-20) H* 06/08/16 04:13 - Microbiology Findings Microbiology Findings: Microbiology, Last 48 Hours 06/05/16 11:07 Blood Culture - Preliminary Peripheral Venipuncture No growth. 06/05/16 10:51 Blood Culture - Preliminary Peripheral Venipuncture No growth. - Clinical Findings Intake & Output: Intake & Output 06/08/16 06/09/16 06/09/16 23:59 07:59 15:59 Intake Total 614 / 614 1341 / 1341 0 / 0 Output Total 1562 / 1562 1408 / 1408 179 / 179 Balance -948 / -948 -67 / -67 -179 / -179 Weight 90 kg - Attending Attestation I examined this patient and my medical decision-making was reviewed with the DYE STAND LOADER/PA/Advanced Practice Nurse/Resident Physician. I agree with the documented findings, disposition and treatment plan as described except to the extent set forth below. I spent 35min of Critical Care time with this patient. It involved decision making of high complexity to assess, manipulate, and support vital organ system failure and/or to prevent further life threatening deterioration of the patient' s condition. The time involved in the performance of separately reportable procedures was not counted toward critical care time. Patient seen and examined at bedside Labs, radiology, chart personally reviewed. All lines examined without evidence of infection. Neuropsych: intuabted and sedated. Overal more responsive today but unable to follow commands consistently. Pulm: hypoxic hypercapnic respiratory failure s/t to pulmonary edema stable. PEEP now at 5 Fio2 40% with acceptable oxygenation and ventilation Cards: cardiogenic shock likely complicaed by distributive shock. with severe underlying Ischemic Cardiomyopathy leading to MOSF continues to decline. Had dobutmiane trial over last 24 hours without significant improvment will stop. cont vasopressors. goal MAP >60 FEN-GI: Cont enteral feedings. increase bowel regimen. cont ppi prophylaxis. stable Hyponatremia (hypervolemic) Renal: Anuric MINNIE with volume overload. CONT CVVH stop removal at present for worsening hypotension. ID: Stop Vanc (trough 20) recultured Urine. Start Cefepime for possible new infection/sepsis ?UTI. (hypotension, hypothermia, rising WBC count) Heme/Onc: . H/H stable. Thrombocytopenia likely DIC vs MOSF vs less likely HIT. Stop heparin prophylaxis send PF4. stable DVT prophylaxis with SCDs Endo: Cont to wean stress dose hydrocortisone monitor glucose, hyperglycemia start basal bolus insulin Integ/MSK: skin care per ICU protocol CODE: [id number] Family Updated at bedside.
[2016-06-09] MEDS: Vasopressin 40 UNIT in D5% in Water 100 ML IVC SCH (07:05)
[2016-06-09] MEDS: Chlorhexidine Rinse 15 ML MOUTHWASH MM SCH ×2 (08:52→20:34)
[2016-06-09] MEDS: Bisacodyl 10 MG RECTAL SUPPOSITORY RC SCH (08:52)
[2016-06-09] MEDS ORDERED: 0.9 % Sodium Chloride 2,000 ML ONE (08:56)
[2016-06-09] MEDS ORDERED: *HR* Heparin 5,000 UNIT/ML VIAL ONE (09:01)
[2016-06-09] MEDS ORDERED: 0.9 % Sodium Chloride 500 ML ONE (09:25)
[2016-06-09] MEDS: FentaNYL (PF) 1,000 MCG in 0.9 % Sodium Chloride 80 ML IVC SCH ×2 (10:06→18:16)
[2016-06-09] MEDS: Cefepime HCl 2,000 MG in D5% in Water (Mini-Bag+) 100 ML IVPB SCH ×2 (10:09→16:32)
--- NOTE | 2016-06-09 11:32 | Nephrology Progress Note ---
Date of Encounter: 06/09/16 Time of Encounter: 11:20 - Assessment and Plan (1) MINNIE (acute kidney injury) Current Visit: No Status: Acute A/P- Respiratory failure, cardiogenic shock r/t severe systolic dysfunction. Sedated/intubated on vent, on multiple pressors. MINNIE on known mild CKD in setting of chronic NSAID use with recent baseline creat 1.2. Creat plateaued, 2.50. Urine output 82cc, hematuric. Will continue Allison at current settings. Palliative care on board. Subjective Principal diagnosis: Shock, hyperkalemia, MINNIE, and acute on chronic respiratory failure Interval history: Intubated/sedated on vent, FIO2 50%, multiple pressors Objective - Vital Signs Vital signs: Vital Signs Temp Pulse Resp BP Pulse Ox 06/09/16 11:00 80 26 92/52 95 06/09/16 10:03 88 26 85/52 95 06/09/16 09:00 86 26 89/56 95 06/09/16 08:29 26 94/55 93 L 06/09/16 08:05 97.5 F L 79 22 88/51 95 06/09/16 07:00 79 23 96/54 95 06/09/16 06:00 77 23 88/50 95 06/09/16 05:02 23 94 L 06/09/16 05:00 89 22 83/53 94 L 06/09/16 04:00 96.3 F L 87 23 93/53 95 06/09/16 03:00 87 27 94/56 92 L 06/09/16 02:00 89 26 94/59 93 L 06/09/16 01:03 24 95 06/09/16 01:00 84 23 103/52 95 06/09/16 00:00 96.5 F L 81 23 100/56 96 06/08/16 23:17 23 95 06/08/16 23:00 76 23 98/49 95 06/08/16 22:00 86 22 90/45 95 06/08/16 21:39 23 95 06/08/16 21:00 82 22 91/47 95 06/08/16 20:00 97.7 F 87 22 91/52 94 L 06/08/16 19:34 22 95 06/08/16 19:00 85 22 83/48 95 06/08/16 18:00 85 22 91/46 95 06/08/16 17:11 23 84/51 94 L 06/08/16 17:00 87 22 87/52 95 06/08/16 16:00 97.8 F 82 24 91/50 94 L 06/08/16 15:27 24 81/48 93 L 06/08/16 15:19 91 06/08/16 15:00 91 22 87/51 94 L 06/08/16 14:16 24 87/51 92 L 06/08/16 14:00 94 23 72/44 93 L 06/08/16 13:00 98.0 F 96 22 86/43 93 L 06/08/16 12:09 23 92/55 95 06/08/16 12:00 86 22 84/52 94 L Intake and Output 06/08/16 06/09/16 06/09/16 23:59 07:59 15:59 Intake Total 614 / 614 1341 / 1341 300 / 300 Output Total 1562 / 1562 1408 / 1408 362 / 362 Balance -948 / -948 -67 / -67 -62 / -62 Intake: IV Fluids 250 / 250 988 / 988 300 / 300 Amiodarone 360mg/200mL 200 / 200 Drip Premix 360 mg In 200 ml @ 0.5 MG/MIN 16.667 mls/hr IVC CONT [facility] Rx#: [id number] DOBUTamine 250 MG/250 ML 250 / 250 200 / 200 100 / 100 D5W 250 mg In 250 ml @ 5 MCG/KG/MIN 27.12 mls/hr IVC .[id number] [facility] Rx#: [id number] FentaNYL (PF) 1,000 MCG 100 / 100 In 0.9 % Sodium Chloride 80 ML @ 25 MCG/HR 2.5 mls /hr IVC CONT [facility] Rx#: [id number] Levophed 8 MG In Dextrose 508 / 508 0 / 0 5% 500 ML @ 5 MCG/MIN 19 .05 mls/hr IVC CONT [facility] Rx#:[id number] Vasostrict 40 UNIT In 80 / 80 Dextrose 5% 100 ML @ 0.03 UNIT/MIN 4.59 mls/hr IVC .[id number] [facility] Rx#: [id number] Maxipime 2,000 MG In 100 / 100 Dextrose 5% (Minibag+) 100 ML 100 ML @ 200 mls/ hr IVPB Q12HR [facility] Rx#: [id number] Tube Feeding 364 / 364 353 / 353 Free Water Intake Amount 0 / 0 Output: Allison 1495 / 1495 1364 / 1364 305 / 305 Total Dialysis Output Catheter 67 / 67 44 / 44 30 30 Other: Weight 90 kg Blood Glucose* 210 208 160 Patient Weight 06/09/16 23:59 Weight 90 kg - General Appearance General appearance: Present: appears started age, chronically ill EENT: Present: mucous membranes moist Neck: Present: no JVD Respiratory: Present: clear Cardiology: Present: irregular rhythm Additional Comments: generalized edema, pitting LE Gastrointestinal: Present: hypoactive bowel sounds Integumentary: Present: warm and dry - Lab 06/09/16 04:19 06/09/16 04:19 Most recent lab results ABG pH 7.29 pH Units (7.32-7.45) L 06/09/16 04:15 ABG pCO2 44 mmHg (35-45) 06/09/16 04:15 ABG pO2 102 mmHg (85-104) 06/09/16 04:15 ABG HCO3 21.2 mEQ/L (21-27) 06/09/16 04:15 ABG O2 Saturation 97 % (95-98) 06/09/16 04:15 Calcium 8.6 mg/dL (8.6-10.8) 06/09/16 04:19 Phosphorus 3.6 mg/dL (2.3-4.7) 06/08/16 04:13 Magnesium 2.3 mg/dL (1.6-2.6) 06/09/16 04:19 Consult Discharge Plan - Plan Referrals: Giovanny Reardon MD [Primary Care Provider] -
--- NOTE | 2016-06-09 13:19 | Cardiology Progress Note ---
Date of Encounter: 06/09/16 Time of Encounter: 10:30 Assessment and Plan (1) Heart failure, systolic and diastolic, acute on chronic Current Visit: No Status: Acute Patient's ability to compensate hemodynamically is complicated by her poor cardiac output. Dobutamine trial yesterday was not successful and was stopped today. It will be very challenging to wean her off of the vent given her poor cardiac output, renal failure, anuria and fluid status. The family is aware of her guarded condition. (2) Atrial fibrillation Current Visit: No Status: Chronic Presently on amiodarone drip with stable heart rates in the 80's. Patient is unable to be anticoagulated given presenting coagulopathy and continued hematuria. Qualifiers: Atrial fibrillation type: paroxysmal Qualified Code(s): I48.0 - Paroxysmal atrial fibrillation (3) Ischemic cardiomyopathy Current Visit: No Status: Chronic History of ischemic cardiomyopathy with known severe bi-ventricular heart failure. She is not on antiplatelet or anticoagulants due to presenting coagulopathy and ongoing hematuria. Still requiring pressor support. Discussion w patient/family: Updated and daughter. They understand her condition is very guarded. We will follow her course over the weekend and re-evaluate. Subjective Principal diagnosis: Shock, hyperkalemia, MINNIE, and acute on chronic respiratory failure Interval history: No acute overnight events. Patient is more responsive today but not following commands. Sedation weaned. Objective Vital Signs, Last 4 Hours Temp Pulse Resp BP Pulse Ox 06/09/16 12:00 97.6 F 80 26 82/51 95 06/09/16 11:00 80 26 92/52 95 06/09/16 10:03 88 26 85/52 95 General: Other (Intubated, sedated) HEENT: Atraumatic, Other (ETT in place) Cardiac: Other (irregularly irregular) Lungs: Other (diminished ) Neuro: Other (intubated, sedated but tries to open eyes when spoken to) Abdomen: Soft, Other (soft bowel sounds) Extremities: Other (2+ bilateral LE edema) Results 06/09/16 04:19 06/09/16 04:19 Lab Results 06/08/16 06/08/16 06/08/16 19:49 19:49 19:49 WBC 13.8 H Hgb 13.2 D Hct 40.9 Plt Count 73 L Sodium 127 L Potassium 4.4 Chloride 97 L Carbon Dioxide 19 BUN 54 H Creatinine 2.58 H Glucose 233 H Calcium 8.4 L Magnesium 2.2 06/09/16 06/09/16 04:19 04:19 WBC 17.1 H Hgb 13.2 Hct 40.4 Plt Count 73 L Sodium 126 L Potassium 4.4 Chloride 96 L Carbon Dioxide 21 BUN 54 H Creatinine 2.50 H Glucose 219 H Calcium 8.6 Magnesium 2.3 - EKG Interpretation EKG results cardiology: other (24h telemetry reviewed, AF with avg HR 86 bpm, one short run of NSVT 7 beats) Consult Discharge Plan - Plan Referrals: Giovanny Reardon MD [Primary Care Provider] -
--- NOTE | 2016-06-09 14:49 | Event Note ---
Date of Encounter: 06/09/16 Time of Encounter: 14:00 Patient remains with little improvement. at bedside and has had updates on clinical condition by Dr. Kelley and Dr. Katz. Continuing aggressive management through the weekend and states will "see how things are on Sunday". He is very aware of her poor prognosis. Will f/u Sunday am. Anticipate that they will desire to transition to comfort care and compassionate extubation unless she is improving.
[2016-06-09] MEDS: Insulin DETEMIR 100 UNIT/ML X5UNITS SQ SCH (20:34)
[2016-06-10] MEDS: Ipratropium/Albuterol Neb 3 ML IH SCH ×6 (00:07→20:22)
[2016-06-10] MEDS: *HR* Midazolam HCl 2 MG/2 ML VIAL IVP PRN ×5 (00:13→20:16)
[2016-06-10] MEDS: Hydrocortisone Sodium Succ 100 MG/2 ML VIAL IVP SCH ×4 (00:13→23:34)
[2016-06-10] MEDS: Insulin LISPRO 300 UNITS/3 ML VIAL SQ SCH ×6 (00:16→20:17)
[2016-06-10] MEDS: Lacri-Lube 3.5 GM TUBE BOTH EYES SCH ×7 (00:17→23:34)
[2016-06-10] MEDS ORDERED: *HR* Heparin 5,000 UNIT/ML VIAL ONE ×2 (00:34→16:15)
[2016-06-10] MEDS ORDERED: 0.9 % Sodium Chloride 1,000 ML ONE (00:35)
[2016-06-10] MEDS: *HR* Heparin 5,000 UNIT/ML VIAL IV PRN ×2 (01:24→17:33)
[2016-06-10] MEDS: Vasopressin 40 UNIT in D5% in Water 100 ML IVC SCH (01:26)
[2016-06-10] MEDS: Amiodarone Premix 360 MG/200 ML BAG IVC SCH ×2 (03:22→16:23)
[2016-06-10] MEDS: Norepinephrine 8 MG in D5% in Water 500 ML IVC SCH ×3 (04:03→23:33)
[2016-06-10 04:13] LABS: Eosinophils % 0.1 %; Immature Granulocytes % 3.8 % (0-4); Mean Corpuscular Volume 83.5 fL (83.0-100.0); Nucleated Red Blood Cells 0.5 /100 WBC (0)
[2016-06-10 04:14] LABS: Basophils # 0.1 K/mcL (0.0-0.2); Basophils % 0.5 %; Hematocrit 39.5 % (35.3-44.9); Hemoglobin 12.8 g/dL (11.5-15.4); Lymphocytes % 3.9 %; Mean Corpuscular HGB Conc 32.4 g/dL (31.6-35.5); Mean Corpuscular Hemoglobin 27.1 pg (28.0-33.3); Monocytes # 2.7 K/mcL (0.0-1.3); Monocytes % 10.6 %; Neutrophils # 20.8 K/mcL (1.6-8.9); Red Blood Count 4.73 M/mcL (3.82-4.97); Red Cell Distribution Width 16.7 % (11.5-14.5); Segmented Neutrophils % 81.1 %
[2016-06-10 04:20] LABS: INR 1.2; Prothrombin Time 13.4 Seconds (9.4-12.1)
[2016-06-10 04:29] LABS: Calcium 8.9 mg/dL (8.6-10.8); Magnesium 2.5 mg/dL (1.6-2.6); Potassium 4.8 mEq/L (3.5-4.5)
[2016-06-10 04:39] LABS: Platelet Count 79 K/mcL (140-400)
[2016-06-10 04:40] LABS: Anisocytosis 1+ (Not Present); Ovalocytes 1+ (Not Present); Platelet Estimate Marked Decrease (Normal); Poikilocytosis 1+ (Not Present)
[2016-06-10 05:30] LABS: ABG Base Excess -3.5 mEq/L (-2.0 to 3.0); ABG HCO3 22.7 mEQ/L (21-27); ABG Oxygen Saturation 94 % (95-98); ABG PCO2 44 mmHg (35-45); ABG PH 7.32 pH Units (7.32-7.45); ABG PO2 75 mmHg (85-104); ABG TCO2 24.1 mEq/L (20-26)
[2016-06-10 05:31] LABS: Blood Gas FiO2 50 %
[2016-06-10] MEDS: Famotidine 20 MG/2 ML VIAL IVP SCH (05:33)
[2016-06-10] MEDS: Cefepime HCl 2,000 MG in D5% in Water (Mini-Bag+) 100 ML IVPB SCH (05:33)
[2016-06-10] MEDS: PrismaSATE BGK 4/2.5 5,000 ML CRRT SCH ×4 (05:36→23:32)
[2016-06-10] MEDS: FentaNYL (PF) 1,000 MCG in 0.9 % Sodium Chloride 80 ML IVC SCH ×2 (07:05→17:30)
--- NOTE | 2016-06-10 08:01 | Pulmonology Progress Note ---
<GiannaJamal W - Last Filed: 06/10/16 11:20> Date of Encounter: 06/10/16 Objective PUL Vital signs: Last Vital Signs Temp 97.5 F L 06/10/16 08:03 Pulse 80 06/10/16 08:10 Resp 25 06/10/16 08:03 BP 94/54 06/10/16 08:03 Pulse Ox 94 06/10/16 08:03 Ventilator Settings Ventilator Settings: Ventilator Settings, Last 8 Hours Ventilator Mode VC+ Ventilator Mode VC+ Ventilator Mode VC+ Ventilator Mode VC+ Ventilator Mode VC+ Ventilator Mode VC+ Ventilator Mode VC+ Ventilator Mode VC+ Ventilator Mode VC+ Ventilator Mode VC+ Ventilator Mode VC+ Ventilator Mode VC+ Ventilator Mode VC+ Ventilator Tidal Volume 450 Setting Ventilator Tidal Volume 450 Setting Ventilator Tidal Volume 450 Setting Ventilator Tidal Volume 450 Setting Ventilator Tidal Volume 450 Setting Ventilator Tidal Volume 450 Setting Ventilator Tidal Volume 450 Setting Ventilator Tidal Volume 450 Setting Ventilator Tidal Volume 450 Setting Ventilator Tidal Volume 450 Setting Ventilator Tidal Volume 450 Setting Ventilator Tidal Volume 450 Setting Ventilator Tidal Volume 450 Setting Ventilator Respiratory Rate 22 Setting Ventilator Respiratory Rate 22 Setting Ventilator Respiratory Rate 22 Setting Ventilator Respiratory Rate 22 Setting Ventilator Respiratory Rate 22 Setting Ventilator Respiratory Rate 22 Setting Ventilator Respiratory Rate 22 Setting Ventilator Respiratory Rate 22 Setting Ventilator Respiratory Rate 22 Setting Ventilator Respiratory Rate 22 Setting Ventilator Respiratory Rate 22 Setting Ventilator Respiratory Rate 22 Setting Ventilator Respiratory Rate 22 Setting Actual Respiratory Rate 24 Actual Respiratory Rate 24 Actual Respiratory Rate 23 Actual Respiratory Rate 23 Actual Respiratory Rate 23 Actual Respiratory Rate 24 Actual Respiratory Rate 23 Actual Respiratory Rate 23 Actual Respiratory Rate 26 Actual Respiratory Rate 25 Actual Respiratory Rate 24 Actual Respiratory Rate 22 Positive End Expiratory 5 Pressure Positive End Expiratory 5 Pressure Positive End Expiratory 5 Pressure Positive End Expiratory 5 Pressure Positive End Expiratory 5 Pressure Positive End Expiratory 5 Pressure Positive End Expiratory 5 Pressure Positive End Expiratory 5 Pressure Positive End Expiratory 5 Pressure Positive End Expiratory 5 Pressure Positive End Expiratory 5 Pressure Positive End Expiratory 5 Pressure Positive End Expiratory 5 Pressure Peak Inspiratory Airway 29 Pressure Peak Inspiratory Airway 29 Pressure Peak Inspiratory Airway 27 Pressure Peak Inspiratory Airway 27 Pressure Peak Inspiratory Airway 27 Pressure Peak Inspiratory Airway 29 Pressure Peak Inspiratory Airway 26 Pressure Peak Inspiratory Airway 27 Pressure Peak Inspiratory Airway 26 Pressure Peak Inspiratory Airway 24 Pressure Peak Inspiratory Airway 27 Pressure Peak Inspiratory Airway 27 Pressure Results - Laboratory Findings CBC and BMP: 06/10/16 03:43 06/10/16 03:43 ABG ABG pH 7.32 pH Units (7.32-7.45) 06/10/16 05:16 ABG pCO2 44 mmHg (35-45) 06/10/16 05:16 ABG pO2 75 mmHg (85-104) L 06/10/16 05:16 ABG O2 Saturation 94 % (95-98) L 06/10/16 05:16 PT/INR, D-dimer PT 13.4 Seconds (9.4-12.1) H 06/10/16 03:43 Abnormal lab findings: Abnormal lab results WBC 25.7 K/mcL (4.3-11.1) H D 06/10/16 03:43 MCH 27.1 pg (28.0-33.3) L 06/10/16 03:43 RDW 16.7 % (11.5-14.5) H 06/10/16 03:43 Plt Count 79 K/mcL (140-400) L 06/10/16 03:43 Neutrophils # 20.8 K/mcL (1.6-8.9) H 06/10/16 03:43 Monocytes # 2.7 K/mcL (0.0-1.3) H 06/10/16 03:43 Nucleated RBCs/100 WBC 0.5 /100 WBC (0) H 06/10/16 03:43 Platelet Estimate Marked Decrease (Normal) L 06/10/16 03:43 Large Platelets Present (Not Present) A 06/08/16 19:49 Immature Plt Fraction 27.9 % (1.1-6.1) H 06/09/16 04:19 Polychromasia 1+ (Not Present) A 06/08/16 19:49 Poikilocytosis 1+ (Not Present) A 06/10/16 03:43 Anisocytosis 1+ (Not Present) A 06/10/16 03:43 Microcytosis Present (Not Present) A 06/08/16 19:49 Ovalocytes 1+ (Not Present) A 06/10/16 03:43 Acanthocytes (Spur) 1+ (Not Present) A 06/08/16 19:49 PT 13.4 Seconds (9.4-12.1) H 06/10/16 03:43 APTT 38.6 Seconds (26.0-36.0) H 06/05/16 03:45 ABG pO2 75 mmHg (85-104) L 06/10/16 05:16 ABG O2 Saturation 94 % (95-98) L 06/10/16 05:16 ABG Base Excess -3.5 mEq/L (-2.0 to 3.0) L 06/10/16 05:16 Sodium 128 mEq/L (136-145) L 06/10/16 03:43 Potassium 4.8 mEq/L (3.5-4.5) H 06/10/16 03:43 Carbon Dioxide 18 mEq/L (19-29) L 06/10/16 03:43 BUN 57 mg/dL (7-20) H 06/10/16 03:43 Creatinine 2.46 mg/dL (0.57-1.11) H 06/10/16 03:43 Est GFR ( Amer) 25 (> 60) L 06/10/16 03:43 Est GFR (Non-Af Amer) 20 (> 60) L 06/10/16 03:43 Glucose 194 mg/dL (70-99) H 06/10/16 03:43 POC Glucose 167 (58-89) H 06/10/16 08:06 Total Bilirubin 1.9 mg/dL (0.2-1.2) H 06/07/16 04:20 Direct Bilirubin 1.3 mg/dL (0.0-0.5) H 06/07/16 04:20 AST 71 Units/L (5-34) H 06/07/16 04:20 B-Natriuretic Peptide 1350 pg/mL (0-100) H 06/04/16 03:35 Albumin 2.5 g/dL (3.5-5.0) L 06/08/16 04:13 Globulin 4.4 g/dL (2.4-3.5) H 06/07/16 04:20 Albumin/Globulin Ratio 0.7 (1.1-2.2) L 06/07/16 04:20 HDL Cholesterol 15 mg/dL (40-59) L 06/04/16 03:35 TSH 6.183 mcIU/mL (0.350-4.840) H 06/03/16 21:07 Urine Blood Moderate (Negative) H 06/04/16 06:30 Ur Leukocyte Esterase Trace (Negative) H 06/04/16 06:30 Urine Microscopic RBC 15-30 per hpf (0-3) H 06/04/16 06:30 Urine Microscopic WBC 5-15 per hpf (0-3) H 06/04/16 06:30 Ur Squamous Epith Cells Many per lpf (None-Few) H 06/04/16 06:30 Ur Culture Indicated? YES (NO) A 06/04/16 06:30 Vancomycin Trough 21.4 mcg/mL (10-20) H* 06/08/16 04:13 - Microbiology Findings Microbiology Findings: Microbiology, Last 48 Hours 06/09/16 09:20 Urine Culture - Final Urine,[place] No growth. 06/04/16 08:35 Blood Culture - Final Peripheral Venipuncture No growth. - Clinical Findings Intake & Output: Intake & Output 06/09/16 06/10/16 06/10/16 23:59 07:59 15:59 Intake Total 1510 / 1510 1255 / 1255 43 / 43 Output Total 1279 / 1279 1154 / 1154 169 / 169 Balance 231 / 231 101 / 101 -126 / -126 Weight 90.2 kg Consult Discharge Plan - Plan Referrals: Giovanny Reardon MD [Primary Care Provider] - - Attending Attestation I examined this patient and my medical decision-making was reviewed with the SHIPPING AND RECEIVING OPERATOR/PA/Advanced Practice Nurse/Resident Physician. I agree with the documented findings, disposition and treatment plan as described except to the extent set forth below. I spent 35min of Critical Care time with this patient. It involved decision making of high complexity to assess, manipulate, and support vital organ system failure and/or to prevent further life threatening deterioration of the patient' s condition. The time involved in the performance of separately reportable procedures was not counted toward critical care time. Patient seen and examined at bedside Labs, radiology, chart personally reviewed. All lines examined without evidence of infection. Neuropsych: intuabted and sedated. Is more alert today but does not follow commands easily is noted to move all extremities spontaneously PEERL Pulm: hypoxic hypercapnic respiratory failure s/t to pulmonary edema stable. PEEP now at 5 Fio2 50% with acceptable oxygenation and ventilation Cards: cardiogenic shock likely complicaed by distributive shock. with severe underlying Ischemic Cardiomyopathy leading to MOSF. Pressor requirement ( vasopressin and Levothroid) has waxed and waned over the last 48 hours today has been able to come down to some degree in the pressor requirement. She has atrial fibrillation and the rate is controlled with amiodarone which we will continue we are appreciative of the ongoing support and recommendations from cardiology service FEN-GI: Cont enteral feedings. Continue bowel regimen and add Dulcolax suppository today and consider lactulose if no improvement. cont ppi prophylaxis. Renal: Anuric MINNIE with volume overload. CONT CVVH stop removal at present for worsening hypotension. ID: Rising leukocytosis cefepime was started yesterday without evidence of UTI rest of cultures are pending at persistent leukocytosis would broaden out for multidrug resistant organisms by adding meropenem she has been covered for MRSA at this point Heme/Onc: . H/H stable. Thrombocytopenia stable w/o evidence of DIC SO SUSPECT THIS IS SECONDARY TO NEW INFECTION OR MANIFESTATION OF MOSF or ongoing CVVH vs less likely HIT (although reamins in differential) heparin prophylaxis send PF4. stable DVT prophylaxis with SCDs Endo: Cont to wean stress dose hydrocortisone monitor glucose, hyperglycemia con basal bolus insulin Integ/MSK: skin care per ICU protocol CODE: DNRCCA I discussed case with family at bedside yesterday so that overall has not made significant improvement over the last week and per family would want to continue care through the weekend if no improvement early part of next week would like to change goals of care to comfort measures which is reasonable <Elana Dent - Last Filed: 06/10/16 12:35> Date of Encounter: 06/10/16 Time of Encounter: 08:01 Assessment and Plan (1) Shock Current Visit: Yes Status: Acute Cardiogenic and/or septic, patient has ischemic cardiomyopathy with EF 10-15%, ICD in place, still on Levophed, and vasopressin IV drip,maintain a MAP of 60- 65 this AM, just removing amount of fluid we put in through [facility] for low BP, switched to cefepime from levaquin yesterday for possibility of underlying UTI, urine culture pending, received vanco/levaquin for last several days, all culture negative so far, overall poor prognosis, palliative team has been consulted, her code status has been changed to DNR CCA, if no improvement in next few days, possible withdraw of care per family members, will con't to closely monitor her in ICU. (2) Acute kidney injury Current Visit: Yes Status: Acute This could be secondary to cardiorenal with a history of ischemic cardiomyopathy and/or prerenal from septic shock, nephrology has been consulted , renal function is slightly better than yesterday, con't with current [facility] setting, will follow their recommendations. (3) Ischemic cardiomyopathy Current Visit: Yes Status: Acute Previous echo on December 2015 showed left ventricular ejection fraction 15-20% with global left ventricular systolic dysfunction and severely dilated left ventricle, ICD in place, titrate dobutamine drip, HR stable, MAP is around 65 on levophed and vasopressin drip, overall poor prognosis, palliative team has been consulted and cardio has been following. Con't to closely monitor VS in ICU. (4) Atrial fibrillation with RVR Current Visit: Yes Status: Acute Tikosyn is on hold now, currently on amiodarone drip, HR has improved, cardio has been following, Eliquis is on hold now for hematuria. (5) Acute on chronic respiratory failure with hypoxia and hypercapnia Current Visit: Yes Status: Acute (6) Acute exacerbation of chronic obstructive airways disease Current Visit: Yes Status: Acute Extensive hx of smoking, this could be contributing to her acute on chronic respiratory failure picture, con't duoneb, IV steroid, oxygen support and IV abx. (7) Hyperglycemia Current Visit: Yes Status: Acute Last A1C was 6.7 on 11/20/2013, now on IV steroid, decreased dosage, hyperglycemic, currently on SQ insulin, on basal dose as well. (8) Hyponatremia Current Visit: Yes Status: Acute Sodiums level stable, hx with of ischemic cardiomyopathy and pedal pitting edema , worsening renal function, possible underlying hypotonic hypervoleic hyponatremia, nephrology has been following, no change in [facility] setting, will follow their recommendations. (9) Thrombocytopenia Current Visit: Yes Status: Acute Platelet dropped more than 1/2 from 148 to 73 from 06/07 to 06/08, she has been getting heparin through [facility] more than 5 days since this admission, her thrombocytopenia could be from ongoing infection but HIT cannot be ruled out yet , will obtain PF4 antibody and fibrinogen level today, will stop heparin SQ today, con't to monitor her labs. (10) Leukocytosis Current Visit: Yes Status: Acute Raisinf daily despite antibiot administration, temp was down to 96.3F this AM, vanco IV was stopped yesterday, yesterday we switched to cefepime IV from levaquin for possibility of underlying UTI, will obtain urine culture today, all cultures have been negative so far, con't to monitor her labs and VS. (11) DVT prophylaxis Current Visit: Yes Status: Acute EPCDs Subjective Principal diagnosis: Shock, hyperkalemia, MINNIE, and acute on chronic respiratory failure Interval history: Stable overnight. Patient is opening her eyes spontaneously however not following any commands. Still requiring levofed and vasopressin to maintain a map of 60-65. Still on [facility]. Patient's prognosis is still very guarded. We decrease her steroids today to 25 mg. We will continue tube feeds. Her bowel sounds are hypoactive at this time. White blood cell count increased again overnight to 25.7. Objective PUL Vital signs: Last Vital Signs Temp 97.7 F 06/10/16 04:00 Pulse 72 06/10/16 07:00 Resp 25 06/10/16 07:38 BP 90/48 06/10/16 07:00 Pulse Ox 94 06/10/16 07:38 General appearance: no acute distress, other (Intubated and sedated.) Eyes: nonicteric ENT: oropharynx moist Neck: supple, no lymphadenopathy Effort: normal Auscultation: bilateral: clear Cardiovascular: regular rate and rhythm Gastrointestinal: hypoactive bowel sounds, soft, non-distended Integumentary: normal Extremities: no cyanosis, edema (Bilateral pitting edema to tibias. Also to dependent area of upper thighs.) Musculoskeletal: no deformities pupils equal and round, unable to assess due to mental status Ventilator Settings Ventilator Settings: Ventilator Settings, Last 8 Hours Ventilator Mode VC+ Ventilator Mode VC+ Ventilator Mode VC+ Ventilator Mode VC+ Ventilator Mode VC+ Ventilator Mode VC+ Ventilator Mode VC+ Ventilator Mode VC+ Ventilator Mode VC+ Ventilator Mode VC+ Ventilator Mode VC+ Ventilator Mode VC+ Ventilator Mode VC+ Ventilator Tidal Volume 450 Setting Ventilator Tidal Volume 450 Setting Ventilator Tidal Volume 450 Setting Ventilator Tidal Volume 450 Setting Ventilator Tidal Volume 450 Setting Ventilator Tidal Volume 450 Setting Ventilator Tidal Volume 450 Setting Ventilator Tidal Volume 450 Setting Ventilator Tidal Volume 450 Setting Ventilator Tidal Volume 450 Setting Ventilator Tidal Volume 450 Setting Ventilator Tidal Volume 450 Setting Ventilator Tidal Volume 450 Setting Ventilator Respiratory Rate 22 Setting Ventilator Respiratory Rate 22 Setting Ventilator Respiratory Rate 22 Setting Ventilator Respiratory Rate 22 Setting Ventilator Respiratory Rate 22 Setting Ventilator Respiratory Rate 22 Setting Ventilator Respiratory Rate 22 Setting Ventilator Respiratory Rate 22 Setting Ventilator Respiratory Rate 22 Setting Ventilator Respiratory Rate 22 Setting Ventilator Respiratory Rate 22 Setting Ventilator Respiratory Rate 22 Setting Ventilator Respiratory Rate 22 Setting Actual Respiratory Rate 24 Actual Respiratory Rate 23 Actual Respiratory Rate 23 Actual Respiratory Rate 23 Actual Respiratory Rate 24 Actual Respiratory Rate 23 Actual Respiratory Rate 23 Actual Respiratory Rate 26 Actual Respiratory Rate 25 Actual Respiratory Rate 24 Actual Respiratory Rate 22 Actual Respiratory Rate 22 Positive End Expiratory 5 Pressure Positive End Expiratory 5 Pressure Positive End Expiratory 5 Pressure Positive End Expiratory 5 Pressure Positive End Expiratory 5 Pressure Positive End Expiratory 5 Pressure Positive End Expiratory 5 Pressure Positive End Expiratory 5 Pressure Positive End Expiratory 5 Pressure Positive End Expiratory 5 Pressure Positive End Expiratory 5 Pressure Positive End Expiratory 5 Pressure Positive End Expiratory 5 Pressure Peak Inspiratory Airway 29 Pressure Peak Inspiratory Airway 27 Pressure Peak Inspiratory Airway 27 Pressure Peak Inspiratory Airway 27 Pressure Peak Inspiratory Airway 29 Pressure Peak Inspiratory Airway 26 Pressure Peak Inspiratory Airway 27 Pressure Peak Inspiratory Airway 26 Pressure Peak Inspiratory Airway 24 Pressure Peak Inspiratory Airway 27 Pressure Peak Inspiratory Airway 27 Pressure Peak Inspiratory Airway 26 Pressure Results - Laboratory Findings CBC and BMP: 06/10/16 03:43 06/10/16 03:43 ABG ABG pH 7.32 pH Units (7.32-7.45) 06/10/16 05:16 ABG pCO2 44 mmHg (35-45) 06/10/16 05:16 ABG pO2 75 mmHg (85-104) L 06/10/16 05:16 ABG O2 Saturation 94 % (95-98) L 06/10/16 05:16 PT/INR, D-dimer PT 13.4 Seconds (9.4-12.1) H 06/10/16 03:43 Abnormal lab findings: Abnormal lab results WBC 25.7 K/mcL (4.3-11.1) H D 06/10/16 03:43 MCH 27.1 pg (28.0-33.3) L 06/10/16 03:43 RDW 16.7 % (11.5-14.5) H 06/10/16 03:43 Plt Count 79 K/mcL (140-400) L 06/10/16 03:43 Neutrophils # 20.8 K/mcL (1.6-8.9) H 06/10/16 03:43 Monocytes # 2.7 K/mcL (0.0-1.3) H 06/10/16 03:43 Nucleated RBCs/100 WBC 0.5 /100 WBC (0) H 06/10/16 03:43 Platelet Estimate Marked Decrease (Normal) L 06/10/16 03:43 Large Platelets Present (Not Present) A 06/08/16 19:49 Immature Plt Fraction 27.9 % (1.1-6.1) H 06/09/16 04:19 Polychromasia 1+ (Not Present) A 06/08/16 19:49 Poikilocytosis 1+ (Not Present) A 06/10/16 03:43 Anisocytosis 1+ (Not Present) A 06/10/16 03:43 Microcytosis Present (Not Present) A 06/08/16 19:49 Ovalocytes 1+ (Not Present) A 06/10/16 03:43 Acanthocytes (Spur) 1+ (Not Present) A 06/08/16 19:49 PT 13.4 Seconds (9.4-12.1) H 06/10/16 03:43 APTT 38.6 Seconds (26.0-36.0) H 06/05/16 03:45 ABG pO2 75 mmHg (85-104) L 06/10/16 05:16 ABG O2 Saturation 94 % (95-98) L 06/10/16 05:16 ABG Base Excess -3.5 mEq/L (-2.0 to 3.0) L 06/10/16 05:16 Sodium 128 mEq/L (136-145) L 06/10/16 03:43 Potassium 4.8 mEq/L (3.5-4.5) H 06/10/16 03:43 Carbon Dioxide 18 mEq/L (19-29) L 06/10/16 03:43 BUN 57 mg/dL (7-20) H 06/10/16 03:43 Creatinine 2.46 mg/dL (0.57-1.11) H 06/10/16 03:43 Est GFR ( Amer) 25 (> 60) L 06/10/16 03:43 Est GFR (Non-Af Amer) 20 (> 60) L 06/10/16 03:43 Glucose 194 mg/dL (70-99) H 06/10/16 03:43 POC Glucose 173 (58-89) H 06/10/16 00:07 Total Bilirubin 1.9 mg/dL (0.2-1.2) H 06/07/16 04:20 Direct Bilirubin 1.3 mg/dL (0.0-0.5) H 06/07/16 04:20 AST 71 Units/L (5-34) H 06/07/16 04:20 B-Natriuretic Peptide 1350 pg/mL (0-100) H 06/04/16 03:35 Albumin 2.5 g/dL (3.5-5.0) L 06/08/16 04:13 Globulin 4.4 g/dL (2.4-3.5) H 06/07/16 04:20 Albumin/Globulin Ratio 0.7 (1.1-2.2) L 06/07/16 04:20 HDL Cholesterol 15 mg/dL (40-59) L 06/04/16 03:35 TSH 6.183 mcIU/mL (0.350-4.840) H 06/03/16 21:07 Urine Blood Moderate (Negative) H 06/04/16 06:30 Ur Leukocyte Esterase Trace (Negative) H 06/04/16 06:30 Urine Microscopic RBC 15-30 per hpf (0-3) H 06/04/16 06:30 Urine Microscopic WBC 5-15 per hpf (0-3) H 06/04/16 06:30 Ur Squamous Epith Cells Many per lpf (None-Few) H 06/04/16 06:30 Ur Culture Indicated? YES (NO) A 06/04/16 06:30 Vancomycin Trough 21.4 mcg/mL (10-20) H* 06/08/16 04:13 - Microbiology Findings Microbiology Findings: Microbiology, Last 48 Hours 06/09/16 09:20 Urine Culture - Final Urine,[place] No growth. 06/04/16 08:35 Blood Culture - Final Peripheral Venipuncture No growth. - Diagnostic Findings Additional studies: KUB X-Ray 06/03/16 22:00 IMPRESSION: Nasogastric tube in appropriate position with tip in the gastric body. D/ / Bc Juan MD / Bc Juan MD Interpreting Provider: Bc Juan MD Chest X-Ray 06/06/16 11:41 IMPRESSION: 1. ETT tip 2.4 cm above the bette. 2. Cardiomegaly with pulmonary edema and pleural effusions compatible with CHF. Left greater than right basilar opacities compatible atelectasis. D/ / Christiano Goldberg MD / Christiano Goldberg MD Interpreting Provider: Christiano Goldberg MD - Clinical Findings Intake & Output: Intake & Output 06/09/16 06/10/16 06/10/16 23:59 07:59 15:59 Intake Total 1510 / 1510 1255 / 1255 Output Total 1279 / 1279 1154 / 1154 Balance 231 / 231 101 / 101 Weight 90.2 kg
[2016-06-10] MEDS: Chlorhexidine Rinse 15 ML MOUTHWASH MM SCH ×2 (08:17→20:19)
[2016-06-10] MEDS: Bisacodyl 10 MG RECTAL SUPPOSITORY RC SCH (08:17)
--- NOTE | 2016-06-10 11:29 | Nephrology Progress Note ---
Date of Encounter: 06/10/16 Time of Encounter: 11:26 - Assessment and Plan (1) MINNIE (acute kidney injury) Current Visit: No Status: Acute sec to ATN in the setting of cardiogenic and septic shock. remains oliguric with volume overload. continue CRRT, unable to add UF because of hypotension and requiring 2 pressors mild metaboic and resp acidosis. Increase the rate of dialysate and replacement fluid. Leucocytosis and Thrombocytopenia critically ill, prognosis guarded, d/w family Subjective Principal diagnosis: Shock, hyperkalemia, MINNIE, and acute on chronic respiratory failure Interval history: opening eyes spontaneously, does not follow commands. Systolic BP remains in 90 's Remains on Levophed ( dose has decreased from 20 to 12 mcg) and vasopressin, sedated and intubated. On 50% FiO2. Spouse and daughter at bedside Objective - Vital Signs Vital signs: Vital Signs Temp Pulse Resp BP Pulse Ox 06/10/16 11:00 74 22 100/57 95 06/10/16 10:51 22 95 06/10/16 10:00 78 25 90/58 94 06/10/16 09:00 75 25 99/57 94 06/10/16 08:10 80 06/10/16 08:03 97.5 F L 80 25 94/54 94 06/10/16 07:38 25 94 06/10/16 07:00 72 23 90/48 95 06/10/16 06:12 23 92/49 95 06/10/16 06:00 71 23 98/51 94 06/10/16 05:00 82 24 110/63 93 06/10/16 04:45 22 99/53 94 06/10/16 04:00 97.7 F 70 23 93/48 94 06/10/16 03:00 82 26 104/57 94 06/10/16 02:06 23 92/56 95 06/10/16 02:00 73 24 97/51 95 06/10/16 01:00 86 22 88/51 93 06/10/16 00:07 23 96/54 94 06/10/16 00:00 97.5 F L 79 23 97/56 94 06/09/16 23:00 93 24 90/55 95 06/09/16 22:06 25 80/48 94 06/09/16 22:00 92 34 99/60 92 06/09/16 21:00 89 23 91/51 93 06/09/16 20:09 22 85/55 92 06/09/16 20:00 98.2 F 84 22 90/56 92 06/09/16 19:00 76 23 84/52 93 06/09/16 18:00 96 24 102/59 93 06/09/16 17:05 24 106/62 93 06/09/16 17:00 80 22 107/63 93 06/09/16 16:09 98.4 F 86 22 94/61 93 06/09/16 16:00 86 06/09/16 15:47 22 92/56 93 06/09/16 15:00 80 22 86/55 93 06/09/16 14:03 22 92/56 92 06/09/16 14:00 96 26 86/54 95 06/09/16 13:00 82 26 89/55 95 06/09/16 12:22 23 83/51 92 06/09/16 12:00 97.6 F 80 26 82/51 95 Intake and Output 06/09/16 06/10/16 06/10/16 23:59 07:59 15:59 Intake Total 1510 / 1510 1255 / 1255 279 / 279 Output Total 1279 / 1279 1154 / 1154 695 / 695 Balance 231 / 231 101 / 101 -416 / -416 Intake: IV Fluids 708 / 708 910 / 910 100 / 100 Amiodarone 360mg/200mL 200 / 200 Drip Premix 360 mg In 200 ml @ 0.5 MG/MIN 16.667 mls/hr IVC [facility] Rx#: [id number] FentaNYL (PF) 1,000 MCG 100 / 100 100 / 100 In 0.9 % Sodium Chloride 80 ML @ 25 MCG/HR 2.5 mls /hr IVC [facility] Rx#: [id number] Levophed 8 MG In Dextrose 508 / 508 508 / 508 0 / 0 5% 500 ML @ 5 MCG/MIN 19 .05 mls/hr IVC [facility] Rx#:[id number] Vasostrict 40 UNIT In 102 / 102 Dextrose 5% 100 ML @ 0.03 UNIT/MIN 4.59 mls/hr IVC .[id number] [facility] Rx#: [id number] Maxipime 2,000 MG In 100 / 100 100 / 100 Dextrose 5% (Minibag+) 100 ML 100 ML @ 200 mls/ hr IVPB Q12HR [facility] Rx#: [id number] Tube Feeding 802 / 802 345 / 345 179 / 179 Free Water Intake Amount 0 / 0 0 / 0 Output: Allison 1271 / 1271 1131 / 1131 680 / 680 Catheter 15 / 15 Other: Stool Size Small Stool Consistency loose Stool Characteristics Mucoid Stool Color Yellow Green Weight 90.2 kg Blood Glucose* 170 171 167 Patient Weight 06/10/16 23:59 Weight 90.2 kg - General Appearance Exam: CVS; s1s2 present, regular, no murmurs RESP; good air entry, clear anteriorly ABD; soft, NT, BS present EXT; 2+ edema, unable to palpate DP pulse. [employer]; opening eyes spontaneously - Lab 06/10/16 03:43 06/10/16 03:43 Most recent lab results ABG pH 7.32 pH Units (7.32-7.45) 06/10/16 05:16 ABG pCO2 44 mmHg (35-45) 06/10/16 05:16 ABG pO2 75 mmHg (85-104) L 06/10/16 05:16 ABG HCO3 22.7 mEQ/L (21-27) 06/10/16 05:16 ABG O2 Saturation 94 % (95-98) L 06/10/16 05:16 Calcium 8.9 mg/dL (8.6-10.8) 06/10/16 03:43 Phosphorus 3.6 mg/dL (2.3-4.7) 06/08/16 04:13 Magnesium 2.5 mg/dL (1.6-2.6) 06/10/16 03:43 Consult Discharge Plan - Plan Referrals: Giovanny Reardon MD [Primary Care Provider] -
[2016-06-10 15:05] LABS: Vancomycin,Random 9.7 mcg/mL
[2016-06-10] MEDS: Meropenem 1,000 MG in 0.9 % Sodium Chloride Mini Bag 100 ML IVPB SCH ×2 (16:24→23:33)
[2016-06-10] MEDS ORDERED: 0.9 % Sodium Chloride 2,000 ML ONE (16:36)
[2016-06-10] MEDS ORDERED: 0.9 % Sodium Chloride 250 ML ONE (16:36)
[2016-06-10] MEDS ORDERED: Vancomycin 1,000 MG in D5% in Water 250 ML IV ONE (17:00)
[2016-06-10] MEDS: Insulin DETEMIR 100 UNIT/ML X5UNITS SQ SCH (20:19)
[2016-06-10] MEDS ORDERED: Dexmedetomidine HCl 400 MCG/100 ML MLS IVC ONE (20:44)
[2016-06-10] MEDS: Dexmedetomidine HCl 400 MCG/100 ML MLS IVC SCH (21:05)
[2016-06-11] MEDS: Ipratropium/Albuterol Neb 3 ML IH SCH ×6 (00:02→19:41)
[2016-06-11] MEDS: Insulin LISPRO 300 UNITS/3 ML VIAL SQ SCH ×7 (00:21→23:15)
[2016-06-11] MEDS: Vasopressin 40 UNIT in D5% in Water 100 ML IVC SCH ×2 (02:31→13:10)
[2016-06-11] MEDS: Lacri-Lube 3.5 GM TUBE BOTH EYES SCH ×6 (03:41→23:15)
[2016-06-11] MEDS: Amiodarone Premix 360 MG/200 ML BAG IVC SCH ×2 (03:44→17:45)
[2016-06-11 03:45] LABS: Hemoglobin 12.4 g/dL (11.5-15.4); Nucleated Red Blood Cells 1.2 /100 WBC (0)
[2016-06-11 03:46] LABS: Mean Corpuscular HGB Conc 33.5 g/dL (31.6-35.5); Mean Corpuscular Volume 83.5 fL (83.0-100.0); Red Blood Count 4.43 M/mcL (3.82-4.97); Red Cell Distribution Width 17.2 % (11.5-14.5)
[2016-06-11 04:04] LABS: Albumin 2.6 g/dL (3.5-5.0); Calcium 8.8 mg/dL (8.6-10.8); Magnesium 2.5 mg/dL (1.6-2.6); Phosphorous 3.6 mg/dL (2.3-4.7); Potassium 5.1 mEq/L (3.5-4.5)
[2016-06-11 04:30] LABS: Platelet Count 66 K/mcL (140-400)
[2016-06-11 04:35] LABS: Lymphocytes # 1.8 K/mcL (0.6-4.6); Monocytes # 4.2 K/mcL (0.0-1.3); Neutrophils # 23.8 K/mcL (1.6-8.9)
[2016-06-11] MEDS: PrismaSATE BGK 4/2.5 5,000 ML CRRT SCH ×5 (04:35→21:00)
[2016-06-11 04:37] LABS: Anisocytosis 1+ (Not Present); Microcytosis Present (Not Present); Ovalocytes 1+ (Not Present); Polychromasia 1+ (Not Present)
[2016-06-11 04:39] LABS: Hypochromasia Present (Not Present); Platelet Estimate Decreased (Normal); Poikilocytosis 1+ (Not Present)
[2016-06-11] MEDS: FentaNYL (PF) 1,000 MCG in 0.9 % Sodium Chloride 80 ML IVC SCH ×2 (04:49→15:09)
[2016-06-11] MEDS: Famotidine 20 MG/2 ML VIAL IVP SCH (05:25)
[2016-06-11] MEDS: Norepinephrine 8 MG in D5% in Water 500 ML IVC SCH ×3 (06:04→20:34)
[2016-06-11] MEDS: Dexmedetomidine HCl 400 MCG/100 ML MLS IVC SCH ×2 (07:05→17:51)
--- NOTE | 2016-06-11 07:59 | Pulmonology Progress Note ---
<Elana Dent - Last Filed: 06/11/16 10:42> Date of Encounter: 06/11/16 Time of Encounter: 07:59 Assessment and Plan (1) Shock Current Visit: Yes Status: Acute Cardiogenic and/or septic, patient has ischemic cardiomyopathy with EF 10-15%, ICD in place, still on Levophed, and vasopressin IV drip,maintain a MAP of 60- 65 this AM, just removing amount of fluid we put in through [facility] for low BP, abx coverage is cefepime for possibility of underlying UTI, urine culture pending, received vanco/levaquin for last several days, all culture negative so far, overall poor prognosis, palliative team has been consulted, her code status has been changed to DNR CCA, if no improvement in next few days, possible withdraw of care per family members, will con't to closely monitor her in ICU. (2) Acute kidney injury Current Visit: Yes Status: Acute This could be secondary to cardiorenal with a history of ischemic cardiomyopathy and/or prerenal from septic shock, nephrology has been consulted , renal function is slightly better than yesterday, con't with current [facility] setting, will follow their recommendations. (3) Ischemic cardiomyopathy Current Visit: Yes Status: Acute Previous echo on December 2015 showed left ventricular ejection fraction 15-20% with global left ventricular systolic dysfunction and severely dilated left ventricle, ICD in place, titrate dobutamine drip, HR stable, MAP is around 65 on levophed and vasopressin drip, overall poor prognosis, palliative team has been consulted and cardio has been following. Con't to closely monitor VS in ICU. (4) Atrial fibrillation with RVR Current Visit: Yes Status: Acute Tikosyn is on hold now, currently on amiodarone drip, HR has improved, cardio has been following, Eliquis is on hold now for hematuria. (5) Acute exacerbation of chronic obstructive airways disease Current Visit: Yes Status: Acute Extensive hx of smoking, this could be contributing to her acute on chronic respiratory failure picture, con't duoneb, IV steroid, oxygen support and IV abx. (6) Hyperglycemia Current Visit: Yes Status: Acute Last A1C was 6.7 on 11/20/2013, now on IV steroid, decreased dosage, hyperglycemic, currently on SQ insulin, on basal dose as well. (7) Hyponatremia Current Visit: Yes Status: Acute Sodiums level stable, hx with of ischemic cardiomyopathy and pedal pitting edema , worsening renal function, possible underlying hypotonic hypervoleic hyponatremia, nephrology has been following, no change in [facility] setting, will follow their recommendations. (8) Thrombocytopenia Current Visit: Yes Status: Acute Platelet dropped more than 1/2 from 148 to 73 from 06/07 to 06/08, she has been getting heparin through [facility] more than 5 days since this admission, her thrombocytopenia could be from ongoing infection but HIT cannot be ruled out yet , will obtain PF4 antibody and fibrinogen level today, will stop heparin SQ today, con't to monitor her labs. (9) Leukocytosis Current Visit: Yes Status: Acute Raising daily despite antibiotic administration, vanco IV was added back yesterday we switched to cefepime IV from levaquin for possibility of underlying UTI, will obtain urine culture today, all cultures have been negative so far, con't to monitor her labs and VS. Qualifiers: Qualified Code(s): D72.829 - Elevated white blood cell count, unspecified (10) DVT prophylaxis Current Visit: Yes Status: Acute EPCDs Subjective Principal diagnosis: Shock, hyperkalemia, MINNIE, and acute on chronic respiratory failure Interval history: Stable overnight. Patient is opening her eyes spontaneously however not following any commands for me. Nursing staff states that at times the patient will make purposeful movements and follow their commands. It appears this is waxing and waning. Still requiring levofed and vasopressin to maintain a map of 60-65. Still on [facility]. Patient's prognosis is still very guarded. We decrease her steroids today to 25 mg. We will continue tube feeds. Her bowel sounds are hypoactive at this time. White blood cell count increased again overnight to 29.8. Objective PUL Vital signs: Last Vital Signs Temp 97.3 F L 06/11/16 04:00 Pulse 64 06/11/16 07:39 Resp 26 06/11/16 07:00 BP 96/50 06/11/16 07:00 Pulse Ox 99 06/11/16 07:00 General appearance: no acute distress, other (Opens eyes spontaneously. Not following my commands. ) Eyes: nonicteric ENT: oropharynx moist Neck: supple Effort: normal Cardiovascular: regular rate and rhythm Gastrointestinal: hypoactive bowel sounds, soft, non-tender, non-distended Integumentary: normal Extremities: no cyanosis, no edema, no clubbing, edema (pitting bilaterally to knees. [place] edema to posterior upper legs) Musculoskeletal: no deformities unable to assess due to mental status Ventilator Settings Ventilator Settings: Ventilator Settings, Last 8 Hours Ventilator Mode VC+ Ventilator Mode VC+ Ventilator Mode VC+ Ventilator Mode VC+ Ventilator Mode VC+ Ventilator Mode VC+ Ventilator Mode VC+ Ventilator Mode VC+ Ventilator Mode VC+ Ventilator Mode VC+ Ventilator Mode VC+ Ventilator Mode VC+ Ventilator Tidal Volume 450 Setting Ventilator Tidal Volume 450 Setting Ventilator Tidal Volume 450 Setting Ventilator Tidal Volume 450 Setting Ventilator Tidal Volume 450 Setting Ventilator Tidal Volume 450 Setting Ventilator Tidal Volume 450 Setting Ventilator Tidal Volume 450 Setting Ventilator Tidal Volume 450 Setting Ventilator Tidal Volume 450 Setting Ventilator Tidal Volume 450 Setting Ventilator Tidal Volume 450 Setting Ventilator Respiratory Rate 22 Setting Ventilator Respiratory Rate 22 Setting Ventilator Respiratory Rate 22 Setting Ventilator Respiratory Rate 22 Setting Ventilator Respiratory Rate 22 Setting Ventilator Respiratory Rate 22 Setting Ventilator Respiratory Rate 22 Setting Ventilator Respiratory Rate 22 Setting Ventilator Respiratory Rate 22 Setting Ventilator Respiratory Rate 22 Setting Ventilator Respiratory Rate 22 Setting Ventilator Respiratory Rate 22 Setting Actual Respiratory Rate 22 Actual Respiratory Rate 23 Actual Respiratory Rate 23 Actual Respiratory Rate 26 Actual Respiratory Rate 27 Actual Respiratory Rate 30 Actual Respiratory Rate 23 Actual Respiratory Rate 22 Actual Respiratory Rate 25 Actual Respiratory Rate 23 Actual Respiratory Rate 22 Actual Respiratory Rate 23 Positive End Expiratory 5 Pressure Positive End Expiratory 5 Pressure Positive End Expiratory 5 Pressure Positive End Expiratory 5 Pressure Positive End Expiratory 5 Pressure Positive End Expiratory 5 Pressure Positive End Expiratory 5 Pressure Positive End Expiratory 5 Pressure Positive End Expiratory 5 Pressure Positive End Expiratory 5 Pressure Positive End Expiratory 5 Pressure Positive End Expiratory 5 Pressure Peak Inspiratory Airway 23 Pressure Peak Inspiratory Airway 24 Pressure Peak Inspiratory Airway 22 Pressure Peak Inspiratory Airway 25 Pressure Peak Inspiratory Airway 28 Pressure Peak Inspiratory Airway 11 Pressure Peak Inspiratory Airway 26 Pressure Peak Inspiratory Airway 21 Pressure Peak Inspiratory Airway 21 Pressure Peak Inspiratory Airway 25 Pressure Peak Inspiratory Airway 26 Pressure Peak Inspiratory Airway 28 Pressure Results - Laboratory Findings CBC and BMP: 06/11/16 03:37 06/11/16 03:37 ABG ABG pH 7.32 pH Units (7.32-7.45) 06/10/16 05:16 ABG pCO2 44 mmHg (35-45) 06/10/16 05:16 ABG pO2 75 mmHg (85-104) L 06/10/16 05:16 ABG O2 Saturation 94 % (95-98) L 06/10/16 05:16 PT/INR, D-dimer PT 13.4 Seconds (9.4-12.1) H 06/10/16 03:43 Abnormal lab findings: Abnormal lab results WBC 29.8 K/mcL (4.3-11.1) H 06/11/16 03:37 RDW 17.2 % (11.5-14.5) H 06/11/16 03:37 Plt Count 66 K/mcL (140-400) L 06/11/16 03:37 Neutrophils # 23.8 K/mcL (1.6-8.9) H 06/11/16 03:37 Monocytes # 4.2 K/mcL (0.0-1.3) H 06/11/16 03:37 Nucleated RBCs/100 WBC 1.2 /100 WBC (0) H 06/11/16 03:37 Platelet Estimate Decreased (Normal) L 06/11/16 03:37 Large Platelets Present (Not Present) A 06/08/16 19:49 Immature Plt Fraction 27.9 % (1.1-6.1) H 06/09/16 04:19 Polychromasia 1+ (Not Present) A 06/11/16 03:37 Hypochromasia Present (Not Present) A 06/11/16 03:37 Poikilocytosis 1+ (Not Present) A 06/11/16 03:37 Anisocytosis 1+ (Not Present) A 06/11/16 03:37 Microcytosis Present (Not Present) A 06/11/16 03:37 Ovalocytes 1+ (Not Present) A 06/11/16 03:37 Acanthocytes (Spur) 1+ (Not Present) A 06/08/16 19:49 PT 13.4 Seconds (9.4-12.1) H 06/10/16 03:43 APTT 38.6 Seconds (26.0-36.0) H 06/05/16 03:45 ABG pO2 75 mmHg (85-104) L 06/10/16 05:16 ABG O2 Saturation 94 % (95-98) L 06/10/16 05:16 ABG Base Excess -3.5 mEq/L (-2.0 to 3.0) L 06/10/16 05:16 Sodium 127 mEq/L (136-145) L 06/11/16 03:37 Potassium 5.1 mEq/L (3.5-4.5) H 06/11/16 03:37 BUN 56 mg/dL (7-20) H 06/11/16 03:37 Creatinine 2.26 mg/dL (0.57-1.11) H 06/11/16 03:37 Est GFR ( Amer) 27 (> 60) L 06/11/16 03:37 Est GFR (Non-Af Amer) 22 (> 60) L 06/11/16 03:37 Glucose 221 mg/dL (70-99) H 06/11/16 03:37 POC Glucose 135 (58-89) H 06/11/16 07:46 Total Bilirubin 1.9 mg/dL (0.2-1.2) H 06/07/16 04:20 Direct Bilirubin 1.3 mg/dL (0.0-0.5) H 06/07/16 04:20 AST 71 Units/L (5-34) H 06/07/16 04:20 B-Natriuretic Peptide 1350 pg/mL (0-100) H 06/04/16 03:35 Albumin 2.6 g/dL (3.5-5.0) L 06/11/16 03:37 Globulin 4.4 g/dL (2.4-3.5) H 06/07/16 04:20 Albumin/Globulin Ratio 0.7 (1.1-2.2) L 06/07/16 04:20 HDL Cholesterol 15 mg/dL (40-59) L 06/04/16 03:35 TSH 6.183 mcIU/mL (0.350-4.840) H 06/03/16 21:07 Urine Blood Moderate (Negative) H 06/04/16 06:30 Ur Leukocyte Esterase Trace (Negative) H 06/04/16 06:30 Urine Microscopic RBC 15-30 per hpf (0-3) H 06/04/16 06:30 Urine Microscopic WBC 5-15 per hpf (0-3) H 06/04/16 06:30 Ur Squamous Epith Cells Many per lpf (None-Few) H 06/04/16 06:30 Ur Culture Indicated? YES (NO) A 06/04/16 06:30 Vancomycin Trough 21.4 mcg/mL (10-20) H* 06/08/16 04:13 - Microbiology Findings Microbiology Findings: Microbiology, Last 48 Hours 06/10/16 13:27 Sputum Culture - Preliminary Sputum 06/09/16 09:20 Urine Culture - Final Urine,[place] No growth. 06/04/16 08:35 Blood Culture - Final Peripheral Venipuncture No growth. - Clinical Findings Intake & Output: Intake & Output 06/10/16 06/10/16 06/11/16 15:59 23:59 07:59 Intake Total 981 / 981 1270 / 1270 1372 / 1372 Output Total 1202 / 1202 1178 / 1178 1899 / 1899 Balance -221 / -221 92 / 92 -527 / -527 Weight 89.8 kg - VTE Documentation of Mechanical Device: Graduated compression elastic hosiery Consult Discharge Plan - Plan Referrals: Giovanny Reardon MD [Primary Care Provider] - <Jamal Katz - Last Filed: 06/11/16 14:05> Date of Encounter: 06/11/16 Objective PUL Vital signs: Last Vital Signs Temp 97.4 F L 06/11/16 11:00 Pulse 61 06/11/16 13:00 Resp 23 06/11/16 13:00 BP 87/48 06/11/16 13:00 Pulse Ox 97 06/11/16 13:00 Ventilator Settings Ventilator Settings: Ventilator Settings, Last 8 Hours Ventilator Mode VC+ Ventilator Mode VC+ Ventilator Mode VC+ Ventilator Mode VC+ Ventilator Mode VC+ Ventilator Mode VC+ Ventilator Mode VC+ Ventilator Mode VC+ Ventilator Mode VC+ Ventilator Mode VC+ Ventilator Mode VC+ Ventilator Mode VC+ Ventilator Tidal Volume 450 Setting Ventilator Tidal Volume 450 Setting Ventilator Tidal Volume 450 Setting Ventilator Tidal Volume 450 Setting Ventilator Tidal Volume 450 Setting Ventilator Tidal Volume 450 Setting Ventilator Tidal Volume 450 Setting Ventilator Tidal Volume 450 Setting Ventilator Tidal Volume 450 Setting Ventilator Tidal Volume 450 Setting Ventilator Tidal Volume 450 Setting Ventilator Tidal Volume 450 Setting Ventilator Respiratory Rate 22 Setting Ventilator Respiratory Rate 22 Setting Ventilator Respiratory Rate 22 Setting Ventilator Respiratory Rate 22 Setting Ventilator Respiratory Rate 22 Setting Ventilator Respiratory Rate 22 Setting Ventilator Respiratory Rate 22 Setting Ventilator Respiratory Rate 22 Setting Ventilator Respiratory Rate 22 Setting Ventilator Respiratory Rate 22 Setting Ventilator Respiratory Rate 22 Setting Ventilator Respiratory Rate 22 Setting Actual Respiratory Rate 23 Actual Respiratory Rate 24 Actual Respiratory Rate 22 Actual Respiratory Rate 22 Actual Respiratory Rate 30 Actual Respiratory Rate 22 Actual Respiratory Rate 22 Actual Respiratory Rate 22 Actual Respiratory Rate 25 Actual Respiratory Rate 22 Actual Respiratory Rate 23 Actual Respiratory Rate 23 Positive End Expiratory 5 Pressure Positive End Expiratory 5 Pressure Positive End Expiratory 5 Pressure Positive End Expiratory 5 Pressure Positive End Expiratory 5 Pressure Positive End Expiratory 5 Pressure Positive End Expiratory 5 Pressure Positive End Expiratory 5 Pressure Positive End Expiratory 5 Pressure Positive End Expiratory 5 Pressure Positive End Expiratory 5 Pressure Positive End Expiratory 5 Pressure Peak Inspiratory Airway 27 Pressure Peak Inspiratory Airway 21 Pressure Peak Inspiratory Airway 25 Pressure Peak Inspiratory Airway 20 Pressure Peak Inspiratory Airway 14 Pressure Peak Inspiratory Airway 23 Pressure Peak Inspiratory Airway 30 Pressure Peak Inspiratory Airway 25 Pressure Peak Inspiratory Airway 23 Pressure Peak Inspiratory Airway 23 Pressure Peak Inspiratory Airway 24 Pressure Peak Inspiratory Airway 22 Pressure Results - Laboratory Findings CBC and BMP: 06/11/16 03:37 06/11/16 03:37 ABG ABG pH 7.32 pH Units (7.32-7.45) 06/10/16 05:16 ABG pCO2 44 mmHg (35-45) 06/10/16 05:16 ABG pO2 75 mmHg (85-104) L 06/10/16 05:16 ABG O2 Saturation 94 % (95-98) L 06/10/16 05:16 PT/INR, D-dimer PT 13.4 Seconds (9.4-12.1) H 06/10/16 03:43 Abnormal lab findings: Abnormal lab results WBC 29.8 K/mcL (4.3-11.1) H 06/11/16 03:37 RDW 17.2 % (11.5-14.5) H 06/11/16 03:37 Plt Count 66 K/mcL (140-400) L 06/11/16 03:37 Neutrophils # 23.8 K/mcL (1.6-8.9) H 06/11/16 03:37 Monocytes # 4.2 K/mcL (0.0-1.3) H 06/11/16 03:37 Nucleated RBCs/100 WBC 1.2 /100 WBC (0) H 06/11/16 03:37 Platelet Estimate Decreased (Normal) L 06/11/16 03:37 Large Platelets Present (Not Present) A 06/08/16 19:49 Immature Plt Fraction 27.9 % (1.1-6.1) H 06/09/16 04:19 Polychromasia 1+ (Not Present) A 06/11/16 03:37 Hypochromasia Present (Not Present) A 06/11/16 03:37 Poikilocytosis 1+ (Not Present) A 06/11/16 03:37 Anisocytosis 1+ (Not Present) A 06/11/16 03:37 Microcytosis Present (Not Present) A 06/11/16 03:37 Ovalocytes 1+ (Not Present) A 06/11/16 03:37 Acanthocytes (Spur) 1+ (Not Present) A 06/08/16 19:49 PT 13.4 Seconds (9.4-12.1) H 06/10/16 03:43 APTT 38.6 Seconds (26.0-36.0) H 06/05/16 03:45 ABG pO2 75 mmHg (85-104) L 06/10/16 05:16 ABG O2 Saturation 94 % (95-98) L 06/10/16 05:16 ABG Base Excess -3.5 mEq/L (-2.0 to 3.0) L 06/10/16 05:16 Sodium 127 mEq/L (136-145) L 06/11/16 03:37 Potassium 5.1 mEq/L (3.5-4.5) H 06/11/16 03:37 BUN 56 mg/dL (7-20) H 06/11/16 03:37 Creatinine 2.26 mg/dL (0.57-1.11) H 06/11/16 03:37 Est GFR ( Amer) 27 (> 60) L 06/11/16 03:37 Est GFR (Non-Af Amer) 22 (> 60) L 06/11/16 03:37 Glucose 221 mg/dL (70-99) H 06/11/16 03:37 POC Glucose 172 (58-89) H 06/11/16 11:10 Total Bilirubin 1.9 mg/dL (0.2-1.2) H 06/07/16 04:20 Direct Bilirubin 1.3 mg/dL (0.0-0.5) H 06/07/16 04:20 AST 71 Units/L (5-34) H 06/07/16 04:20 B-Natriuretic Peptide 1350 pg/mL (0-100) H 06/04/16 03:35 Albumin 2.6 g/dL (3.5-5.0) L 06/11/16 03:37 Globulin 4.4 g/dL (2.4-3.5) H 06/07/16 04:20 Albumin/Globulin Ratio 0.7 (1.1-2.2) L 06/07/16 04:20 HDL Cholesterol 15 mg/dL (40-59) L 06/04/16 03:35 TSH 6.183 mcIU/mL (0.350-4.840) H 06/03/16 21:07 Urine Blood Moderate (Negative) H 06/04/16 06:30 Ur Leukocyte Esterase Trace (Negative) H 06/04/16 06:30 Urine Microscopic RBC 15-30 per hpf (0-3) H 06/04/16 06:30 Urine Microscopic WBC 5-15 per hpf (0-3) H 06/04/16 06:30 Ur Squamous Epith Cells Many per lpf (None-Few) H 06/04/16 06:30 Ur Culture Indicated? YES (NO) A 06/04/16 06:30 Vancomycin Trough 21.4 mcg/mL (10-20) H* 06/08/16 04:13 - Microbiology Findings Microbiology Findings: Microbiology, Last 48 Hours 06/10/16 13:27 Sputum Culture - Preliminary Sputum Yeast Species 06/05/16 11:07 Blood Culture - Final Peripheral Venipuncture No growth. 06/05/16 10:51 Blood Culture - Final Peripheral Venipuncture No growth. 06/09/16 09:20 Urine Culture - Final Urine,[place] No growth. 06/04/16 08:35 Blood Culture - Final Peripheral Venipuncture No growth. - Clinical Findings Intake & Output: Intake & Output 06/10/16 06/11/16 06/11/16 23:59 07:59 15:59 Intake Total 1270 / 1270 1372 / 1372 1213.5 / 1213.5 Output Total 1178 / 1178 1899 / 1899 1184 / 1184 Balance 92 / 92 -527 / -527 29.5 / 29.5 Weight 89.8 kg - Attending Attestation I examined this patient and my medical decision-making was reviewed with the E [employer] SPECIALIST/PA/Advanced Practice Nurse/Resident Physician. I agree with the documented findings, disposition and treatment plan as described except to the extent set forth below. Patient seen and examined at bedside Labs, radiology, chart personally reviewed. All lines examined without evidence of infection. Neuropsych: intuabted and sedated. Increasing agitation started on Precedex and increased fentanyl. Avoid benzo. Continues to be alert unable to follow commands. Does all extremities spontaneously PEERL Pulm: hypoxic hypercapnic respiratory failure s/t to pulmonary edema stable. PEEP now at 5 Fio2 50% with acceptable oxygenation and ventilation. wean fio2. no more need for daily ABG unless change in clinic Cards: cardiogenic shock likely complicaed by distributive shock. with severe underlying Ischemic Cardiomyopathy leading to MOSF. Pressor requirement ( vasopressin and Levothroid) labile BP remains on Vasopressor. She has atrial fibrillation and the rate is controlled with amiodarone which we will continue we are appreciative of the ongoing support and recommendations from cardiology service FEN-GI: Cont enteral feedings. Continue bowel regimen - Bowels are moving now. cont ppi prophylaxis. Renal: Oliguric MINNIE with volume overload. CONT CVVH will increase removal rate today and monitor for worsening hypotension. Nephrology following ID: Sepsis with rising leukocytosis likely VAP. Coverning with Vanc/[place]. Cultures pending. No Yeast in UTI but noted in sputum likely contamitant. IF worsens clinical could start antifungal therapy but at present dubious that sepsis is s/t to fungal etiology Heme/Onc: . H/H stable. Thrombocytopenia likely multifactorial including infection/CVVH/MOSF w/o evidence of DIC Less likely HIT (although reamins in differential) heparin stopped send PF4. stable DVT prophylaxis with SCDs Endo: Cont to wean stress dose hydrocortisone monitor glucose, hyperglycemia con basal bolus insulin Integ/MSK: skin care per ICU protocol CODE: [id number] Family meeting tomorrow to reexamine goals of care.
[2016-06-11] MEDS: Meropenem 1,000 MG in 0.9 % Sodium Chloride Mini Bag 100 ML IVPB SCH ×3 (08:29→23:19)
[2016-06-11] MEDS: Hydrocortisone Sodium Succ 100 MG/2 ML VIAL IVP SCH ×3 (08:31→23:19)
[2016-06-11] MEDS: Chlorhexidine Rinse 15 ML MOUTHWASH MM SCH ×2 (08:32→20:14)
[2016-06-11] MEDS ORDERED: *HR* Heparin 5,000 UNIT/ML VIAL ONE ×2 (10:25→20:49)
[2016-06-11] MEDS ORDERED: 0.9 % Sodium Chloride 2,000 ML ONE ×2 (10:35→20:51)
[2016-06-11] MEDS: *HR* Midazolam HCl 2 MG/2 ML VIAL IVP PRN ×2 (11:03→17:07)
--- NOTE | 2016-06-11 11:10 | Nephrology Progress Note ---
Date of Encounter: 06/11/16 Time of Encounter: 11:05 - Assessment and Plan (1) MINNIE (acute kidney injury) Current Visit: No Status: Acute sec to ATN in the setting of cardiogenic and septic shock. Remains oliguric. Has volume overload, mild metabolic acidosis and serum potassium is trending up. currently on CVVH, prismasate k4 ca 2.5. Not on anticoagulation because of low platelets and system has clotted once in the last 24 hours pharmacy carries primasate k4 ca 2.5 and k2 and calcium 0, does not have k2 calcium 2.5 will change CVVH to CVVHDF. ( dialysate flow rate of 1 lt, replacement fluid 400 mL ) unable to add UF because of hypotension. requiring 2 pressors Leucocytosis and Thrombocytopenia. whit count is trending up and plts are trending down. cultures neg so far. Meropenem was added yesterday critically ill, prognosis remains guarded. Subjective Principal diagnosis: Shock, hyperkalemia, MINNIE, and acute on chronic respiratory failure Interval history: BP in high 80's to low 90's, levophed was increased to 20 mcgs last night, currently at 15 mcgs. In addition on vasopressin, amiodarone, fentanyl and precedex intubated, remains on 50% FiO2. Received a dose of Versed as she was fighting the vent. She was opening eyes and squeezed hands earlier today for the nursing staff. Objective - Vital Signs Vital signs: Vital Signs Temp Pulse Resp BP Pulse Ox 06/11/16 10:00 73 30 92/49 95 06/11/16 08:59 68 30 88/51 100 06/11/16 08:00 97.4 F L 64 22 87/51 100 06/11/16 07:39 64 06/11/16 07:00 61 26 96/50 99 06/11/16 06:09 23 99 06/11/16 06:00 66 23 89/48 99 06/11/16 05:00 73 26 91/51 99 06/11/16 04:08 27 90/45 94 06/11/16 04:00 97.3 F L 75 30 98/56 93 06/11/16 03:00 62 23 91/50 97 06/11/16 02:00 62 22 100/53 97 06/11/16 01:56 25 90/52 96 06/11/16 01:00 68 22 95/49 97 06/11/16 00:03 22 144/68 96 06/11/16 00:00 97 F L 61 23 106/57 97 06/10/16 23:00 65 23 95/58 97 06/10/16 22:12 25 89/48 95 06/10/16 22:00 70 23 86/53 94 06/10/16 21:00 69 27 99/54 97 06/10/16 20:22 22 90/45 95 06/10/16 20:00 97.4 F L 76 25 100/52 95 06/10/16 19:06 87 24 128/71 93 06/10/16 18:00 74 24 80/47 93 06/10/16 17:00 83 24 86/51 93 06/10/16 16:00 80 24 93/52 93 06/10/16 15:28 24 93 06/10/16 15:00 75 23 105/62 93 06/10/16 14:50 23 93 06/10/16 14:00 79 22 95/57 64 06/10/16 13:00 85 22 88/54 64 06/10/16 12:28 22 64 06/10/16 12:00 97.5 F L 68 22 86/53 95 06/10/16 11:43 74 Intake and Output 06/10/16 06/11/16 06/11/16 23:59 07:59 15:59 Intake Total 1270 / 1270 1372 / 1372 878 / 878 Output Total 1178 / 1178 1899 / 1899 666 / 666 Balance 92 / 92 -527 / -527 212 / 212 Intake: IV Fluids 1010 / 1010 1008 / 1008 726 / 726 Amiodarone 360mg/200mL 200 / 200 200 / 200 Drip Premix 360 mg In 200 ml @ 0.5 MG/MIN 16.667 mls/hr IVC CONT [facility] Rx#: [id number] PRECEDEX 400 mcg In 100 100 / 100 ml @ 0.2 MCG/KG/HR 4.51 mls/hr IVC .[id number] [facility] Rx#:[id number] FentaNYL (PF) 1,000 MCG 100 / 100 100 / 100 46 / 46 In 0.9 % Sodium Chloride 80 ML @ 25 MCG/HR 2.5 mls /hr IVC CONT [facility] Rx#: [id number] Levophed 8 MG In Dextrose 508 / 508 508 / 508 330 / 330 5% 500 ML @ 5 MCG/MIN 19 .05 mls/hr IVC CONT [facility] Rx#:[id number] Vasostrict 40 UNIT In 102 / 102 Dextrose 5% 100 ML @ 0.03 UNIT/MIN 4.59 mls/hr IVC .[id number] [facility] Rx#: [id number] Merrem 1,000 MG In 0.9 % 100 / 100 100 / 100 100 / 100 Sodium Chloride (Mini-Bag +) 100 ML @ 200 mls/hr IVPB Q8HR [facility] Rx#: [id number] Tube Feeding 260 / 260 364 / 364 152 / 152 Free Water Intake Amount 0 / 0 0 / 0 Output: Urine 0 / 0 Allison 1168 / 1168 1874 / 1874 661 / 661 Catheter 25 / 25 5 / 5 Other: Stool Size Moderate Moderate Stool Consistency soft liquid soft Stool Color Brown Brown Weight 89.8 kg Blood Glucose* 154 205 135 Patient Weight 06/11/16 23:59 Weight 89.8 kg - General Appearance Exam: CVS; s1s2 present, regular, no murmurs RESP; good air entry, clear anteriorly ABD; soft, NT, BS diminished EXT; 2+ edema. [employer]; sedated and intubated - Lab 06/11/16 03:37 06/11/16 03:37 Most recent lab results ABG pH 7.32 pH Units (7.32-7.45) 06/10/16 05:16 ABG pCO2 44 mmHg (35-45) 06/10/16 05:16 ABG pO2 75 mmHg (85-104) L 06/10/16 05:16 ABG HCO3 22.7 mEQ/L (21-27) 06/10/16 05:16 ABG O2 Saturation 94 % (95-98) L 06/10/16 05:16 Calcium 8.8 mg/dL (8.6-10.8) 06/11/16 03:37 Phosphorus 3.6 mg/dL (2.3-4.7) 06/11/16 03:37 Magnesium 2.5 mg/dL (1.6-2.6) 06/11/16 03:37 - VTE Documentation of Mechanical Device: Graduated compression elastic hosiery Consult Discharge Plan - Plan Referrals: Giovanny Reardon MD [Primary Care Provider] -
[2016-06-11] MEDS: Bisacodyl 10 MG RECTAL SUPPOSITORY RC SCH (11:12)
[2016-06-11] MEDS: *HR* Heparin 5,000 UNIT/ML VIAL IV PRN (11:33)
--- NOTE | 2016-06-11 16:43 | Cardiology Progress Note ---
Date of Encounter: 06/11/16 Time of Encounter: 10:00 Assessment and Plan (1) Heart failure, systolic and diastolic, acute on chronic Current Visit: No Status: Acute Making attempts to remove fluid with careful consideration of blood pressure. Patient's ability to compensate hemodynamically is complicated by her poor cardiac output and it will be very challenging to wean her off of the vent given this, renal failure, anuria and fluid status. The family is aware of her guarded condition. (2) Atrial fibrillation Current Visit: No Status: Chronic Presently on amiodarone drip with stable heart rates. Patient is unable to be anticoagulated at this time. Qualifiers: Atrial fibrillation type: paroxysmal Qualified Code(s): I48.0 - Paroxysmal atrial fibrillation (3) Ischemic cardiomyopathy Current Visit: No Status: Chronic History of ischemic cardiomyopathy with known severe bi-ventricular heart failure. Clinical picture suggests multiorgan failure. Her prognosis is guarded. Family has wanted to continue to keep ICD functioning at this time. Discussion w patient/family: Spoke with her and daugther today. Updated them on her clinical status and plan of fluid removal. Subjective Principal diagnosis: Shock, hyperkalemia, MINNIE, and acute on chronic respiratory failure Interval history: No new or acute overnight events. Attempting to remove fluid, -700cc overnight. Objective Vital Signs, Last 4 Hours Temp Pulse Resp BP Pulse Ox 06/11/16 16:00 97.4 F L 65 22 86/53 98 06/11/16 15:42 74 06/11/16 15:00 63 24 90/54 96 06/11/16 14:00 65 23 91/52 97 06/11/16 13:00 61 23 87/48 97 General: Other (intubated, sedated) HEENT: Atraumatic, Other (ETT in place) Cardiac: Other (no new murmur, irregularly irregular) Lungs: Other (diminished breath sounds) Neuro: Other (intubated, sedated) Extremities: Other (bilateral edema is present) Results 06/11/16 03:37 06/11/16 03:37 Lab Results 06/11/16 06/11/16 03:37 03:37 WBC 29.8 H Hgb 12.4 Hct 37.0 Plt Count 66 L Sodium 127 L Potassium 5.1 H Chloride 98 Carbon Dioxide 19 BUN 56 H Creatinine 2.26 H Glucose 221 H Calcium 8.8 Magnesium 2.5 - EKG Interpretation EKG results cardiology: other (24h telemetry demonstrates average HR 69 bpm, no concerning dysrhythmia) - VTE Documentation of Mechanical Device: Intermittent pneumatic compression device Consult Discharge Plan - Plan Referrals: Giovanny Reardon MD [Primary Care Provider] -
[2016-06-11] MEDS ORDERED: Vancomycin 1,000 MG in D5% in Water 250 ML IVPB ONE (17:37)
[2016-06-11] MEDS: Insulin DETEMIR 100 UNIT/ML X5UNITS SQ SCH (20:14)
[2016-06-11] MEDS ORDERED: 0.9 % Sodium Chloride 250 ML ONE (23:43)
[2016-06-12] MEDS: FentaNYL (PF) 1,000 MCG in 0.9 % Sodium Chloride 80 ML IVC SCH ×4 (00:09→16:11)
[2016-06-12] MEDS: *HR* Midazolam HCl 2 MG/2 ML VIAL IVP PRN ×2 (00:11→02:10)
[2016-06-12] MEDS ORDERED: 0.9 % Sodium Chloride 2,000 ML ONE (00:36)
[2016-06-12] MEDS: Ipratropium/Albuterol Neb 3 ML IH SCH ×5 (00:39→15:29)
[2016-06-12] MEDS ORDERED: 0.9 % Sodium Chloride 250 ML ONE ×2 (00:39→01:12)
[2016-06-12] MEDS ORDERED: 0.9 % Sodium Chloride 1,000 ML ONE ×3 (01:07→13:50)
[2016-06-12] MEDS: Vasopressin 40 UNIT in D5% in Water 100 ML IVC SCH (01:45)
[2016-06-12] MEDS: PrismaSATE BGK 4/2.5 5,000 ML CRRT SCH ×2 (02:00→05:43)
[2016-06-12 03:54] LABS: Calcium 8.8 mg/dL (8.6-10.8); Potassium 5.7 mEq/L (3.5-4.5)
[2016-06-12 04:00] LABS: Hemoglobin 12.1 g/dL (11.5-15.4)
[2016-06-12 04:02] LABS: Hematocrit 37.5 % (35.3-44.9); Immature Platelets 36.1 % (1.1-6.1); Mean Corpuscular HGB Conc 32.3 g/dL (31.6-35.5); Mean Corpuscular Hemoglobin 27.3 pg (28.0-33.3); Mean Corpuscular Volume 84.5 fL (83.0-100.0); Nucleated Red Blood Cells 2.5 /100 WBC (0); Red Blood Count 4.44 M/mcL (3.82-4.97); Red Cell Distribution Width 17.7 % (11.5-14.5)
[2016-06-12] MEDS: Norepinephrine 8 MG in D5% in Water 500 ML IVC SCH (04:04)
[2016-06-12] MEDS: Amiodarone Premix 360 MG/200 ML BAG IVC SCH (04:05)
[2016-06-12] MEDS: Dexmedetomidine HCl 400 MCG/100 ML MLS IVC SCH ×2 (04:07→11:13)
[2016-06-12] MEDS: Insulin LISPRO 300 UNITS/3 ML VIAL SQ SCH ×3 (04:22→12:15)
[2016-06-12] MEDS: Lacri-Lube 3.5 GM TUBE BOTH EYES SCH ×3 (04:24→12:16)
[2016-06-12 04:28] LABS: Platelet Count 73 K/mcL (140-400)
[2016-06-12 04:33] LABS: Large Platelets Present (Not Present); Lymphocytes # 1.7 K/mcL (0.6-4.6); Monocytes # 4.5 K/mcL (0.0-1.3); Neutrophils # 21.9 K/mcL (1.6-8.9); Platelet Estimate Decreased (Normal)
[2016-06-12 04:35] LABS: Poikilocytosis 1+ (Not Present); Tear Drop Cells 1+ (Not Present)
[2016-06-12] MEDS: Famotidine 20 MG/2 ML VIAL IVP SCH (05:42)
--- NOTE | 2016-06-12 06:51 | Pulmonology Progress Note ---
<Adrian Dennis - Last Filed: 06/12/16 10:50> Date of Encounter: 06/12/16 Time of Encounter: 06:51 Assessment and Plan (1) Shock Current Visit: Yes Status: Acute Likely secondary to Cardiogenic, patient has ischemic cardiomyopathy with EF 10- 15%, ICD in place, still on Levophed, and vasopressin IV drip, MAP is around 70 this AM, could not wean her more off of pressors over the weekend, she is still on Allison, total urine output was only 40 mL over the last 24 hours, overall poor prognosis, palliative team has been consulted, her code status has been changed to DNR CCA, possible withdraw of care per family members today, will talk to them and palliative team later today to decide a goal of care. (2) Acute on chronic respiratory failure with hypoxia and hypercapnia Current Visit: Yes Status: Acute Patient is still on mechanical ventilation, ABG this morning showed no significant changes compared to previous one, mixed picture of metabolic and respiratory acidosis, curently on FIO2 of 50%, RR 22 and PEEP of 5, acute on chronic respiratory failure likely multifactorial secondary to underlying bacterial pneumonia, acute exacerbation of COPD, and acute on chronic systolic CHF along with acute renal failure. Will talk to family members and palliative team today for goal of care, possible withdraw of care and terminal extubation. (3) Current Visit: Yes Status: Acute Pt was admitted on 06/03/2016, during this hospital course pt received more than 7 days worth of vanco/levaquin for possible underlying hospital acquired pneumonia (she was recently discharged from this hospital few weeks ago for community acquired pnemonia, discharge on levaquin), last week there was incidence where her PEEP increased from 5 to 8, currently back to 5, satting 97 % on FIO2 of 50, PEEP increase was likely due to pulmonary edema as she has ischemic cardiomyopathy with EF of 10 to 15%, unlikely ventilator associated pneumonia as her oxygen requirement did not go up, no significant increase in sputum secretion, chest x-ray showed no worsening infiltrates, clinically dose not look septic, her leukocytosis has been stable for last few days and cultures came back negative except dudley albican which is highly likely contaminant, therefore will stop all abxs today. (4) Leukocytosis Current Visit: Yes Status: Acute Leukocytosis got worse on 06/09/2016 after stopping the vancomycin and change Levaquin to cefepime, urine culture was negative and cefepime was changed to meropenem and vancomycin was added on 06/10/2016, white count increased on June 11 and slightly decreased today, sputum culture from June 10 came back Dudley albicans, likely contaminant, initially patient was on vancomycin and Levaquin for possible underlying hospital-acquired bacterial pneumonia, treated for more than a week, all cultures are negative except contaminant mentioned above, clinically pt does not look septic/infectious, will stop all the abxs today. Qualifiers: Qualified Code(s): D72.829 - Elevated white blood cell count, unspecified (5) Thrombocytopenia Current Visit: Yes Status: Acute It has been stable over the last several days, PF4 IgG antibody was normal, likely secondary to underlying infection in which she completed abxs for more than a week, will con't to monitor platelet level. (6) Ischemic cardiomyopathy Current Visit: Yes Status: Acute Previous echo on December 2015 showed left ventricular ejection fraction 15-20% with global left ventricular systolic dysfunction and severely dilated left ventricle, ICD in place, dobutamine drip was stopped last week. HR stable, MAP is around 70 on levophed and vasopressin drip, overall poor prognosis, palliative team has been consulted and cardio has been following, family member spoke to cardiology today, their wish was to turn off the defibrillator today, will discuss with cardiology team if there is anything else we can offer pt here and elsewhere before the family members decide to withdraw care today. (7) Acute kidney injury Current Visit: Yes Status: Acute This could be secondary to cardiorenal with a history of ischemic cardiomyopathy and/or prerenal from septic shock, nephrology has been consulted , renal function is slightly better than yesterday but still oliguric, nephrology has been following, con't with Allison, will follow their recommendations. (8) Hyponatremia Current Visit: Yes Status: Acute Sodiums level stable for the last several days, hx with of ischemic cardiomyopathy and pedal pitting edema, presented with MINNIE, possible underlying hypotonic hypervoleic hyponatremia, nephrology has been following, no change in Allison setting, will follow their recommendations and continue to monitor sodium level. (9) Acute exacerbation of chronic obstructive airways disease Current Visit: Yes Status: Acute Extensive hx of smoking, this could be contributing to her acute on chronic respiratory failure picture, con't duoneb, IV steroid, and oxygen support. (10) Atrial fibrillation with RVR Current Visit: Yes Status: Acute Tikosyn is on hold now, currently on amiodarone drip, HR has been stable, cardio has been following. (11) Hyperglycemia Current Visit: Yes Status: Acute Last A1C was 6.7 on 11/20/2013, now on IV steroid, decreased dosage, glucose has been stable, continue current insulin regimen of sliding scale insulin and basal coverage. (12) DVT prophylaxis Current Visit: Yes Status: Acute IPC. Subjective Principal diagnosis: Shock, hyperkalemia, MINNIE, and acute on chronic respiratory failure Interval history: This is a 56 years old female with history of severe chronic systolic CHF, ischemic cardiomyopathy EF 10-15% with ICD, atrial fibrillation, COPD, cardiac cirrhosis and CAD, who presented to the ER with progressively worsening of shortness of breath, hypotension, acute kidney injury and hyperkalemia, subsequently patient was intubated and transferred to ICU. Patient seen and examined. No acute events overnight, total urine output is 40 mL over the last 24 hours, heart rate has been stable with amiodarone drip, currently she is on Levophed and vasopressin IV for hypotension, MAP is around 70 this AM. Patient will open her eyes to voice but does not follow simple commands. Objective PUL Vital signs: Last Vital Signs Temp 97.5 F L 06/12/16 05:00 Pulse 60 06/12/16 06:00 Resp 22 06/12/16 06:00 BP 96/55 06/12/16 06:00 Pulse Ox 97 06/12/16 06:00 General appearance: no acute distress, other (on IV sedation) Eyes: nonicteric ENT: oropharynx moist Neck: supple Effort: normal Auscultation: bilateral: diminished breath sounds (At base), rhonchi (Slightly upper bilateral) Cardiovascular: irregular rhythm Gastrointestinal: normoactive bowel sounds, soft, non-distended Integumentary: normal Extremities: no cyanosis, edema (+1 pedal pitting bilateral) Musculoskeletal: no deformities pupils equal and round, other (on IV sedation) Ventilator Settings Ventilator Settings: Ventilator Settings, Last 8 Hours Ventilator Mode VC+ Ventilator Mode VC+ Ventilator Mode VC+ Ventilator Mode VC+ Ventilator Mode VC+ Ventilator Mode VC+ Ventilator Mode VC+ Ventilator Mode VC+ Ventilator Mode VC+ Ventilator Mode VC+ Ventilator Mode VC+ Ventilator Tidal Volume 450 Setting Ventilator Tidal Volume 450 Setting Ventilator Tidal Volume 450 Setting Ventilator Tidal Volume 450 Setting Ventilator Tidal Volume 450 Setting Ventilator Tidal Volume 450 Setting Ventilator Tidal Volume 450 Setting Ventilator Tidal Volume 450 Setting Ventilator Tidal Volume 450 Setting Ventilator Tidal Volume 450 Setting Ventilator Tidal Volume 450 Setting Ventilator Respiratory Rate 22 Setting Ventilator Respiratory Rate 22 Setting Ventilator Respiratory Rate 22 Setting Ventilator Respiratory Rate 22 Setting Ventilator Respiratory Rate 22 Setting Ventilator Respiratory Rate 22 Setting Ventilator Respiratory Rate 22 Setting Ventilator Respiratory Rate 22 Setting Ventilator Respiratory Rate 22 Setting Ventilator Respiratory Rate 22 Setting Ventilator Respiratory Rate 22 Setting Actual Respiratory Rate 24 Actual Respiratory Rate 24 Actual Respiratory Rate 26 Actual Respiratory Rate 24 Actual Respiratory Rate 24 Actual Respiratory Rate 23 Actual Respiratory Rate 22 Actual Respiratory Rate 22 Actual Respiratory Rate 23 Actual Respiratory Rate 22 Actual Respiratory Rate 22 Positive End Expiratory 5 Pressure Positive End Expiratory 5 Pressure Positive End Expiratory 5 Pressure Positive End Expiratory 5 Pressure Positive End Expiratory 5 Pressure Positive End Expiratory 5 Pressure Positive End Expiratory 5 Pressure Positive End Expiratory 5 Pressure Positive End Expiratory 5 Pressure Positive End Expiratory 5 Pressure Positive End Expiratory 5 Pressure Peak Inspiratory Airway 26 Pressure Peak Inspiratory Airway 26 Pressure Peak Inspiratory Airway 24 Pressure Peak Inspiratory Airway 24 Pressure Peak Inspiratory Airway 24 Pressure Peak Inspiratory Airway 25 Pressure Peak Inspiratory Airway 25 Pressure Peak Inspiratory Airway 25 Pressure Peak Inspiratory Airway 29 Pressure Peak Inspiratory Airway 25 Pressure Peak Inspiratory Airway 25 Pressure Results - Laboratory Findings CBC and BMP: 06/12/16 03:00 06/12/16 03:00 ABG ABG pH 7.32 pH Units (7.32-7.45) 06/10/16 05:16 ABG pCO2 44 mmHg (35-45) 06/10/16 05:16 ABG pO2 75 mmHg (85-104) L 06/10/16 05:16 ABG O2 Saturation 94 % (95-98) L 06/10/16 05:16 PT/INR, D-dimer PT 13.4 Seconds (9.4-12.1) H 06/10/16 03:43 Abnormal lab findings: Abnormal lab results WBC 28.1 K/mcL (4.3-11.1) H 06/12/16 03:00 MCH 27.3 pg (28.0-33.3) L 06/12/16 03:00 RDW 17.7 % (11.5-14.5) H 06/12/16 03:00 Plt Count 73 K/mcL (140-400) L 06/12/16 03:00 Band Neutrophils % 14.0 % (0-4) H 06/12/16 03:00 Neutrophils # 21.9 K/mcL (1.6-8.9) H 06/12/16 03:00 Monocytes # 4.5 K/mcL (0.0-1.3) H 06/12/16 03:00 Nucleated RBCs/100 WBC 2.5 /100 WBC (0) H 06/12/16 03:00 Platelet Estimate Decreased (Normal) L 06/12/16 03:00 Large Platelets Present (Not Present) A 06/12/16 03:00 Immature Plt Fraction 36.1 % (1.1-6.1) H 06/12/16 03:00 Polychromasia 1+ (Not Present) A 06/11/16 03:37 Hypochromasia Present (Not Present) A 06/11/16 03:37 Poikilocytosis 1+ (Not Present) A 06/12/16 03:00 Anisocytosis 1+ (Not Present) A 06/11/16 03:37 Microcytosis Present (Not Present) A 06/11/16 03:37 Tear Drop Cells 1+ (Not Present) A 06/12/16 03:00 Ovalocytes 1+ (Not Present) A 06/11/16 03:37 Acanthocytes (Spur) 1+ (Not Present) A 06/08/16 19:49 PT 13.4 Seconds (9.4-12.1) H 06/10/16 03:43 APTT 38.6 Seconds (26.0-36.0) H 06/05/16 03:45 ABG pO2 75 mmHg (85-104) L 06/10/16 05:16 ABG O2 Saturation 94 % (95-98) L 06/10/16 05:16 ABG Base Excess -3.5 mEq/L (-2.0 to 3.0) L 06/10/16 05:16 Sodium 128 mEq/L (136-145) L 06/12/16 03:00 Potassium 5.7 mEq/L (3.5-4.5) H 06/12/16 03:00 Carbon Dioxide 17 mEq/L (19-29) L 06/12/16 03:00 BUN 52 mg/dL (7-20) H 06/12/16 03:00 Creatinine 2.11 mg/dL (0.57-1.11) H 06/12/16 03:00 Est GFR ( Amer) 29 (> 60) L 06/12/16 03:00 Est GFR (Non-Af Amer) 24 (> 60) L 06/12/16 03:00 Glucose 157 mg/dL (70-99) H 06/12/16 03:00 POC Glucose 155 (58-89) H 06/11/16 23:04 Total Bilirubin 1.9 mg/dL (0.2-1.2) H 06/07/16 04:20 Direct Bilirubin 1.3 mg/dL (0.0-0.5) H 06/07/16 04:20 AST 71 Units/L (5-34) H 06/07/16 04:20 B-Natriuretic Peptide 1350 pg/mL (0-100) H 06/04/16 03:35 Albumin 2.6 g/dL (3.5-5.0) L 06/11/16 03:37 Globulin 4.4 g/dL (2.4-3.5) H 06/07/16 04:20 Albumin/Globulin Ratio 0.7 (1.1-2.2) L 06/07/16 04:20 HDL Cholesterol 15 mg/dL (40-59) L 06/04/16 03:35 TSH 6.183 mcIU/mL (0.350-4.840) H 06/03/16 21:07 Urine Blood Moderate (Negative) H 06/04/16 06:30 Ur Leukocyte Esterase Trace (Negative) H 06/04/16 06:30 Urine Microscopic RBC 15-30 per hpf (0-3) H 06/04/16 06:30 Urine Microscopic WBC 5-15 per hpf (0-3) H 06/04/16 06:30 Ur Squamous Epith Cells Many per lpf (None-Few) H 06/04/16 06:30 Ur Culture Indicated? YES (NO) A 06/04/16 06:30 - Microbiology Findings Microbiology Findings: Microbiology, Last 48 Hours 06/10/16 13:27 Sputum Culture - Final Sputum [place] albicans 06/05/16 11:07 Blood Culture - Final Peripheral Venipuncture No growth. 06/05/16 10:51 Blood Culture - Final Peripheral Venipuncture No growth. 06/09/16 09:20 Urine Culture - Final Urine,[place] No growth. - Clinical Findings Intake & Output: Intake & Output 06/11/16 06/11/16 06/12/16 15:59 23:59 07:59 Intake Total 1716.0 / 1716.0 1471.8 / 1471.8 1243.2 / 1243.2 Output Total 1797 / 1797 1861 / 1861 980 / 980 Balance -81.0 / -81.0 -389.2 / -389.2 263.2 / 263.2 Weight 91.2 kg - VTE Documentation of Mechanical Device: Intermittent pneumatic compression device Consult Discharge Plan - Plan Referrals: Giovanny Reardon MD [Primary Care Provider] - <Anselmo Carter - Last Filed: 06/12/16 16:32> Date of Encounter: 06/12/16 Objective PUL Vital signs: Last Vital Signs Temp 97.5 F L 06/12/16 12:00 Pulse 62 06/12/16 13:00 Resp 24 06/12/16 15:29 BP 90/61 06/12/16 13:05 Pulse Ox 97 06/12/16 13:05 Ventilator Settings Ventilator Settings: Ventilator Settings, Last 8 Hours Ventilator Mode VC+ Ventilator Mode VC+ Ventilator Mode VC+ Ventilator Mode VC+ Ventilator Mode VC+ Ventilator Mode VC+ Ventilator Mode VC+ Ventilator Mode VC+ Ventilator Mode VC+ Ventilator Tidal Volume 450 Setting Ventilator Tidal Volume 450 Setting Ventilator Tidal Volume 450 Setting Ventilator Tidal Volume 450 Setting Ventilator Tidal Volume 450 Setting Ventilator Tidal Volume 450 Setting Ventilator Tidal Volume 450 Setting Ventilator Tidal Volume 450 Setting Ventilator Tidal Volume 450 Setting Ventilator Respiratory Rate 22 Setting Ventilator Respiratory Rate 22 Setting Ventilator Respiratory Rate 22 Setting Ventilator Respiratory Rate 22 Setting Ventilator Respiratory Rate 22 Setting Ventilator Respiratory Rate 22 Setting Ventilator Respiratory Rate 22 Setting Ventilator Respiratory Rate 22 Setting Ventilator Respiratory Rate 22 Setting Actual Respiratory Rate 24 Actual Respiratory Rate 22 Actual Respiratory Rate 22 Actual Respiratory Rate 22 Actual Respiratory Rate 22 Actual Respiratory Rate 22 Actual Respiratory Rate 27 Actual Respiratory Rate 22 Actual Respiratory Rate 24 Positive End Expiratory 5 Pressure Positive End Expiratory 5 Pressure Positive End Expiratory 5 Pressure Positive End Expiratory 5 Pressure Positive End Expiratory 5 Pressure Positive End Expiratory 5 Pressure Positive End Expiratory 5 Pressure Positive End Expiratory 5 Pressure Positive End Expiratory 5 Pressure Peak Inspiratory Airway 25 Pressure Peak Inspiratory Airway 27 Pressure Peak Inspiratory Airway 27 Pressure Peak Inspiratory Airway 27 Pressure Peak Inspiratory Airway 27 Pressure Peak Inspiratory Airway 26 Pressure Peak Inspiratory Airway 21 Pressure Peak Inspiratory Airway 27 Pressure Peak Inspiratory Airway 25 Pressure Results - Laboratory Findings CBC and BMP: 06/12/16 03:00 06/12/16 03:00 ABG ABG pH 7.33 pH Units (7.32-7.45) 06/12/16 08:03 ABG pCO2 43 mmHg (35-45) 06/12/16 08:03 ABG pO2 81 mmHg (85-104) L 06/12/16 08:03 ABG O2 Saturation 95 % (95-98) 06/12/16 08:03 PT/INR, D-dimer PT 13.4 Seconds (9.4-12.1) H 06/10/16 03:43 Abnormal lab findings: Abnormal lab results WBC 28.1 K/mcL (4.3-11.1) H 06/12/16 03:00 MCH 27.3 pg (28.0-33.3) L 06/12/16 03:00 RDW 17.7 % (11.5-14.5) H 06/12/16 03:00 Plt Count 73 K/mcL (140-400) L 06/12/16 03:00 Band Neutrophils % 14.0 % (0-4) H 06/12/16 03:00 Neutrophils # 21.9 K/mcL (1.6-8.9) H 06/12/16 03:00 Monocytes # 4.5 K/mcL (0.0-1.3) H 06/12/16 03:00 Nucleated RBCs/100 WBC 2.5 /100 WBC (0) H 06/12/16 03:00 Platelet Estimate Decreased (Normal) L 06/12/16 03:00 Large Platelets Present (Not Present) A 06/12/16 03:00 Immature Plt Fraction 36.1 % (1.1-6.1) H 06/12/16 03:00 Polychromasia 1+ (Not Present) A 06/11/16 03:37 Hypochromasia Present (Not Present) A 06/11/16 03:37 Poikilocytosis 1+ (Not Present) A 06/12/16 03:00 Anisocytosis 1+ (Not Present) A 06/11/16 03:37 Microcytosis Present (Not Present) A 06/11/16 03:37 Tear Drop Cells 1+ (Not Present) A 06/12/16 03:00 Ovalocytes 1+ (Not Present) A 06/11/16 03:37 Acanthocytes (Spur) 1+ (Not Present) A 06/08/16 19:49 PT 13.4 Seconds (9.4-12.1) H 06/10/16 03:43 APTT 38.6 Seconds (26.0-36.0) H 06/05/16 03:45 ABG pO2 81 mmHg (85-104) L 06/12/16 08:03 ABG Base Excess -3.2 mEq/L (-2.0 to 3.0) L 06/12/16 08:03 Sodium 128 mEq/L (136-145) L 06/12/16 03:00 Potassium 5.7 mEq/L (3.5-4.5) H 06/12/16 03:00 Carbon Dioxide 17 mEq/L (19-29) L 06/12/16 03:00 BUN 52 mg/dL (7-20) H 06/12/16 03:00 Creatinine 2.11 mg/dL (0.57-1.11) H 06/12/16 03:00 Est GFR ( Amer) 29 (> 60) L 06/12/16 03:00 Est GFR (Non-Af Amer) 24 (> 60) L 06/12/16 03:00 Glucose 157 mg/dL (70-99) H 06/12/16 03:00 POC Glucose 120 (58-89) H 06/12/16 11:48 Total Bilirubin 1.9 mg/dL (0.2-1.2) H 06/07/16 04:20 Direct Bilirubin 1.3 mg/dL (0.0-0.5) H 06/07/16 04:20 AST 71 Units/L (5-34) H 06/07/16 04:20 B-Natriuretic Peptide 1350 pg/mL (0-100) H 06/04/16 03:35 Albumin 2.6 g/dL (3.5-5.0) L 06/11/16 03:37 Globulin 4.4 g/dL (2.4-3.5) H 06/07/16 04:20 Albumin/Globulin Ratio 0.7 (1.1-2.2) L 06/07/16 04:20 HDL Cholesterol 15 mg/dL (40-59) L 06/04/16 03:35 TSH 6.183 mcIU/mL (0.350-4.840) H 06/03/16 21:07 Urine Blood Moderate (Negative) H 06/04/16 06:30 Ur Leukocyte Esterase Trace (Negative) H 06/04/16 06:30 Urine Microscopic RBC 15-30 per hpf (0-3) H 06/04/16 06:30 Urine Microscopic WBC 5-15 per hpf (0-3) H 06/04/16 06:30 Ur Squamous Epith Cells Many per lpf (None-Few) H 06/04/16 06:30 Ur Culture Indicated? YES (NO) A 06/04/16 06:30 - Microbiology Findings Microbiology Findings: Microbiology, Last 48 Hours 06/10/16 13:27 Sputum Culture - Final Sputum [place] albicans 06/05/16 11:07 Blood Culture - Final Peripheral Venipuncture No growth. 06/05/16 10:51 Blood Culture - Final Peripheral Venipuncture No growth. - Clinical Findings Intake & Output: Intake & Output 06/12/16 06/12/16 06/12/16 07:59 15:59 23:59 Intake Total 1593.0 / 1593.0 478.3 / 478.3 100 / 100 Output Total 1219 / 1219 1411 / 1411 Balance 374.0 / 374.0 -932.7 / -932.7 100 / 100 Weight 91.2 kg - Attending Attestation I examined this patient and my medical decision-making was reviewed with the EMERGENCY VETERINARY ASSISTANT/PA/Advanced Practice Nurse/Resident Physician. I agree with the documented findings, disposition and treatment plan as described except to the extent set forth below. Patient seen and examined. Labs, radiology, chart personally reviewed. Agree with resident's history and physical, assessment, plan with following comments: PROGRAM EVALUATION CONSULTANT: Patient follows commands when sedation is being weaned off, Pulmonary: Acceptable oxygenation and ventilation. Repeat ABGs acceptable Cardiovascular: Unstable GI: Nutrition per dietary and GI prophylaxis per routine Heme: DVT prophylaxis per routine ID: Continue antibiotics and plan to de-escalation Renal; urine out put and renal funtion reviewed Endorcine: blood glucose is monitored Lines: all lines checked and no evidence of infections Skin: skin care to prevent pressure ulcers per nursing routine care Extremely poor prognosis and discussed with the family patient was changed to comfort care. Personnel Training Officer has seen patient for deactivate ICD. Suspect patient will after extubation and stop vasopressors.
[2016-06-12 08:12] LABS: ABG Base Excess -3.2 mEq/L (-2.0 to 3.0); ABG HCO3 22.7 mEQ/L (21-27); ABG Oxygen Saturation 95 % (95-98); ABG PCO2 43 mmHg (35-45); ABG PH 7.33 pH Units (7.32-7.45); ABG PO2 81 mmHg (85-104)
[2016-06-12 08:13] LABS: Blood Gas FiO2 50 %
--- NOTE | 2016-06-12 08:24 | Nephrology Progress Note ---
Date of Encounter: 06/12/16 Time of Encounter: 08:22 - Assessment and Plan (1) MINNIE (acute kidney injury) Current Visit: No Status: Acute The patient remains dialysis dependent. Her creatinine is down a bit. Potassium is rising. We will change her replacement fluid to a 2K concentration. (2) Ischemic cardiomyopathy Current Visit: No Status: Chronic (3) CAP (community acquired pneumonia) Current Visit: No Status: Acute Subjective Principal diagnosis: Shock, hyperkalemia, MINNIE, and acute on chronic respiratory failure Interval history: Patient remains oliguric. She is now on CVVHDF. Her hyperkalemia is worsening. She remains oliguric. She remains on vasopressors for blood pressure support. She remains intubated and on the ventilator. Objective - Vital Signs Vital signs: Vital Signs Temp Pulse Resp BP Pulse Ox 06/12/16 08:00 97.5 F L 64 25 95/54 97 06/12/16 06:59 60 22 82/49 97 06/12/16 06:00 60 22 96/55 97 06/12/16 05:35 24 80/47 97 06/12/16 05:00 97.5 F L 65 26 93/59 97 06/12/16 04:00 64 24 128/77 97 06/12/16 03:33 24 102/57 97 06/12/16 03:00 62 23 96/59 97 06/12/16 02:00 71 22 100/56 97 06/12/16 00:58 78 22 88/59 97 06/12/16 00:39 23 90/53 97 06/12/16 00:00 67 22 114/64 97 06/11/16 23:09 61 06/11/16 23:00 97.4 F L 60 22 90/50 97 06/11/16 22:00 60 22 89/53 97 06/11/16 21:55 22 86/57 97 06/11/16 21:00 61 22 100/53 97 06/11/16 20:00 97.3 F L 60 22 77/45 97 06/11/16 19:41 23 97/50 97 06/11/16 19:25 66 06/11/16 19:00 65 23 96/53 97 06/11/16 18:00 64 25 96/51 97 06/11/16 17:54 22 81/43 97 06/11/16 17:00 62 30 97/55 97 06/11/16 16:00 97.4 F L 65 22 86/53 98 06/11/16 15:42 74 06/11/16 15:39 30 97/55 95 06/11/16 15:00 63 24 90/54 96 06/11/16 14:00 65 23 91/52 97 06/11/16 13:55 28 92/53 97 06/11/16 13:00 61 23 87/48 97 06/11/16 12:00 68 24 93/52 97 06/11/16 11:19 25 94/56 96 06/11/16 11:00 97.4 F L 66 30 89/52 95 06/11/16 10:00 73 30 92/49 95 06/11/16 09:05 22 87/51 100 06/11/16 08:59 68 30 88/51 100 Intake and Output 06/11/16 06/12/16 06/12/16 23:59 07:59 15:59 Intake Total 1471.8 / 1471.8 1593.0 / 1593.0 58 / 58 Output Total 1861 / 1861 1219 / 1219 223 / 223 Balance -389.2 / -389.2 374.0 / 374.0 -165 / -165 Intake: IV Fluids 1091.8 / 1091.8 1196.0 / 1196.0 Amiodarone 360mg/200mL 63.6 / 63.6 184.4 / 184.4 Drip Premix 360 mg In 200 ml @ 0.5 MG/MIN 16.667 mls/hr IVC CONT [facility] Rx#: [id number] PRECEDEX 400 mcg In 100 134.3 / 134.3 108.6 / 108.6 ml @ 0.2 MCG/KG/HR 4.51 mls/hr IVC .[id number] [facility] Rx#:[id number] FentaNYL (PF) 1,000 MCG 235.2 / 235.2 In 0.9 % Sodium Chloride 80 ML @ 25 MCG/HR 2.5 mls /hr IVC CONT [facility] Rx#: [id number] Levophed 8 MG In Dextrose 543.9 / 543.9 443.8 / 443.8 5% 500 ML @ 5 MCG/MIN 19 .05 mls/hr IVC CONT [facility] Rx#:[id number] Vasostrict 40 UNIT In 124 / 124 Dextrose 5% 100 ML @ 0.03 UNIT/MIN 4.59 mls/hr IVC .[id number] [facility] Rx#: [id number] Merrem 1,000 MG In 0.9 % 100 / 100 100 / 100 Sodium Chloride (Mini-Bag +) 100 ML @ 200 mls/hr IVPB Q8HR [facility] Rx#: [id number] Vancocin 1,000 MG In 250 / 250 Dextrose 5% 250 ML @ 167 mls/hr IVPB ONCE ONE Rx#: [id number] Tube Feeding 380 / 380 397 / 397 58 / 58 Output: Allison 1861 / 1861 1214 / 1214 218 / 218 Catheter 0 / 0 5 / 5 5 / 5 Other: Weight 91.2 kg Blood Glucose* 155 144 Patient Weight 06/12/16 23:59 Weight 91.2 kg - General Appearance Exam: Patient is in no acute distress. Lungs coarse breath sounds. Heart regular rate and rhythm. Abdomen is soft. There is no peripheral edema. There is a temporary dialysis catheter in the left femoral vein. - Lab 06/12/16 03:00 06/12/16 03:00 Most recent lab results ABG pH 7.33 pH Units (7.32-7.45) 06/12/16 08:03 ABG pCO2 43 mmHg (35-45) 06/12/16 08:03 ABG pO2 81 mmHg (85-104) L 06/12/16 08:03 ABG HCO3 22.7 mEQ/L (21-27) 06/12/16 08:03 ABG O2 Saturation 95 % (95-98) 06/12/16 08:03 Calcium 8.8 mg/dL (8.6-10.8) 06/12/16 03:00 Phosphorus 3.6 mg/dL (2.3-4.7) 06/11/16 03:37 Magnesium 2.5 mg/dL (1.6-2.6) 06/11/16 03:37 - VTE Documentation of Mechanical Device: Intermittent pneumatic compression device Consult Discharge Plan - Plan Referrals: Giovanny Reardon MD [Primary Care Provider] -
[2016-06-12] MEDS: Chlorhexidine Rinse 15 ML MOUTHWASH MM SCH (08:44)
[2016-06-12] MEDS ORDERED: PRISMASATE BGK IVPB SCH (08:45)
[2016-06-12] MEDS ORDERED: CALCIUM GLUCONATE IVPB SCH (08:45)
[2016-06-12] MEDS: Hydrocortisone Sodium Succ 100 MG/2 ML VIAL IVP SCH (08:45)
[2016-06-12] MEDS: Meropenem 1,000 MG in 0.9 % Sodium Chloride Mini Bag 100 ML IVPB SCH (08:45)
[2016-06-12] MEDS: Bisacodyl 10 MG RECTAL SUPPOSITORY RC SCH (08:46)
--- NOTE | 2016-06-12 11:05 | Cardiology Progress Note ---
Date of Encounter: 06/12/16 Time of Encounter: 08:30 Assessment and Plan (1) Heart failure, systolic and diastolic, acute on chronic Current Visit: No Status: Acute Patient currently on vasopressin, norepinephrine, amiodarone Dobutamine was discontinued yesterday Patient demonstrating inability to compensate hemodynamically likely multifactorial due to poor cardiac output Heart failure complicating renal failure, anuria and fluid status I have discussed with patient's and patient's father regarding her poor prognosis (2) Atrial fibrillation Current Visit: No Status: Chronic Presently on amiodarone drip with HR 130s Patient is unable to be anticoagulated at this time Qualifiers: Atrial fibrillation type: paroxysmal Qualified Code(s): I48.0 - Paroxysmal atrial fibrillation (3) Ischemic cardiomyopathy Current Visit: No Status: Chronic History of ischemic cardiomyopathy with known severe bi-ventricular heart failure Clinical picture suggests multiorgan failure, poor prognosis Family would like to discontinue ICD function at this time, but would like to continue pacer function Discussion w patient/family: The assessment and plan as outlined above was discussed with the patient and/or family members who expressed understanding and agreement. All questions were answered. Thank you for involving us in the care of your patient. Please call with any questions. Subjective Principal diagnosis: Shock, hyperkalemia, MINNIE, and acute on chronic respiratory failure Interval history: Discussed with patient's and patient's father the patient's poor prognosis. Family is considering discontinuing care. Objective Vital Signs, Last 4 Hours Temp Pulse Resp BP Pulse Ox 06/12/16 10:00 68 27 98/65 98 06/12/16 09:00 75 24 98/58 06/12/16 08:00 97.5 F L 69 25 95/54 97 General: Other (Intuabated, able to squeeze hand upon command, otherwise unable to communicate with patient) HEENT: Atraumatic, Normocephaly Cardiac: Other (Irregulary rhythm, tachycardia at HR 133, unable to appreciate heart sounds due to loud rhonchi ) Lungs: Other (Coarse rhonchi in all lung merlos) Neuro: Other (Eyes open, sedated, able to follow command and to squeeze hand) Abdomen: Soft Skin: No rashes noted on visualized skin Extremities: No Clubbing, No Cyanosis, No Edema Other: No urine output to umana Results 06/12/16 03:00 06/12/16 03:00 Lab Results 06/12/16 06/12/16 03:00 03:00 WBC 28.1 H Hgb 12.1 Hct 37.5 Plt Count 73 L Sodium 128 L Potassium 5.7 H Chloride 100 Carbon Dioxide 17 L BUN 52 H Creatinine 2.11 H Glucose 157 H Calcium 8.8 - Imaging and Cardiology Chest Xray: report reviewed Echo: report reviewed - EKG Interpretation EKG results cardiology: personally reviewed, normal ECG (afib) - VTE Documentation of Mechanical Device: Intermittent pneumatic compression device Consult Discharge Plan - Plan Referrals: Giovanny Reardon MD [Primary Care Provider] -
--- NOTE | 2016-06-12 13:25 | Event Note ---
Date of Encounter: 06/12/16 Time of Encounter: 13:30 - Cardiology Event Note Per discussion with Dr. Cabrera, ICD to be deactivated. Pacer clinic notified and order on chart. Anticipate deactivation this PM.
[2016-06-12] MEDS ORDERED: *HR* LORazepam 2 MG/ML VIAL IVP PRN (13:52)
[2016-06-12 13:57] VITALS: BP 90/61
[2016-06-12] MEDS ORDERED: Atropine Sulfate 1% 40 DROP/2 ML BOTTLE SL PRN (14:01)
--- NOTE | 2016-06-12 14:06 | Palliative Progress Note ---
Date of Encounter: 06/12/16 Time of Encounter: 14:00 - Assessment and plan (1) Generalized pain Current Visit: Yes Status: Acute Assessment and plan: Continue Fentanyl drip per ICU protocol and monitor. (2) Anxiety Current Visit: Yes Status: Acute Assessment and plan: Will add Lorazepam 1mg IV every 2 hours PRN and monitor. D/C Midolazam and Precedex. (3) Goals of care, counseling/discussion Current Visit: No Status: Acute Assessment and plan: Family have decided to transition to DNRCC, turn off AICD, and remove ventilator. Will plan for compassionate extubation this afternoon. Will transition to palliative unit under hospitalist care if stable and evaluate for inpt hospice tomorrow if she survives the night. (4) Ischemic cardiomyopathy Current Visit: No Status: Chronic (5) Heart failure, systolic and diastolic, acute on chronic Current Visit: No Status: Acute (6) Sepsis Current Visit: No Status: Acute Qualifiers: Sepsis type: sepsis due to unspecified organism Qualified Code(s): A41.9 - Sepsis, unspecified organism - Time Spent With Patient Total time spent is greater than 50% in coordination of care (as documented) at patient's floor/unit and/or counseling patient: 25 - 35 minutes - Subjective Interval history: Patient with no significant improvement over the weekend. Still with minimal urine output, remains on 2 pressors. Cardiology/ICU/Nephrology notes reviewed. Dr. Carter and Dr. Cabrera have both spoken with pt family. - Constitutional Vitals: Abnormal lab results WBC 28.1 K/mcL (4.3-11.1) H 06/12/16 03:00 MCH 27.3 pg (28.0-33.3) L 06/12/16 03:00 RDW 17.7 % (11.5-14.5) H 06/12/16 03:00 Plt Count 73 K/mcL (140-400) L 06/12/16 03:00 Band Neutrophils % 14.0 % (0-4) H 06/12/16 03:00 Neutrophils # 21.9 K/mcL (1.6-8.9) H 06/12/16 03:00 Monocytes # 4.5 K/mcL (0.0-1.3) H 06/12/16 03:00 Nucleated RBCs/100 WBC 2.5 /100 WBC (0) H 06/12/16 03:00 Platelet Estimate Decreased (Normal) L 06/12/16 03:00 Large Platelets Present (Not Present) A 06/12/16 03:00 Immature Plt Fraction 36.1 % (1.1-6.1) H 06/12/16 03:00 Polychromasia 1+ (Not Present) A 06/11/16 03:37 Hypochromasia Present (Not Present) A 06/11/16 03:37 Poikilocytosis 1+ (Not Present) A 06/12/16 03:00 Anisocytosis 1+ (Not Present) A 06/11/16 03:37 Microcytosis Present (Not Present) A 06/11/16 03:37 Tear Drop Cells 1+ (Not Present) A 06/12/16 03:00 Ovalocytes 1+ (Not Present) A 06/11/16 03:37 Acanthocytes (Spur) 1+ (Not Present) A 06/08/16 19:49 PT 13.4 Seconds (9.4-12.1) H 06/10/16 03:43 APTT 38.6 Seconds (26.0-36.0) H 06/05/16 03:45 ABG pO2 81 mmHg (85-104) L 06/12/16 08:03 ABG Base Excess -3.2 mEq/L (-2.0 to 3.0) L 06/12/16 08:03 Sodium 128 mEq/L (136-145) L 06/12/16 03:00 Potassium 5.7 mEq/L (3.5-4.5) H 06/12/16 03:00 Carbon Dioxide 17 mEq/L (19-29) L 06/12/16 03:00 BUN 52 mg/dL (7-20) H 06/12/16 03:00 Creatinine 2.11 mg/dL (0.57-1.11) H 06/12/16 03:00 Est GFR ( Amer) 29 (> 60) L 06/12/16 03:00 Est GFR (Non-Af Amer) 24 (> 60) L 06/12/16 03:00 Glucose 157 mg/dL (70-99) H 06/12/16 03:00 POC Glucose 120 (58-89) H 06/12/16 11:48 Total Bilirubin 1.9 mg/dL (0.2-1.2) H 06/07/16 04:20 Direct Bilirubin 1.3 mg/dL (0.0-0.5) H 06/07/16 04:20 AST 71 Units/L (5-34) H 06/07/16 04:20 B-Natriuretic Peptide 1350 pg/mL (0-100) H 06/04/16 03:35 Albumin 2.6 g/dL (3.5-5.0) L 06/11/16 03:37 Globulin 4.4 g/dL (2.4-3.5) H 06/07/16 04:20 Albumin/Globulin Ratio 0.7 (1.1-2.2) L 06/07/16 04:20 HDL Cholesterol 15 mg/dL (40-59) L 06/04/16 03:35 TSH 6.183 mcIU/mL (0.350-4.840) H 06/03/16 21:07 Urine Blood Moderate (Negative) H 06/04/16 06:30 Ur Leukocyte Esterase Trace (Negative) H 06/04/16 06:30 Urine Microscopic RBC 15-30 per hpf (0-3) H 06/04/16 06:30 Urine Microscopic WBC 5-15 per hpf (0-3) H 06/04/16 06:30 Ur Squamous Epith Cells Many per lpf (None-Few) H 06/04/16 06:30 Ur Culture Indicated? YES (NO) A 06/04/16 06:30 General appearance: Present: no acute distress - Respiratory Additional comments: Breath sounds course throughout. Remains on vent - Cardiovascular Cardiovascular exam: Present: +S1, +S2 - GI/Abdominal GI/Abdominal exam: Present: diminished bowel sounds, distended, soft - Additional comments: Acosta with few drops urine in tubing - Extremities Exam Additional comments: generalized upper and lower extremity edema - Neurological Exam Additional comments: Sedated on ventilator. Has been anxious when awake - Skin Skin exam: Present: warm Palliative Quality Palliative Quality: Screen for Code Status: Yes, Screen for Goals of Care: Yes, Screen for Pain: Yes, If Pain Regimen Started, Initiate Bowel Regimen: NA, Screen for Nausea/Vomitting: Yes Code Status: 06/04/16 01:31 CODE [Resuscitation Status: Active] [RES] Routine Comment: Resuscitation Status: DNR-Comfort Care-Arrest 06/12/16 13:51 DNR [Resuscitation Status: Active] [RES] Routine Comment: Resuscitation Status: DNR-Comfort Care - Labs CBC & Chem 7: 06/12/16 03:00 06/12/16 03:00 Labs: Laboratory Results - last 24 hr 06/09/16 06/11/16 06/11/16 11:00 15:30 15:33 WBC RBC Hgb Hct MCV MCH MCHC RDW Plt Count MPV Seg Neutrophils % Band Neutrophils % Lymphocytes % Monocytes % Neutrophils # Lymphocytes # Monocytes # Nucleated RBCs/100 WBC Platelet Estimate Large Platelets Immature Plt Fraction Poikilocytosis Tear Drop Cells ABG pH ABG pCO2 ABG pO2 ABG HCO3 ABG Total CO2 ABG O2 Saturation ABG Base Excess Blood Gas Modality Inspired O2 Sodium Potassium Chloride Carbon Dioxide BUN Creatinine Est GFR ( Amer) Est GFR (Non-Af Amer) BUN/Creatinine Ratio Glucose POC Glucose 167 H Calculated Osmolality Calcium Vancomycin Trough 14.7 Heparin-PF4 IgG Ab 0.093 06/11/16 06/11/16 06/12/16 20:12 23:04 03:00 WBC 28.1 H RBC 4.44 Hgb 12.1 Hct 37.5 MCV 84.5 MCH 27.3 L MCHC 32.3 RDW 17.7 H Plt Count 73 L MPV TNP Seg Neutrophils % 64.0 Band Neutrophils % 14.0 H Lymphocytes % 6.0 Monocytes % 16.0 Neutrophils # 21.9 H Lymphocytes # 1.7 Monocytes # 4.5 H Nucleated RBCs/100 WBC 2.5 H Platelet Estimate Decreased L Large Platelets Present A Immature Plt Fraction 36.1 H Poikilocytosis 1+ A Tear Drop Cells 1+ A ABG pH ABG pCO2 ABG pO2 ABG HCO3 ABG Total CO2 ABG O2 Saturation ABG Base Excess Blood Gas Modality Inspired O2 Sodium Potassium Chloride Carbon Dioxide BUN Creatinine Est GFR ( Amer) Est GFR (Non-Af Amer) BUN/Creatinine Ratio Glucose POC Glucose 162 H 155 H Calculated Osmolality Calcium Vancomycin Trough Heparin-PF4 IgG Ab 06/12/16 06/12/16 06/12/16 03:00 07:58 08:03 WBC RBC Hgb Hct MCV MCH MCHC RDW Plt Count MPV Seg Neutrophils % Band Neutrophils % Lymphocytes % Monocytes % Neutrophils # Lymphocytes # Monocytes # Nucleated RBCs/100 WBC Platelet Estimate Large Platelets Immature Plt Fraction Poikilocytosis Tear Drop Cells ABG pH 7.33 ABG pCO2 43 ABG pO2 81 L ABG HCO3 22.7 ABG Total CO2 24.0 ABG O2 Saturation 95 ABG Base Excess -3.2 L Blood Gas Modality VC+ Inspired O2 50 Sodium 128 L Potassium 5.7 H Chloride 100 Carbon Dioxide 17 L BUN 52 H Creatinine 2.11 H Est GFR ( Amer) 29 L Est GFR (Non-Af Amer) 24 L BUN/Creatinine Ratio 25 Glucose 157 H POC Glucose 144 H Calculated Osmolality 283 Calcium 8.8 Vancomycin Trough Heparin-PF4 IgG Ab 06/12/16 11:48 WBC RBC Hgb Hct MCV MCH MCHC RDW Plt Count MPV Seg Neutrophils % Band Neutrophils % Lymphocytes % Monocytes % Neutrophils # Lymphocytes # Monocytes # Nucleated RBCs/100 WBC Platelet Estimate Large Platelets Immature Plt Fraction Poikilocytosis Tear Drop Cells ABG pH ABG pCO2 ABG pO2 ABG HCO3 ABG Total CO2 ABG O2 Saturation ABG Base Excess Blood Gas Modality Inspired O2 Sodium Potassium Chloride Carbon Dioxide BUN Creatinine Est GFR ( Amer) Est GFR (Non-Af Amer) BUN/Creatinine Ratio Glucose POC Glucose 120 H Calculated Osmolality Calcium Vancomycin Trough Heparin-PF4 IgG Ab - Impressions Impressions Chest X-Ray 06/12/16 09:50 IMPRESSION: 1. Marked cardiomegaly and mild pulmonary edema, improved from prior study. Small bilateral pleural effusions. D/ / Christiano Goldberg MD / Christiano Goldberg MD Interpreting Provider: Christiano Goldberg MD - ABG Interpretation ABG results: ABG ABG pH 7.33 pH Units (7.32-7.45) 06/12/16 08:03 ABG pCO2 43 mmHg (35-45) 06/12/16 08:03 ABG pO2 81 mmHg (85-104) L 06/12/16 08:03 ABG O2 Saturation 95 % (95-98) 06/12/16 08:03 PT/INR, D-dimer PT 13.4 Seconds (9.4-12.1) H 06/10/16 03:43 Consult Discharge Plan - Plan Referrals: Giovanny Reardon MD [Primary Care Provider] -
[2016-06-12] MEDS ORDERED: Aminoglycoside Consult 1 EACH MC ONE (16:26)
[2016-06-12] MEDS ORDERED: *HR* FentaNYL (PF) 100 MCG/2 ML VIAL IVP PRN (16:30)
--- NOTE | 2016-06-12 16:41 | Death Note ---
<Adrian Dennis - Last Filed: 06/12/16 16:39> Discharge Sum: Summary - Date and Time Date of admission: 06/04/16 00:23 Date of : 06/12/16 Time of : 16:27 - Summary Details: This is a 56 years old female with history of severe chronic systolic CHF, ischemic cardiomyopathy EF 10-15% with ICD, atrial fibrillation, COPD, cardiac cirrhosis and CAD, who presented to the ER with progressively worsening of shortness of breath, hypotension, acute kidney injury and hyperkalemia, subsequently patient was intubated and transferred to ICU. During this hospital course, pt received IV abxs of vancomycin and levaquin for more than a week for possible underlying bacterial hospital acquired pneumonia, pressors of levophed and vasopressin drip for hypotension due to cardiogenic shock, amiodarone drip for a-fib rvr and dobutamine drip for cardiogenic shock, she was on augustine for origuric MINNIE and hyperkalemia, she was remained on mechanical ventilation for whole time, despite all treatments mentioned above, pt remained on mechanical ventilation, we were not able to wean her off of pressors to keep MAP above 65, she remained on augustine for origuric MINNIE, palliative team was involved, and her code status was changed to DNR CCA, and today family members decided to withdraw her care, pressors, augustine were turned off and she was terminally extubated, soon after pt , time of is 06/12/2016, 4:27 PM, confirmed at bedside by me with no pulse, no respirations, no heart sounds, pupils fixed and dilated, her family members were all updated at bedside. - Additional Data Confirmation of as documented by pronouncing clinician: no pulse, no respirations, no heart sounds, pupils fixed and dilated Family: at bedside Attending/PCP notified?: No Attending physician: Dr. Carter Was code activated?: No Autopsy requested?: No Organ bank notified?: No Advance directives: Yes Hospice patient?: No Discharge Sum: Diag - PCOD Probable Cause of : Heart failure - Contributing Factors (1) Shock Likely secondary to Cardiogenic, patient has ischemic cardiomyopathy with EF 10- 15% (2) Acute on chronic respiratory failure with hypoxia and hypercapnia Likely multifactorial secondary to underlying bacterial pneumonia, acute exacerbation of COPD, and acute on chronic systolic CHF along with acute renal failure (3) Ischemic cardiomyopathy Previous echo on December 2015 showed left ventricular ejection fraction 15-20% with global left ventricular systolic dysfunction and severely dilated left ventricle, defibrillator deactivated today (4) Acute kidney injury Likely secondary to cardiorenal with a history of ischemic cardiomyopathy and/ or prerenal from septic shock (5) Acute exacerbation of chronic obstructive airways disease Extensive hx of smoking, this could be contributing to her acute on chronic respiratory failure picture (6) Bacterial pneumonia Possible underlying hospital acquired pneumonia Discharge Sum: Prov - Provider Primary care physician: Giovanny Reardon MD Admitting clinician: Anselmo Carter Attending physician on admission: Guzman Baeza Consults: 06/04/16 04:30 Consult to Cardiology [CONS] Routine Comment: Consulting Provider: [facility] Reason for Consult: severe systolic dysfucntion, cardiogenic shock Call Completed: Yes Consult to Nephrology [CONS] Routine Consulting Provider: Crow Barrios Reason for Consult: MINNIE, shock, hyperkalemia Call Completed: Yes 06/04/16 07:09 Consult to Pulmonology [CONS] Routine Consulting Provider: [facility] Reason for Consult: respiratory failure, shock, MINNIE Call Completed: No 06/05/16 10:35 Consult to Palliative Care [CONS] Routine Comment: Consulting Provider: [facility] Pronouncing clinician: Anselmo Carter <Anselmo Carter - Last Filed: 06/12/16 20:23> Discharge Sum: Summary - Date and Time Date of admission: 06/04/16 00:23 - Additional Data Attending physician: Dilcia Meza Discharge Sum: Prov - Provider Primary care physician: Giovanny Reardon MD Consults: 06/04/16 04:30 Consult to Cardiology [CONS] Routine Comment: Consulting Provider: [facility] Reason for Consult: severe systolic dysfucntion, cardiogenic shock Call Completed: Yes Consult to Nephrology [CONS] Routine Consulting Provider: Crow Barrios Reason for Consult: MINNIE, shock, hyperkalemia Call Completed: Yes 06/04/16 07:09 Consult to Pulmonology [CONS] Routine Consulting Provider: [facility] Reason for Consult: respiratory failure, shock, MINNIE Call Completed: No 06/05/16 10:35 Consult to Palliative Care [CONS] Routine Comment: Consulting Provider: Palliative [facility] Myranda - Attending Attestation I examined this patient and my medical decision-making was reviewed with the NEWSPAPER WRITER/PA/Advanced Practice Nurse/Resident Physician. I agree with the documented findings, disposition and treatment plan as described except to the extent set forth below. Patient with poor prognosis and remained on ventilator and multiple pressors to help her BP. Today we met with family with palliative care and due to multi- organs failure and poor prognosis, the family decided to keep patient comfortable and soon after life supports were stopped supporting her ciculatory system, she and family at bedside.
== END 2016-06-12 16:27 | disposition expired | DRG 870 ==
LOC: EMEROO 17:25 → 1NENULAB 17:25
PROVIDERS: ADMIT Nurse Practitioner Family; ATTEND Nurse Practitioner Family